=== PATIENT | female | born 1940 ===

== ENCOUNTER 2017-11-10 14:47 | Inpatient (IN) | payer MEDICARE ==
[2017-11-10] MEDS ORDERED: Ondansetron INJ* 2 MG/ML VIAL IV PRN (16:51)
[2017-11-10] MEDS ORDERED: Al Hydrox/Mg Hydrox/Simet LIQ* 30 ML UDC PO PRN (16:51)
[2017-11-10] MEDS ORDERED: NS 0.9% 1000 ML* 1,000 ML IV SCH (17:00)
[2017-11-10] MEDS ORDERED: Dextrose 50% Syringe 50 ML* 25 GM/50 ML SYRINGE IV PUSH PRN (17:05)
[2017-11-10] MEDS: Morphine VIAL* 4 MG/ML VIAL (1 ml vial) IV PRN ×3 (17:47→23:01)
[2017-11-10] MEDS: Ketorolac INJ* 15 MG/ML 1 ML VIAL IV PUSH PRN (17:49)
--- NOTE | 2017-11-10 18:01 | RAD ---
Indication: Shortness of breath. RIGHT femoral neck fracture Comparison: No relevant prior exams available on the [facility] PACS for comparison. Technique: Supine portable chest 1726 hours Report: Elevated lung volumes and both diffuse mild prominence of the interstitial markings and patchy rarefaction of the mid to upper lung zone interstitial markings. No pulmonary infiltrate. No pleural effusions or pneumothorax evident within limits of supine technique. The heart, pulmonary vasculature, and mediastinal contours are unremarkable. Hand superimposed at the epigastric region. Surgical clips at the level of the gallbladder fossa. IMPRESSION: Stigmata of obstructive lung disease. No acute pulmonary or cardiac process evident.
[2017-11-10 18:23] LABS: ABS Basophils 0.1 10^3/ul (0-0.2); ABS Eosinophils 0.1 10^3/ul (0-0.6); ABS Lymphocytes 0.5 10^3/ul (1.0-4.8); ABS Monocytes 0.8 10^3/ul (0-0.8); ABS Neutrophils 10.2 10^3/ul (1.5-7.7); ABS Nucleated RBC 0 10^3/ul; Eosinophil % 0.5 % (0-6); Hematocrit 38 % (35-47); Hemoglobin 12.4 g/dl (12.0-16.0); Lymphocyte % 4.4 % (25-47); Mean Corpuscular HGB Conc 33 g/dl (31-36); Mean Corpuscular Hemoglobin 28 pg (27-31); Mean Corpuscular Volume 84 fL (80-97); Mean Platelet Volume 7.7 um3 (7.4-10.4); Nucleated Red Blood Cells % 0; Platelet Count 316 10^3/ul (150-450); Red Blood Count 4.51 10^6/ul (4.00-5.40); Red Cell Distribution Width 16 % (10.5-15); White Blood Count 11.7 10^3/ul (3.5-10.8)
[2017-11-10 18:30] LABS: INR 0.94 (0.77-1.02)
[2017-11-10 18:58] LABS: Urine Appearance Cloudy; Urine Blood Negative (Negative); Urine Color Amber; Urine Ketones Negative (Negative); Urine Protein Negative (Negative); Urine Specific Gravity 1.028 (1.010-1.030); Urine Urobilinogen Negative (Negative)
--- NOTE | 2017-11-10 19:37 | HP ---
CC: Dr. Lund * ADMISSION HISTORY AND PHYSICAL: DATE OF ADMISSION: 11/10/17 PATIENT OF: Aroldo Manning MD ATTENDING HOSPITALIST: Dr. Manning.* (DICTATED BY DENA GONZALEZ) CONSULTING ORTHOPEDIST: Gerard Lund MD CHIEF COMPLAINT: Right hip pain. HISTORY OF PRESENT ILLNESS: Mrs. Torres is a 77-year-old female who apparently has a past medical history significant for hypertension, diabetes mellitus, and COPD, who was transferred from [facility] to [facility] earlier today after she sustained a fall at her residence at the [place]. The patient apparently sustained multiple falls where she resides at [facility]. I have on record two different pelvis x-rays dated from late August and most recent one yesterday that revealed a displaced right femoral fracture. The patient unfortunately has been suffering from a longstanding history of dementia and she could not provide me with any significant history at this time. I have tried to contact her healthcare proxy carrier, her daughter, Tanisha. Unfortunately, I have not been able to get a hold of her over the phone. According to the record I have from [facility], the patient was evaluated due to significant complaints of right hip pain after she sustained a fall yesterday morning. She was evaluated and had hip x-ray that revealed displaced femoral neck fracture. The patient was evaluated at [facility] initially and then contact was made to [facility] provider, who accepted the transfer of the patient in anticipation for probable orthopedic intervention to fix her broken hip. She appears to be in pain upon presentation and unfortunately does not provide me with any other significant medical history. She denies any chest pain or shortness of breath. PAST MEDICAL HISTORY: Significant for hypertension, insulin-dependent diabetes mellitus, and remote history of COPD, which apparently she has not been using any nebulizer due to prior allergy of ALBUTEROL. She also has history of advanced dementia and TIA long time ago. PAST SURGICAL HISTORY: Significant for tubal ligation and cholecystectomy. CURRENT MEDICATIONS: According to [facility] records, her medication include: 1. Acetaminophen 650 mg p.o. q.6 hours as needed for fever or pain. 2. Norvasc 10 mg p.o. daily. 3. Dulcolax 10 mg suppository once per rectum daily as needed for constipation. 4. Insulin regular. 5. Humalog per sliding scale q.a.c. and q.h.s. 6. Toradol 15 mg injection IM q. day as needed for pain. 7. Melatonin 1 mg p.o. q.h.s. as needed for insomnia. 8. Metformin 750 mg p.o. daily. 9. Milk of magnesia 15 mL p.o. p.r.n. for constipation. 10. [place] 5/325 one tablet p.o. q.4 hours as needed for pain. ALLERGIES: According to record, she is allergic to ALBUTEROL. SOCIAL HISTORY: The patient was living independently at [facility] until her recent admission to [facility]. She is a former smoker who smoked for many decades and quit a long time. She drinks alcohol occasionally. Again, per [facility] record, her healthcare proxy is her daughter, Tanisha, and her home phone number is area code [phone], [phone]. REVIEW OF SYSTEMS: Unable to obtain due to advanced dementia and very minimal verbal contact. PHYSICAL EXAMINATION GENERAL: She is a frail, elderly female, appears uncomfortable with complaints of right hip pain, but in no acute distress at the time of admission. VITAL SIGNS: There is no set of vitals available at the time of admission, but we will follow her up closely once stable. HEENT: Head is normocephalic, atraumatic. Sclerae anicteric. PERRLA. EOMs intact. Oropharynx is pink and moist. NECK: Supple. Trachea midline. No cervical adenopathy, thyromegaly, or JVD. LUNGS: Clear to auscultation bilaterally. HEART: Regular rate and rhythm. Normal S1 and S2 without rubs, murmurs, or gallops. BACK: With normal curvature and no CVA tenderness. ABDOMEN: Soft, nontender, and nondistended. No hernias, masses, or hepatosplenomegaly. BREAST EXAM: Deferred at this time. EXTREMITIES: Without cyanosis, clubbing, or edema. Examination of the right lower extremity revealed a slightly shorter lower extremity on the right side that appears to be internally rotated as well. There is a significant tenderness on minimal palpation to the greater trochanteric area. There is no visible ecchymosis or swelling noted. Right shoulder with an area of ecchymosis on top of humeral head and AC joint. There is minimal tenderness on palpation and no sensation of bony injuries. RECTAL: Exam deferred at this time. NEUROLOGIC: She is awake and alert at times, also appears drowsy at other times. She is not oriented to place, time, but occasionally oriented to self. LABORATORY WORKUP: CBC, CMP, PT, INR, and UA is pending at the time of admission. ACCESSORY DIAGNOSTIC DATA: Pelvic x-rays, right hip x-rays, portable chest as well as EKG are all pending at the time of admission. IMPRESSION: A 77-year-old female with past medical history of hypertension, COPD, and insulin-dependent diabetes mellitus, who sustained multiple falls at her residence at [facility] most recently yesterday, who was found to have a displaced right femoral neck fracture. ASSESSMENT AND PLAN: 1. Right femoral neck fracture. The patient will be admitted under hospitalist services to surgical stay unit for pain control. She will be seen by Dr. Lund for Orthopedic consultation. We will do her workup regarding labs and accessory diagnostic data as well as probable echocardiogram in the morning for further assessment in anticipation to surgical intervention in the near future. I will attempt again to call her daughter regarding plans of care since the patient has not given me any clear answer whether she wants to proceed with any intervention at this time or not. 2. Hypertension. We will continue her amlodipine. 3. Chronic obstructive pulmonary disease. Appears stable and good oxygen saturation. We will continue to monitor. 4. Insulin-dependent diabetes mellitus. We will continue to cover her with sliding scale with fingersticks q.a.c. and q.h.s. 5. DVT prophylaxis. She is at highest risk given her age and immobility. We will cover with subcu heparin as well as SCDs. 6. Code status: For the time being and according to record, she is a full code and we will visit this issue again once I get in touch with her daughter. DENA GONZALEZ [id number]/CPS #: [id number] MTDShakira
--- NOTE | 2017-11-10 20:16 | RAD ---
Indication: RIGHT hip pain. Question hip fracture. Comparison: No relevant prior exams available on the [facility] PACS for comparison. Technique: AP frog-leg pelvis. AP and crosstable lateral views RIGHT femur. Report: The RIGHT hip is normally located. No cortical disruption or gross trabecular irregularity evident to identify fracture. Assessment is limited as there is no AP view of the femoral head and neck. The remainder of the RIGHT femur is negative for fracture. Bone density appears decreased throughout. Moderate axial joint space narrowing and medial subchondral sclerosis and cystic change at the RIGHT hip. IMPRESSION: #. Limiting assessment for fracture given absence of an AP view of the RIGHT femoral head and neck. Consider repeat radiographic exam or CT for further assessment if deemed appropriate.
--- NOTE | 2017-11-10 20:16 | RAD ---
Indication: RIGHT hip pain. Question hip fracture. Comparison: No relevant prior exams available on the [facility] [place] for [place]. Technique: AP frog-leg pelvis. AP and crosstable lateral views RIGHT femur. Report: The RIGHT hip is normally located. No cortical disruption or gross trabecular irregularity evident to identify fracture. Assessment is limited as there is no AP view of the femoral head and neck. The remainder of the RIGHT femur is negative for fracture. Bone density appears decreased throughout. Moderate axial joint space narrowing and medial subchondral sclerosis and cystic change at the RIGHT hip. IMPRESSION: #. Limiting assessment for fracture given absence of an AP view of the RIGHT femoral head and neck. Consider repeat radiographic exam or CT for further assessment if deemed appropriate.
[2017-11-10] MEDS: Insulin LISPRO* 1 UNITS UNIT SUBCUT SCH (21:27)
[2017-11-10] MEDS: Heparin VIAL(*) 5000 UNITS/ML VIAL (FIVE THOUSAND) SUBCUT SCH (21:28)
[2017-11-10] MEDS: Docusate CAP* 100 MG PO SCH (21:30)
[2017-11-10 21:37] LABS: EGFR Non-African American 154.4 (>60)
--- NOTE | 2017-11-10 22:03 | PN ---
Progress Note - Progress Note Date of Service: 11/10/17 Note: Full note dictated in system prior to obtaining CT scan. The CT demonstrates a displaced femoral neck fracture. This would most appropriately be treated by a italia arthroplasty. Will discuss with my colleagues to help facilitate surgery when she is medically optimized. NPO after midnight.
[2017-11-10] MEDS ORDERED: HYDROmorphone INJ* 0.5 MG/0.5 ML SYRINGE ONE (23:22)
[2017-11-10] MEDS: HYDROmorphone INJ* 0.5 MG/0.5 ML SYRINGE IV PRN (23:24)
--- NOTE | 2017-11-11 01:03 | CONS ---
CC: PCP, Marty Silva MD * CONSULTATION REPORT: DATE OF CONSULT: 11/10/17 CHIEF COMPLAINT: Right hip pain. HISTORY OF PRESENT ILLNESS: Briefly, this H and P is obtained from [facility] admission history and physical from 09/23/17. Briefly , Merna Torres is a [facility] resident with advanced dementia, who presents with concerns for right hip fracture. She was transferred here. We have no imaging, no history other than this document. She is nonverbal and noncompliant. She is having difficulty with ambulation and altered mental status. I do not have any documents to tell me if she ambulates with an assistive device. She has family, apparently is not able to be reached today. She has right hip pain and has pain with moving the hip. She keeps it flexed and does not move it. She is very demented and confused. PAST MEDICAL HISTORY: Significant for diabetes, hypertension, COPD, history of TIA, history of smoking. Per this note, she has refused any efforts for smoking cessation, refused medical screening, preventative screenings, any lab testing. She obtains her medications from her physician, that is the only reason why she returns to the doctor. She has recent admission for altered mental status on 09/23/17. At that time, she was living independently, then they placed her in [facility]. PAST SURGICAL HISTORY: Significant for tubal ligation, history of cholecystectomy. MEDICATIONS: According to this note, her medications are: 1. Insulin. 2. Humalog. 3. Toradol. 4. Melatonin. 5. Metformin. 6. Milk of magnesia. 7. [place]. 8. Norvasc. 9. Dulcolax. 10. Acetaminophen. ALLERGIES: To ALBUTEROL. FAMILY HISTORY: Noncontributory and unobtainable. SOCIAL HISTORY: She is now a resident of [facility]. She was a smoker for many decades and drinks alcohol on occasion. I do not have any information as to whether she ambulates with assistive devices. She is currently lying in the bed. REVIEW OF SYSTEMS: Unable to be obtained. She does not document. She does not correspond with me. She does not acknowledge my exam. She does endorse pain and shouts with motion of the leg. She is not talking to us and she has advanced dementia. PHYSICAL EXAM: The patient was examined at approximately 5:20 p.m. She is not speaking to me. She is frail, appears uncomfortable with the right hip, does not move it. She spontaneously moves both her upper extremities and her left leg. Vitals were not available at the time of my seeing her, but my most recent set of vitals are temperature 98.5, pulse 79, respiratory rate 20, O2 saturation 97%, blood pressure 133/60. EOMI. Chest is clear to auscultation. Heart is regular rate and rhythm. Abdomen is soft and nontender. Examination of her right leg demonstrates she is sitting in the frog-legged position and will not move her right hip. She is flexed and externally rotated. Examination of the left leg demonstrates she is able to flex and extend her hip with spontaneous difficulty. She does not endorse sensation to light touch grossly distally on the right side and she will spontaneously flex and extend her digits. Her digits, she has brisk cap refill, she had 2+ PT pulse. Her calf is soft and compressible. DIAGNOSTIC STUDIES/LAB DATA: White blood cell count 11.7, hematocrit of 38, platelet count of 316, INR of 0.94. Chemistry: 134, potassium 4.5, chloride 96 , carbon dioxide 29, BUN 16, creatinine 0.4. Urine is negative for infection, but positive for glucose. X-rays were obtained that are very difficult to assess due to the patient not moving her hip. The right hip femoral neck is not easy to be evaluated. There appears to be no injury to the left femoral neck. Imaging are limited due to patient's inability to comply with x-rays. Images are of very poor quality and these are of the AP pelvis, likely it sounds impacted femoral neck. ASSESSMENT AND PLAN: This is a tricky situation. I saw the patient at 5:30 and x- rays were not done until approximately 7:30. We do not see obvious fracture, but she has some injury to her hip, likely she has a displaced femoral neck fracture. The family was unable to be reached at the time of presentation to [facility]. At this point, they do not have enough history and she needs to get medical optimization. I have asked for a CT scan of the pelvis to better delineate the fracture and I have ordered that stat. I will discuss the case with one of my partners to treat her surgically once we determine exactly what surgery is appropriate for her. She needs to be optimized medically prior to this happening and we need more information. [id number]/CPS #: [id number] GRISEL
[2017-11-11] MEDS ORDERED: NS 0.9% 1000 ML* 1,000 ML IV SCH (06:15)
[2017-11-11] MEDS: Heparin VIAL(*) 5000 UNITS/ML VIAL (FIVE THOUSAND) SUBCUT SCH (06:18)
[2017-11-11] MEDS: Docusate CAP* 100 MG PO SCH ×2 (07:12→21:16)
--- NOTE | 2017-11-11 07:18 | RAD ---
INDICATION: Traumatic fracture right hip. COMPARISON: Comparison is made with a prior x-ray study of the right femur and pelvis from November 10, 2017. TECHNIQUE: Contiguous axial sections were obtained through the pelvis without intravenous or oral contrast. Images were reconstructed in the coronal and sagittal planes. FINDINGS: The bones appear osteoporotic. There is a subcapital right femoral neck fracture. The fracture fragments are overriding. There is anterior displacement of the distal fragment relative the proximal fragment and rotation of the femur. There is varus angulation. There is nonspecific sclerotic change in the ischial tuberosity. 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 There is marked enlargement of the left psoas and iliacus muscles consistent with a mass, bulky adenopathy or hematoma. The visualized portion of the small bowel and colon appear nondistended. There is a catheter within the urinary bladder. No free intraperitoneal air or fluid is seen. IMPRESSION: 1. DISPLACED ANGULATED RIGHT SUBCAPITAL FEMORAL NECK FRACTURE. 2. SCLEROTIC LESION WITHIN THE RIGHT ISCHIAL TUBEROSITY. 3. ENLARGEMENT OF THE LEFT PSOAS AND ILIACUS MUSCLES MOST CONSISTENT WITH A MASS, BULKY ADENOPATHY OR HEMATOMA. RECOMMEND A CT OF THE CHEST, ABDOMEN AND PELVIS WITH CONTRAST FOR FURTHER EVALUATION.
[2017-11-11] MEDS: Insulin LISPRO* 1 UNITS UNIT SUBCUT SCH ×5 (07:27→23:58)
[2017-11-11] MEDS: amLODIPine TAB* 5 MG PO SCH (08:26)
[2017-11-11] MEDS: NS 0.9% 1000 ML* 1,000 ML IV SCH (10:12)
[2017-11-11 10:55] LABS: ABS Basophils 0 10^3/ul (0-0.2); ABS Eosinophils 0 10^3/ul (0-0.6); ABS Lymphocytes 0.5 10^3/ul (1.0-4.8); ABS Monocytes 0.7 10^3/ul (0-0.8); ABS Neutrophils 8.6 10^3/ul (1.5-7.7); ABS Nucleated RBC 0 10^3/ul; Eosinophil % 0.4 % (0-6); Hematocrit 36 % (35-47); Hemoglobin 11.8 g/dl (12.0-16.0); Lymphocyte % 5.4 % (25-47); Mean Corpuscular HGB Conc 33 g/dl (31-36); Mean Corpuscular Hemoglobin 28 pg (27-31); Mean Corpuscular Volume 84 fL (80-97); Mean Platelet Volume 7.4 um3 (7.4-10.4); Nucleated Red Blood Cells % 0.1; Platelet Count 319 10^3/ul (150-450); Red Blood Count 4.28 10^6/ul (4.00-5.40); Red Cell Distribution Width 16 % (10.5-15); White Blood Count 9.9 10^3/ul (3.5-10.8)
[2017-11-11] MEDS: HYDROmorphone INJ* 0.5 MG/0.5 ML SYRINGE IV PRN ×3 (10:59→21:20)
[2017-11-11 11:02] LABS: INR 0.94 (0.77-1.02)
[2017-11-11 11:14] LABS: EGFR Non-African American 180.1 (>60)
[2017-11-11] MEDS ORDERED: Iodixanol* (CONTRAST) 320 MG/ML 100 ML SDV IV ONE ×2 (11:39→19:20)
--- NOTE | 2017-11-11 11:42 | ECHO ---
Patient: DAVE THOMPSON [facility] Rec#: [id number] : 1940 Date: 11/11/2017 Age: 77y Height: 160 cm / 63.0 in Weight: 51.3 kg / 113.1 lbs Sex: F BSA: 1.5 Room#: 336 Admit Date#: 11/10/2017 Type: Inpatient Referring: Nany Byers Reading: Jono Hernández MD Carpet Inspector Finished: Marie Fairbanks RN RDCS CC: Marty Silva MD Transthoracic Echocardiogram Indication: Hypertension BP: 131/48 HR: 73 Rhythm: NSR with PACs Findings History: HTN, DM, COPD, former smoker, TIA, dementia Technical Comments: The study quality is fair. The study is technically limited due to the patient's history of COPD. The study was technically limited due to the patient's inability to lay in the left lateral decubitus position. Completed at 1115. Left Ventricle: The left ventricular chamber size is normal. Mild concentric left ventricular hypertrophy is observed. There is increased basal septal hypertrophy noted without evidence of an increased gradient across the left ventricular outflow tract. Global left ventricular wall motion and contractility are within normal limits. There is normal left ventricular systolic function. The estimated ejection fraction is 50-55%. There is an E to A reversal in the mitral valve flow pattern suggestive of diastolic dysfunction. Left Atrium: The left atrial chamber size is normal. Right Ventricle: The right ventricle wall thickness is mildly increased. The right ventricular cavity size is normal. The right ventricular global systolic function is normal. Right Atrium: The right atrial cavity size is normal. Aortic Valve: The aortic valve is trileaflet. The aortic valve leaflets are mildly thickened. There is mild to moderate aortic regurgitation. There is no evidence of aortic stenosis. Mitral Valve: The mitral valve leaflets are mildly thickened. There is mild to moderate mitral regurgitation. Tricuspid Valve: The tricuspid valve leaflets are normal. There is mild to moderate tricuspid regurgitation. There is evidence of mild to moderate pulmonary hypertension. Pulmonic Valve: The pulmonic valve structure is not well visualized. There is no evidence of pulmonic regurgitation. There is no pulmonic stenosis. Pericardium: There is no significant pericardial effusion. Aorta: The ascending aorta is not well visualized. There is no dilatation of the aortic arch. The aortic root is normal in size. Pulmonary Artery: The main pulmonary artery is not well visualized. Venous: The inferior vena cava appears normal in size. There is an approximate 50% respiratory change in the inferior vena cava dimension. Conclusions There is normal left ventricular systolic function. The estimated ejection fraction is 50-55%. Global left ventricular wall motion and contractility are within normal limits. Mild concentric left ventricular hypertrophy is observed. There is an E to A reversal in the mitral valve flow pattern suggestive of diastolic dysfunction. There is mild to moderate aortic regurgitation. There is mild to moderate mitral regurgitation. There is mild to moderate tricuspid regurgitation. There is evidence of mild to moderate pulmonary hypertension. There is no prior echocardiogram available to compare with at this time. Measurements Name Value Normal Range RVIDd (AP) 2D 2.2 cm (0.9 - 2.6) RVDdMajor (2D) 3 cm (2.2 - 4.4) RVAW (2D) 0.8 cm (0.2 - 0.5) RAd ISD 4CH 4.7 cm (3.4 - 4.9) RA (A4C)W 3.4 cm (2.9 - 4.6) IVSd (2D) 1.3 cm (0.6 - 1) LVPWd (2D) 1.2 cm (0.6 - 1) LVIDd (2D) 3.9 cm (3.6 - 5.4) LVIDs (2D) 2.8 cm - LV FS (2D) 28 % (25 - 45) Aortic Annulus 2.1 cm (1.4 - 2.6) Ao root diameter (2D) 3 cm (2.1 - 3.5) Aortic arch 2.4 cm (1.8 - 3.4) LA dimension (AP) 2D 3.2 cm (2.3 - 3.8) LAd ISD 4CH 4.7 cm (2.9 - 5.3) LA ISD 4CH W 4.3 cm (2.5 - 4.5) Name Value Normal Range LA ESV SP 4CH (A/L) 55 ml - LA ESV SP 2CH (A/L) 29 ml - LA ESV BP (A/L) 41 ml - LA ESV BP (A/L) index 27 ml/m2 - LA ESV SP 4CH (MOD) 48 ml - LA ESV SP 2CH (MOD) 28 ml - Name Value Normal Range MV E-wave Vmax 0.79 m/sec - MV deceleration time 234 msec - MV A-wave Vmax 1 m/sec - MV E:A ratio 0.79 ratio - LV septal e' Vmax 0.08 m/sec - LV lateral e' Vmax 0.1 m/sec - LV E:e' septal ratio 9.9 ratio - LV E:e' lateral ratio 7.9 ratio - Name Value Normal Range AV Vmax 1.4 m/sec - AV VTI 33.9 cm - AV peak gradient 8.3 mmHg - AV mean gradient 4.3 mmHg - LVOT Vmax 1.1 m/sec - LVOT VTI 22.7 cm - LVOT peak gradient 4.8 mmHg - LVOT mean gradient 2.4 mmHg - AR PHT 432 msec - AMINATA Vmax 0.59 m/sec - Name Value Normal Range TR Vmax 3.1 m/sec - TR peak gradient 38 mmHg - RAP 8 mmHg - RVSP 46 mmHg - IVC diameter 1.6 cm - Name Value Normal Range PV Vmax 1.2 m/sec -
--- NOTE | 2017-11-11 11:49 | PN ---
Progress Note - Progress Note Date of Service: 11/11/17 SOAP: Subjective: [] Patient seen at bedside. She is nonverbal. Her daughter Sara was present and able to provide greater detail of medical history. Per Sara patient's current mental status is much worse than usual. She does typically carry on conversation , appropriately, with confusion as to location. She has "slowed down "significantly since August when she began experiencing weakness and frequent falls. At this time she transitioned from independent living at home, walking with a walker and no home health support to living at [facility]. 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 Patient did tolerate surgery well in the remote past with no family history of adverse effects of anesthesia. Objective: [] Vital Signs Temp 99.9 F 11/11/17 11:42 Pulse 81 11/11/17 11:16 Resp 14 11/11/17 11:16 BP 152/54 11/11/17 11:16 Pulse Ox 98 11/11/17 11:16 Intake & Output 11/10/17 11/11/17 11/11/17 18:59 06:59 18:59 Intake Total 0 1786 Output Total 350 Balance -350 1786 Weight 113 lb 9.6 oz Intake: IV Fluids 1786 NS (0.9%) 1786 Oral 0 0 Output: [place] 350 Other: Estimated Void Medium Laboratory Last Values WBC 9.9 10^3/ul (3.5-10.8) 11/11/17 10:50 RBC 4.28 10^6/ul (4.00-5.40) 11/11/17 10:50 Hgb 11.8 g/dl (12.0-16.0) L 11/11/17 10:50 Hct 36 % (35-47) 11/11/17 10:50 MCV 84 fL (80-97) 11/11/17 10:50 MCH 28 pg (27-31) 11/11/17 10:50 MCHC 33 g/dl (31-36) 11/11/17 10:50 RDW 16 % (10.5-15) H 11/11/17 10:50 Plt Count 319 10^3/ul (150-450) 11/11/17 10:50 MPV 7.4 um3 (7.4-10.4) 11/11/17 10:50 Neut % (Auto) 86.9 % (38-83) H 11/11/17 10:50 Lymph % (Auto) 5.4 % (25-47) L 11/11/17 10:50 [place] % (Auto) 6.8 % (0-7) 11/11/17 10:50 Eos % (Auto) 0.4 % (0-6) 11/11/17 10:50 Baso % (Auto) 0.5 % (0-2) 11/11/17 10:50 Absolute Neuts (auto) 8.6 10^3/ul (1.5-7.7) H 11/11/17 10:50 Absolute Lymphs (auto) 0.5 10^3/ul (1.0-4.8) L 11/11/17 10:50 Absolute Monos (auto) 0.7 10^3/ul (0-0.8) 11/11/17 10:50 Absolute Eos (auto) 0 10^3/ul (0-0.6) 11/11/17 10:50 Absolute Basos (auto) 0 10^3/ul (0-0.2) 11/11/17 10:50 Absolute Nucleated RBC 0 10^3/ul 11/11/17 10:50 Nucleated RBC % 0.1 11/11/17 10:50 INR (Anticoag Therapy) 0.94 (0.77-1.02) 11/11/17 10:50 Sodium 136 mmol/L (135-145) 11/11/17 10:50 Potassium 4.1 mmol/L (3.5-5.0) 11/11/17 10:50 Chloride 99 mmol/L (101-111) L 11/11/17 10:50 Carbon Dioxide 30 mmol/L (22-32) 11/11/17 10:50 Anion Gap 7 mmol/L (2-11) 11/11/17 10:50 BUN 11 mg/dL (6-24) 11/11/17 10:50 Creatinine 0.35 mg/dL (0.51-0.95) L 11/11/17 10:50 Est GFR ( Amer) 217.9 (>60) 11/11/17 10:50 Est GFR (Non-Af Amer) 180.1 (>60) 11/11/17 10:50 BUN/Creatinine Ratio 31.4 (8-20) H 11/11/17 10:50 Glucose 101 mg/dL (70-100) H 11/11/17 10:50 POC Glucose (mg/dL) 89 mg/dL (70-100) 11/11/17 07:26 Calcium 8.5 mg/dL (8.6-10.3) L 11/11/17 10:50 Total Bilirubin 0.50 mg/dL (0.2-1.0) 11/10/17 18:17 AST 44 U/L (13-39) H 11/10/17 18:17 ALT 28 U/L (7-52) 11/10/17 18:17 Alkaline Phosphatase 229 U/L (34-104) H 11/10/17 18:17 Total Protein 5.4 g/dL (6.4-8.9) L 11/10/17 18:17 Albumin 2.8 g/dL (3.2-5.2) L 11/10/17 18:17 Globulin 2.6 g/dL (2-4) 11/10/17 18:17 Albumin/Globulin Ratio 1.1 (1-3) 11/10/17 18:17 Urine Color Megha 11/10/17 18:45 Urine Appearance Cloudy 11/10/17 18:45 Urine pH 5.0 (5-9) 11/10/17 18:45 Ur Specific Doss 1.028 (1.010-1.030) 11/10/17 18:45 Urine Protein Negative (Negative) 11/10/17 18:45 Urine Ketones Negative (Negative) 11/10/17 18:45 Urine Blood Negative (Negative) 11/10/17 18:45 Urine Nitrate Negative (Negative) 11/10/17 18:45 Urine Bilirubin Negative (Negative) 11/10/17 18:45 Urine Urobilinogen Negative (Negative) 11/10/17 18:45 Ur Leukocyte Esterase Negative (Negative) 11/10/17 18:45 Urine Glucose 2+(150 mg/dl) (Negative) A 11/10/17 18:45 Urine Ascorbic Acid * (Negative) A 11/10/17 18:45 General: Laying in bed, ill appearing, Nonverbal RLE: Patient laying frog legged. DP 2+, capillary refill less than two seconds distally. BL calves supple and nontender without erythema, edema or palpable cords. Assessment: []Right femoral neck fracture Plan: []NWB RLE Patient requires hemiarthroplasty. Daughter Sara ) is agreeable to surgical intervention and understands the need for medical optimization before considering surgery. At this time it is known that prior to determining optimization patient will have a CT and CTA head, blood cultures and review of echo findings. Orthopedics will continue to follow, and when medically optimized plan for right hemiarthroplasty.
--- NOTE | 2017-11-11 11:50 | PN ---
Subjective Date of Service: 11/11/17 Interval History: Patient seen and examined. Daughter at bedside. Ekta Simmons ortho PA also present. Per patient's daughter, her mentation is not this poor. She describes her as forgetful but appropriate and usually conversant. States she's had progressive weakness over the past few months, history of smoking and last CVA in 2000 with some mild right sided residual deficit. Unable to obtain ROS 2/2 confused state. But does yell and grimace with pain and repositioning. Objective Active Medications: Acetaminophen (Tylenol Tab*) 650 mg PO Q4H PRN PRN Reason: FEVER/PAIN Al Hydrox/Mg Hydrox/Simethicone (Maalox Plus*) 30 ml PO Q6H PRN PRN Reason: INDIGESTION Amlodipine Besylate (Norvasc Tab*) 10 mg PO DAILY [facility] Last Admin: 11/11/17 08:26 Dose: Not Given Dextrose (D50w Syringe 50 Ml*) 12.5 gm IV PUSH .FOR FS < 60 - SS PRN PRN Reason: FS < 60 Docusate Sodium (Colace Cap*) 100 mg PO BID [facility] Last Admin: 11/11/17 07:12 Dose: Not Given Hydromorphone HCl (Dilaudid Inj*) 1 mg IV Q3H PRN PRN Reason: PAIN Last Admin: 11/11/17 10:59 Dose: 1 mg Sodium Chloride (Ns 0.9% 1000 Ml*) 1,000 mls @ 75 mls/hr IV PER RATE [facility] Last Admin: 11/11/17 10:12 Dose: 75 mls/hr Insulin Human Lispro (Humalog*) 0 units SUBCUT ACHS [facility]; Protocol Last Admin: 11/11/17 07:27 Dose: Not Given Iodixanol (Visipaque* 320 (Contrast)) 80 ml IV ONCE ONE Stop: 11/11/17 11:40 Ketorolac Tromethamine (Toradol Inj*) 15 mg IV PUSH Q6H PRN PRN Reason: PAIN Last Admin: 11/10/17 17:49 Dose: 15 mg Magnesium Hydroxide (Milk Of Magnesia Liq*) 30 ml PO Q4H PRN PRN Reason: CONSTIPATION Ondansetron HCl (Zofran Inj*) 4 mg IV Q4H PRN PRN Reason: NAUSEA/VOMITING Oxycodone/Acetaminophen (Percocet 5/325 Tab*) 1 tab PO Q4H PRN PRN Reason: Pain Vital Signs - 8 hr 11/11/17 11/11/17 11/11/17 03:47 07:10 07:18 Temperature 98.4 F 98.5 F Pulse Rate 72 68 Respiratory 16 16 16 Rate Blood Pressure 133/53 131/48 (mmHg) O2 Sat by Pulse 98 99 Oximetry 11/11/17 11/11/17 11/11/17 10:59 11:16 11:42 Temperature 100.5 F 99.9 F Pulse Rate 81 Respiratory 18 14 Rate Blood Pressure 152/54 (mmHg) O2 Sat by Pulse 98 Oximetry Oxygen Devices in Use Now: Nasal Cannula Appearance: Alert, confused Eyes: No Scleral Icterus, PERRLA Ears/Nose/Mouth/Throat: - - dry oral mucosa Neck: Trachea Midline Respiratory: Symmetrical Chest Expansion and Respiratory Effort, - - diminished bases Cardiovascular: NL Sounds; No Murmurs; No JVD, RRR, No Edema Abdominal: NL Sounds; No Tenderness; No Distention Extremities: No Edema Skin: - - red, vascular mass on right shoulder with area of brown scabbing at center Neurological: - - confused, sometimes non-verbal Nutrition: Taking PO's Result Diagrams: 11/11/17 10:50 11/11/17 10:50 Microbiology and Other Data: Microbiology 11/10/17 15:40 Nasal Screen MRSA (PCR) - Final Nasal Mrsa Not Detected Diagnostic Imaging: Patient Name: DAVE THOMPSON Medical Record#: [id number] Ordering Physician: Gerard Lund MD Acct.#: [id number] : 1940 Age: 77 Sex: F Location: SURGICAL STAY UNIT Exam Date: 11/10/172106 ADM Status: ADM IN Order Information: CT PELVIS W/O Accession Number: [id number] CPT: 13052 INDICATION: Traumatic fracture right hip. COMPARISON: Comparison is made with a prior x-ray study of the right femur and pelvis from November 10, 2017. TECHNIQUE: Contiguous axial sections were obtained through the pelvis without intravenous or oral contrast. Images were reconstructed in the coronal and sagittal planes. FINDINGS: The bones appear osteoporotic. There is a subcapital right femoral neck fracture. The fracture fragments are overriding. There is anterior displacement of the distal fragment relative the proximal fragment and rotation of the femur. There is varus angulation. There is nonspecific sclerotic change in the ischial tuberosity. 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 There is marked enlargement of the left psoas and iliacus muscles consistent with a mass, bulky adenopathy or hematoma. The visualized portion of the small bowel and colon appear nondistended. There is a catheter within the urinary bladder. No free intraperitoneal air or fluid is seen. IMPRESSION: 1. DISPLACED ANGULATED RIGHT SUBCAPITAL FEMORAL NECK FRACTURE. 2. SCLEROTIC LESION WITHIN THE RIGHT ISCHIAL TUBEROSITY. 3. ENLARGEMENT OF THE LEFT PSOAS AND ILIACUS MUSCLES MOST CONSISTENT WITH A MASS , BULKY ADENOPATHY OR HEMATOMA. RECOMMEND A CT OF THE CHEST, ABDOMEN AND PELVIS WITH CONTRAST FOR FURTHER EVALUATION. <Electronically signed by Juan Manuel Linda MD in [place]> 11/11/17714 Dictated By: Juan Manuel Linda MD Dictated Date/Time: 11/11/17714 Transcribed Date/Time: 11/11/17705 Copy to: CTA HEAD and NECK Conclusion: [facility] Patient Name:DAVE THOMPSON MR: [id number] : 1940 LYMPH NODES: There is biapical emphysematous change. BONES AND SOFT TISSUES: No bone or soft tissue abnormalities are noted. CTA HEAD: INTRACRANIAL CIRCULATION: There is no aneurysm, vascular malformation, occlusion , or stenosis of the visualized intracranial circulation. The anterior communicating artery complex is clear. Bilateral posterior communicating arteries are identified. VENOUS CIRCULATION: The venous system is unremarkable. PERFUSION: There is no obvious parenchymal perfusion deficit. HEMORRHAGE/INFARCT: There is no hemorrhage or acute infarct. MASSES/SHIFT: There is no mass or shift. EXTRA-AXIAL SPACES: There are no extra-axial fluid collections. SULCI AND VENTRICLES: The sulci and ventricles are normal in size and position for the patient's stated age. CEREBRUM: There is hypoattenuation of the periventricular and subcortical white matter. BRAINSTEM: There are no focal parenchymal abnormalities. CEREBELLUM: There are no focal parenchymal abnormalities. PARANASAL SINUSES: The paranasal sinuses are clear. ORBITS: The orbits are unremarkable. BONES AND SOFT TISSUE: Degenerative changes are noted of the spine. There are multiple lobulated masses of the right shoulder musculature, and evaluated on the current examination. OTHER: There is no abnormal enhancement. IMPRESSION: 1. NO INTERNAL CAROTID ARTERY STENOSIS BY NASCET CRITERIA. 2. NO ANEURYSM, VASCULAR MALFORMATION, OCCLUSION, OR STENOSIS OF THE VISUALIZED INTRACRANIAL CIRCULATION.. 3. ATHEROSCLEROSIS. 4. PROXIMAL VESSEL ISCHEMIC CHANGE. 5. NO ACUTE INTRACRANIAL PATHOLOGY. 6. MULTIPLE LOBULATED MASSES OF THE MUSCULATURE OF THE RIGHT SHOULDER GIRDLE, EVALUATED ON THE CURRENT EXAMINATION SUSPICIOUS FOR SARCOMA VERSUS METASTATIC DISEASE. MRI BRAIN Patient Name: DAVE THOMPSON Medical Record#: [id number] Ordering Physician: Nany Short NP Acct.#: [id number] : 1940 Age: 77 Sex: F Location: SURGICAL STAY UNIT Exam Date: 11/11/17 1507 ADM Status: ADM IN Order Information: MRI BRAIN W/O Accession Number: [id number] CPT: 59290 Indication: Worsening confusion and weakness. Previous CVAs with residual RIGHT- sided weakness. Comparison: CT and CTA head neck exams of the same date. Technique: Nexamp Ferney 1.5 Tatiana [id number] with GEM suite. MRI brain without contrast. Report: Diffusion series is negative for acute or subacute ischemia. Susceptibility series is negative for stigmata of hemosiderin deposition to indicate previous hemorrhage. Mild prominence of the cerebral sulci and cerebellar fissures collecting atrophy. Proportional ventricular enlargement. Patent basal cisterns. Disproportionate mild volume loss and T2 hyperintense ischemic gliosis at the LEFT middle cerebral artery distribution of the frontal and parietal lobes consistent with sequela of previous infarct. Additional few nonspecific T2 hyperintense foci within the cerebral white matter without mass effect. No extra-axial fluid collection evident. Preserved major intracranial flow- voids. Unremarkable orbital contents. No suspicious calvarial or skull base lesions evident. Mucous retention cyst or polyp at the inferior LEFT maxillary sinus. Unremarkable scalp. IMPRESSION: #. Negative for stigmata of acute or subacute ischemia. #. Relative mild encephalomalacia related to old LEFT MCA distribution infarct involving the posterior LEFT frontal lobe and parietal lobe. #. Mild diffuse atrophy and stigmata of chronic small vessel ischemic disease. <Electronically signed by Surinder Sung MD in [place]> 11/11/17 1632 Dictated By: Surinder Sung MD Dictated Date/Time: 11/11/17 1632 Transcribed Date/Time: 11/11/17 1623 Copy to: CARDIAC ECHO Conclusions There is normal left ventricular systolic function. The estimated ejection fraction is 50-55%. Global left ventricular wall motion and contractility are within normal limits. Mild concentric left ventricular hypertrophy is observed. There is an E to A reversal in the mitral valve flow pattern suggestive of diastolic dysfunction. There is mild to moderate aortic regurgitation. There is mild to moderate mitral regurgitation. There is mild to moderate tricuspid regurgitation. There is evidence of mild to moderate pulmonary hypertension. There is no prior echocardiogram available to compare with at this time. Assess/Plan/Problems-Billing Assessment: This is a 77 year old female patient transferred from a [facility] for femur fracture 2/2 unwitnessed fall. PMHx sig for COPD, previous CVAs, DM and HTN that presents with right a displaced subcapital femoral neck fracture and psoas hematoma. - Patient Problems (1) Femoral neck fracture Code(s): S72.009A - FRACTURE OF UNSP PART OF NECK OF UNSP FEMUR, INIT SNOMED Code(s): 2466562 Comment: - Unwitnessed fall, right side fracture - CT pelvis is showing psoas mass on the left/contralateral side to the fracture and a sclerotic lesion of the ischial tuberosity - Concern for pathologic fracture - Patient is NOT medically optimized for surgery. If these lesions are metastatic disease, conversation must be had with the daughter about options (2) History of CVA (cerebrovascular accident) Code(s): Z86.73 - PRSNL HX OF TIA (TIA), AND CEREB INFRC W/O RESID DEFICITS SNOMED Code(s): 841417800 Comment: - Per patient's daughter she is sometimes forgetful, however, she can usually converse and is appropriate - Current presentation highly concerning for neuro deficit, she is very confused - Scans as above, no CVA or masses noted - May be TME, however etiology is unclear at this time - Continue supportive care (3) Hypertension Code(s): I10 - ESSENTIAL (PRIMARY) HYPERTENSION SNOMED Code(s): 32867209 Comment: - BP stable (4) COPD (chronic obstructive pulmonary disease) Code(s): J44.9 - CHRONIC OBSTRUCTIVE PULMONARY DISEASE, UNSPECIFIED SNOMED Code(s): 66898844 Comment: - CXR with COPD changes - allergy to albuterol per record - Continue supportive O2 (5) Neoplasm Code(s): D49.9 - NEOPLASM OF UNSPECIFIED BEHAVIOR OF UNSPECIFIED SITE SNOMED Code(s): 47087247 Comment: - CTA of the neck visualized local mass in the muscularture of the right shouder - Given the mass in the psoas, this is highly suspicious for metastatic disease /sarcoma? - Will send for CT chest, abdomen and pelvis with contrast, with hx of smoking may have primary site in the chest - Reommend oncology evaluate in the morning when scans complete (6) Full code status Code(s): Z78.9 - OTHER SPECIFIED HEALTH STATUS SNOMED Code(s): 281319129 Status and Disposition: Remain inpatient. Patient will likely not be able to have surgery here for repair if she has a pathologic fracture 2/2 metastatic disease which is a new diagnosis. Will call daughter to discuss.
--- NOTE | 2017-11-11 12:45 | RAD ---
HISTORY: CVA COMPARISONS: None TECHNIQUE: Multiple contiguous axial CT scans were obtained of the head, before and after, and of the neck after the administration of nonionic intravenous contrast timed to the systemic arterial phase of contrast enhancement. Coronal and sagittal multiplanar reformations are submitted for review. Multiple 3-D maximum intensity projection reconstructions are also submitted for review. FINDINGS: The study CTA NECK: AORTIC ARCH: There is calcific atherosclerotic disease of the aortic arch, without ostial or proximal stenosis of the cephalic great vessels. There is a normal three-vessel branching pattern. RIGHT VERTEBRAL ARTERY: The right vertebral artery is patent along its course, without stenosis. LEFT VERTEBRAL ARTERY: The left vertebral artery is patent along its course, without stenosis. DOMINANCE: The vertebral arteries are codominant. RIGHT COMMON CAROTID ARTERY: The right common carotid artery is patent. The right carotid bifurcation occurs at C4-C5 RIGHT INTERNAL CAROTID ARTERY: There is atheromatous disease of the right carotid bifurcation, without right internal carotid artery stenosis by NASCET criteria. RIGHT EXTERNAL CAROTID ARTERY: The right external carotid artery is unremarkable. LEFT COMMON CAROTID ARTERY: The left common carotid artery is patent. The left carotid bifurcation occurs at C3-C4 LEFT INTERNAL CAROTID ARTERY: There is atheromatous disease of the left carotid bifurcation, without left internal carotid artery stenosis by NASCET criteria. LEFT EXTERNAL CAROTID ARTERY: The left external carotid artery is unremarkable. VENOUS CIRCULATION: The venous system is unremarkable. SALIVARY GLANDS: The parotid glands, submandibular glands, sublingual glands are normal. NASAL CAVITY/NASOPHARYNX: The nasal cavity and nasopharynx are normal. ORAL CAVITY/OROPHARYNX: The oral cavity and oropharynx are unremarkable. LARYNGEAL APPARATUS/HYPOPHARYNX: The laryngeal apparatus and hypopharynx are normal. UPPER AIRWAY/UPPER ESOPHAGUS: The visualized upper airway and esophagus are normal. LUNG APICES: The lung apices are clear. THYROID GLAND: The thyroid gland is heterogeneous. LYMPH NODES: There is biapical emphysematous change. BONES AND SOFT TISSUES: No bone or soft tissue abnormalities are noted. CTA HEAD: INTRACRANIAL CIRCULATION: There is no aneurysm, vascular malformation, occlusion, or stenosis of the visualized intracranial circulation. The anterior communicating artery complex is clear. Bilateral posterior communicating arteries are identified. VENOUS CIRCULATION: The venous system is unremarkable. PERFUSION: There is no obvious parenchymal perfusion deficit. HEMORRHAGE/INFARCT: There is no hemorrhage or acute infarct. MASSES/SHIFT: There is no mass or shift. EXTRA-AXIAL SPACES: There are no extra-axial fluid collections. SULCI AND VENTRICLES: The sulci and ventricles are normal in size and position for the patient's stated age. CEREBRUM: There is hypoattenuation of the periventricular and subcortical white matter. BRAINSTEM: There are no focal parenchymal abnormalities. CEREBELLUM: There are no focal parenchymal abnormalities. PARANASAL SINUSES: The paranasal sinuses are clear. ORBITS: The orbits are unremarkable. BONES AND SOFT TISSUE: Degenerative changes are noted of the spine. There are multiple lobulated masses of the right shoulder musculature, and evaluated on the current examination. OTHER: There is no abnormal enhancement. IMPRESSION: 1. NO INTERNAL CAROTID ARTERY STENOSIS BY NASCET CRITERIA. 2. NO ANEURYSM, VASCULAR MALFORMATION, OCCLUSION, OR STENOSIS OF THE VISUALIZED INTRACRANIAL CIRCULATION.. 3. ATHEROSCLEROSIS. 4. PROXIMAL VESSEL ISCHEMIC CHANGE. 5. NO ACUTE INTRACRANIAL PATHOLOGY. 6. MULTIPLE LOBULATED MASSES OF THE MUSCULATURE OF THE RIGHT SHOULDER GIRDLE, EVALUATED ON THE CURRENT EXAMINATION SUSPICIOUS FOR SARCOMA VERSUS METASTATIC DISEASE. CPT II Codes: 3100F
--- NOTE | 2017-11-11 16:35 | RAD ---
Indication: Worsening confusion and weakness. Previous CVAs with residual RIGHT-sided weakness. Comparison: CT and CTA head neck exams of the same date. Technique: Seeqa 1.5 Tatiana [id number] with GEM suite. MRI brain without contrast. Report: Diffusion series is negative for acute or subacute ischemia. Susceptibility series is negative for stigmata of hemosiderin deposition to indicate previous hemorrhage. Mild prominence of the cerebral sulci and cerebellar fissures collecting atrophy. Proportional ventricular enlargement. Patent basal cisterns. Disproportionate mild volume loss and T2 hyperintense ischemic gliosis at the LEFT middle cerebral artery distribution of the frontal and parietal lobes consistent with sequela of previous infarct. Additional few nonspecific T2 hyperintense foci within the cerebral white matter without mass effect. No extra-axial fluid collection evident. Preserved major intracranial flow-voids. Unremarkable orbital contents. No suspicious calvarial or skull base lesions evident. Mucous retention cyst or polyp at the inferior LEFT maxillary sinus. Unremarkable scalp. IMPRESSION: #. Negative for stigmata of acute or subacute ischemia. #. Relative mild encephalomalacia related to old LEFT MCA distribution infarct involving the posterior LEFT frontal lobe and parietal lobe. #. Mild diffuse atrophy and stigmata of chronic small vessel ischemic disease.
[2017-11-11] MEDS ORDERED: Insulin LISPRO* 1 UNITS UNIT SUBCUT SCH (17:00)
--- NOTE | 2017-11-11 17:43 | PN ---
PROGRESS NOTE: DATE OF VISIT: 11/11/17 HISTORY OF PRESENT ILLNESS: Merna is here on the orthopedic service, but is having an aggressive workup by Medicine and possibly Oncology. Her unwitnessed fall resulted in a right subcapital femur fracture. The CT scan of the pelvis is questionable for a mass in the area of the iliopsoas or at least the obturator canal and some patchy lucencies through the ileum bilaterally. She has recently had a brain MRI to investigate this rapid deterioration in mental status, which may be related to aggressive metastatic disease, although we do not know a primary source. Workup is underway for x-ray imaging of the chest and abdomen. PHYSICAL EXAMINATION: Lady is lying in bed with her hip abducted flexed and there is significant pain verbalized when I moved her lower extremity even an inch or so. She does appear to be able to move her toes up and down and the skin appears to be intact per nursing notes. IMPRESSION AND PLAN: She certainly could have a hemiarthroplasty at this hospital. We would send her femoral head for pathology and some scrapings of the canal, but I think Anesthesia would have to be consulted to see if they would be amenable to intervention. She will have to prevent significant nursing issues if some kind of hip stabilization is not performed as she does not tolerate really any log rolling or motion. We will await the further evaluation by the medical team as far as underlying medical diagnoses. [id number]/[facility] #: [id number] GRISEL
--- NOTE | 2017-11-11 21:21 | RAD ---
INDICATION: RIGHT femoral neck fracture. Assess for tumor. COMPARISON: November 10, [address] pelvis. TECHNIQUE: Multidetector CT images were obtained from the lung apices to the ischial tuberosities with 64 mL Visipaque 320 IV contrast. No oral contrast administered. CHEST REPORT: Advanced emphysema. Small dependent RIGHT and trace dependent LEFT pleural effusions with proportional atelectasis. Negative for pneumothorax. LEFT axillary lymphadenopathy with coalescent verenice mass measuring up to 3.2 x 5.2 cm. Negative for mediastinal or hilar lymphadenopathy. Negative for cardiomegaly or pericardial effusion. Atherosclerotic plaque of the normal diameter thoracic aorta. Negative for arterial dissection. Ill-defined lobular soft tissue hematoma involving the RIGHT trapezius muscle at the superior posterior margin of the shoulder and probable additional tumor involving the RIGHT infraspinatus and teres minor muscles. Ill-defined sclerotic lesion at the T5 vertebral body. Similar ill-defined sclerotic lesion at the T10 vertebral body at the RIGHT margin. Osteoblastic lesion at the LEFT third rib laterally. CHEST IMPRESSION: #. Small RIGHT and trace LEFT pleural effusions with proportional atelectasis. #. LEFT axillary lymphadenopathy. #. Ill-defined lobular soft tissue hematoma involving the RIGHT trapezius muscle at the superior posterior margin of the shoulder and probable additional tumor involving the RIGHT infraspinatus and teres minor muscles. #. T5, T10, and LEFT third rib osteoblastic lesions. ABDOMEN PELVIS REPORT: Post cholecystectomy. Mild intrahepatic biliary dilatation. Negative for dilatation of the common bile duct. Negative for focal hepatic lesions. Atrophic pancreas. Negative for pancreatic duct dilatation. Unremarkable spleen. No CT abnormality of the upper GI or small bowel. The appendix is not visualized. Unremarkable colon. Gas distention of the rectum. Small volume of free fluid in the cul-de-sac. Negative for free air or hernias. 3.1 x 2.1 cm soft tissue density RIGHT adrenal mass. Negative for focal LEFT adrenal lesions. Negative for suspicious focal renal lesions or hydronephrosis. Small cortical cyst at the inferior pole of the LEFT kidney. The ureters are obscured due to retroperitoneal lymphadenopathy. No ureteral dilatation evident. Catheterized largely decompressed urinary bladder without suspicious finding. Anteverted uterus. 3 cm mildly hyperdense lesion at the fundus of the uterus most suspicious for a fibroid. No ovarian lesions evident. Extensive retroperitoneal lymphadenopathy primarily LEFT para-aortic and external iliac with coalescent adenopathy inseparable from an enlarged LEFT iliopsoas muscle. Coalescent verenice mass and LEFT psoas muscle measures up to 6.4 cm AP by 5.6 cm transverse at the pelvic inlet compared with 2.9 x 2.5 cm for the normal-appearing RIGHT psoas muscle. Dominant RIGHT common femoral lymph node measures 2 cm short axis. Extensive atherosclerotic plaque at the abdominal aorta and iliac arteries. Borderline mild fusiform aneurysm of the infrarenal abdominal aorta measuring up to 2.3 cm diameter compared with the more proximal segment of the abdominal aorta which measures only 1.3 cm diameter. Subcapital RIGHT femoral neck fracture with apex anterior and varus angulation. Osteoblastic lesion at the RIGHT ischial tuberosity with flanking soft tissue density mass extending both medially and laterally from the ischium. ABDOMEN PELVIS IMPRESSION: #. Nonspecific 3.1 cm RIGHT adrenal mass suspicious for metastasis. #. Negative for obstructive uropathy. #. Extensive retroperitoneal lymphadenopathy as described. #. 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 #. Subcapital RIGHT femoral neck fracture with apex anterior and varus angulation. Osteoblastic lesion at the RIGHT ischial tuberosity with flanking soft tissue density mass extending both medially and laterally from the ischium. #. Consider fine-needle aspiration of the dominant RIGHT common femoral level lymph node for histopathologic assessment.
[2017-11-12] MEDS: HYDROmorphone INJ* 0.5 MG/0.5 ML SYRINGE IV PRN ×5 (00:29→20:47)
[2017-11-12] MEDS: NS 0.9% 1000 ML* 1,000 ML IV SCH ×2 (02:50→15:35)
[2017-11-12] MEDS: Insulin LISPRO* 1 UNITS UNIT SUBCUT SCH ×3 (05:36→18:04)
[2017-11-12] MEDS: amLODIPine TAB* 5 MG PO SCH (08:54)
[2017-11-12] MEDS: Docusate CAP* 100 MG PO SCH ×2 (08:54→20:40)
--- NOTE | 2017-11-12 09:48 | PN ---
Progress Note - Progress Note Date of Service: 11/12/17 SOAP: Subjective: Pt is lying comfortably in bed. Nonverbal to questions asked Objective: PE- 77 y/o WDWN F lying comfortably in bed RLE- skin intact, no warmth or erythema, frog leg position, calf soft NT, brisk cap refill, + 2 PT pulse, SILT distally Vital Signs Temp Pulse Resp BP Pulse Ox 97.4 F 75 20 151/41 95 11/12/17 07:17 11/12/17 07:17 11/12/17 09:40 11/12/17 07:17 11/12/17 07:17 Laboratory Results - last 24 hr 11/11/17 11/11/17 11/11/17 10:50 10:50 10:50 WBC 9.9 RBC 4.28 Hgb 11.8 L Hct 36 MCV 84 MCH 28 MCHC 33 RDW 16 H Plt Count 319 MPV 7.4 Neut % (Auto) 86.9 H Lymph % (Auto) 5.4 L Spink % (Auto) 6.8 Eos % (Auto) 0.4 Baso % (Auto) 0.5 Absolute Neuts (auto) 8.6 H Absolute Lymphs (auto) 0.5 L Absolute Monos (auto) 0.7 Absolute Eos (auto) 0 Absolute Basos (auto) 0 Absolute Nucleated RBC 0 Nucleated RBC % 0.1 INR (Anticoag Therapy) 0.94 Sodium 136 Potassium 4.1 Chloride 99 L Carbon Dioxide 30 Anion Gap 7 BUN 11 Creatinine 0.35 L Est GFR ( Amer) 217.9 Est GFR (Non-Af Amer) 180.1 BUN/Creatinine Ratio 31.4 H Glucose 101 H POC Glucose (mg/dL) Calcium 8.5 L 11/11/17 11/11/17 11/11/17 12:35 17:47 23:57 WBC RBC Hgb Hct MCV MCH MCHC RDW Plt Count MPV Neut % (Auto) Lymph % (Auto) Spink % (Auto) Eos % (Auto) Baso % (Auto) Absolute Neuts (auto) Absolute Lymphs (auto) Absolute Monos (auto) Absolute Eos (auto) Absolute Basos (auto) Absolute Nucleated RBC Nucleated RBC % INR (Anticoag Therapy) Sodium Potassium Chloride Carbon Dioxide Anion Gap BUN Creatinine Est GFR ( Amer) Est GFR (Non-Af Amer) BUN/Creatinine Ratio Glucose POC Glucose (mg/dL) 97 107 H 98 Calcium 11/12/17 05:35 WBC RBC Hgb Hct MCV MCH MCHC RDW Plt Count MPV Neut % (Auto) Lymph % (Auto) Spink % (Auto) Eos % (Auto) Baso % (Auto) Absolute Neuts (auto) Absolute Lymphs (auto) Absolute Monos (auto) Absolute Eos (auto) Absolute Basos (auto) Absolute Nucleated RBC Nucleated RBC % INR (Anticoag Therapy) Sodium Potassium Chloride Carbon Dioxide Anion Gap BUN Creatinine Est GFR ( Amer) Est GFR (Non-Af Amer) BUN/Creatinine Ratio Glucose POC Glucose (mg/dL) 93 Calcium Assessment: Right femoral neck fx Plan: NWB RLE Discussed with hospitalist and Dr. Thorne, high suspicion for cancer with metastasis and a pathological fx, Per Dr. Thorne will likely get fine needle aspiration of axillary mass to further investigate. Pt will likely need palliative care/hospice. If the family would like surgery the patient would likely have to be transferred for a hemiarthroplasty in the presence of a pathological fracture Cont pain control Orthopedics will cont to follow
[2017-11-12] MEDS ORDERED: Diazepam INJ (NF) 5 MG/ML 10 ML VIAL (50 MG TOTAL) IV PRN ×2 (11:15→14:03)
[2017-11-12] MEDS: Ketorolac INJ* 15 MG/ML 1 ML VIAL IV PUSH PRN (11:40)
--- NOTE | 2017-11-12 12:07 | PN ---
Subjective Date of Service: 11/12/17 Interval History: Patient continues to be drowsy and moan in apparent pain intermittently. Per Nursing staff was able to respond to a couple questions intermittently. Unable to engage in ROS. Discussed with daughter, she is not insistent on surgery for her mother's hip if she ends up having widespread cancer. Family History: Unchanged from Admission Social History: Unchanged from Admission Past Medical History: Unchanged from Admission Objective Active Medications: Acetaminophen (Tylenol Tab*) 650 mg PO Q4H PRN PRN Reason: FEVER/PAIN Al Hydrox/Mg Hydrox/Simethicone (Maalox Plus*) 30 ml PO Q6H PRN PRN Reason: INDIGESTION Amlodipine Besylate (Norvasc Tab*) 10 mg PO DAILY [facility] Last Admin: 11/12/17 08:54 Dose: Not Given Cyclobenzaprine HCl (Flexeril Tab*) 5 mg PO TID PRN PRN Reason: SPASMS Dextrose (D50w Syringe 50 Ml*) 12.5 gm IV PUSH .FOR FS < 60 - SS PRN PRN Reason: FS < 60 Diazepam (Valium Inj (Nf)) 2 mg IV Q8H PRN PRN Reason: ANXIETY Docusate Sodium (Colace Cap*) 100 mg PO BID [facility] Last Admin: 11/12/17 08:54 Dose: Not Given Hydromorphone HCl (Dilaudid Inj*) 1 mg IV Q3H PRN PRN Reason: PAIN Last Admin: 11/12/17 09:40 Dose: 1 mg Sodium Chloride (Ns 0.9% 1000 Ml*) 1,000 mls @ 75 mls/hr IV PER RATE [facility] Last Admin: 11/12/17 02:50 Dose: 75 mls/hr Insulin Human Lispro (Humalog*) 0 units SUBCUT 0000,0600,1200,1800 [facility]; Protocol Last Admin: 11/12/17 11:43 Dose: Not Given Ketorolac Tromethamine (Toradol Inj*) 15 mg IV PUSH Q6H PRN PRN Reason: PAIN Last Admin: 11/12/17 11:40 Dose: 15 mg Magnesium Hydroxide (Milk Of Magnesia Liq*) 30 ml PO Q4H PRN PRN Reason: CONSTIPATION Ondansetron HCl (Zofran Inj*) 4 mg IV Q4H PRN PRN Reason: NAUSEA/VOMITING Oxycodone/Acetaminophen (Percocet 5/325 Tab*) 1 tab PO Q4H PRN PRN Reason: Pain Vital Signs - 8 hr 11/12/17 11/12/17 11/12/17 05:02 06:29 07:17 Temperature 97.4 F Pulse Rate 75 Respiratory 16 16 16 Rate Blood Pressure 151/41 (mmHg) O2 Sat by Pulse 95 Oximetry 11/12/17 11/12/17 11/12/17 07:40 09:40 11:27 Temperature 98.9 F Pulse Rate 81 Respiratory 18 20 16 Rate Blood Pressure 146/51 (mmHg) O2 Sat by Pulse 92 Oximetry 11/12/17 11:34 Temperature Pulse Rate Respiratory 16 Rate Blood Pressure (mmHg) O2 Sat by Pulse Oximetry Oxygen Devices in Use Now: Nasal Cannula Appearance: Patient is a 77yo female who appears stated age and is sitting in the bed moaning occasionally in apparent pain. Eyes: No Scleral Icterus, PERRLA Ears/Nose/Mouth/Throat: NL Teeth, Lips, Gums, Clear Oropharnyx, Mucous Membranes Moist Neck: NL Appearance and Movements; NL JVP, Trachea Midline Respiratory: Symmetrical Chest Expansion and Respiratory Effort, Clear to Auscultation Cardiovascular: NL Sounds; No Murmurs; No JVD, RRR, No Edema Abdominal: NL Sounds; No Tenderness; No Distention, No Hepatosplenomegaly Lymphatic: No Cervical Adenopathy, - - Left axillary mass. Right shoulder mass. Extremities: No Edema, No Clubbing, Cyanosis Skin: No Rash or Ulcers, No Nodules or Sclerosis Result Diagrams: 11/11/17 10:50 11/11/17 10:50 Microbiology and Other Data: Microbiology 11/10/17 15:40 Nasal Screen MRSA (PCR) - Final Nasal Mrsa Not Detected Assess/Plan/Problems-Billing Assessment: This is a 77 year old female patient transferred from a halfway for femur fracture 2/2 unwitnessed fall. PMHx sig for COPD, previous CVAs, DM and HTN that presents with a right sided displaced subcapital femoral neck fracture and multiple masses concerning for malignancy. - Patient Problems (1) Neoplasm Current Visit: Yes Status: Acute Code(s): D49.9 - NEOPLASM OF UNSPECIFIED BEHAVIOR OF UNSPECIFIED SITE SNOMED Code(s): 50235027 Comment: CTA of the neck visualized local mass in the muscularture of the right shouder Given the mass in the psoas, this is highly suspicious for metastatic disease/ sarcoma? CT chest, abdomen and pelvis with contrast shows numeroud masses. Appreciate oncology input. FNA of left axillary mass pending. (2) COPD (chronic obstructive pulmonary disease) Current Visit: Yes Status: Acute Code(s): J44.9 - CHRONIC OBSTRUCTIVE PULMONARY DISEASE, UNSPECIFIED SNOMED Code(s): 15603274 Comment: CXR with COPD changes Allergy to albuterol per record Continue supportive O2 No signs of exacerbation. (3) Femoral neck fracture Current Visit: Yes Status: Acute Code(s): S72.009A - FRACTURE OF UNSP PART OF NECK OF UNSP FEMUR, INIT SNOMED Code(s): 9489341 Comment: Unwitnessed fall, right side fracture CT pelvis is showing psoas mass on the left/contralateral side to the fracture and a sclerotic lesion of the ischial tuberosity Concern for pathologic fracture Patient is NOT medically optimized for surgery. Discussed with daughter and she is not insistant on going forward with surgery Will need to be transferred if surgery indicated. Does not appear to be main source of patient discomfort. (4) History of CVA (cerebrovascular accident) Current Visit: Yes Status: Acute Code(s): Z86.73 - PRSNL HX OF TIA (TIA), AND CEREB INFRC W/O RESID DEFICITS SNOMED Code(s): 925113671 Comment: Per patient's daughter she is sometimes forgetful, however, she can usually converse and is appropriate Unclear cause of current AMS. No Mass or CVA on MRI. (5) Hypertension Current Visit: Yes Status: Acute Code(s): I10 - ESSENTIAL (PRIMARY) HYPERTENSION SNOMED Code(s): 35513842 Comment: BP stable (6) Full code status Current Visit: Yes Status: Acute Code(s): Z78.9 - OTHER SPECIFIED HEALTH STATUS SNOMED Code(s): 916991845 Status and Disposition: Remain inpatient.
[2017-11-12] MEDS: Cyclobenzaprine TAB* 10 MG PO PRN ×2 (14:27→20:39)
[2017-11-12] MEDS ORDERED: NS 0.9% 1000 ML* 1,000 ML IV SCH (18:54)
[2017-11-12] MEDS: Acetaminophen TAB* 325 MG PO PRN (20:46)
[2017-11-13] MEDS: Insulin LISPRO* 1 UNITS UNIT SUBCUT SCH ×5 (00:32→23:56)
--- NOTE | 2017-11-13 01:00 | CONS ---
C: Dr. Deric Tate; Dr. Thorne * CONSULTATION REPORT: DATE OF CONSULT: 11/12/17 HISTORY OF PRESENT ILLNESS: The patient is a 77-year-old female who was admitted from the detention with possible fractured hip. On this admission, she was identified to have some lymphadenopathy and Dr. Thorne was consulted. He would like to have a fine-needle aspiration biopsy to assess the nature of her underlying tumor, then has contacted me regarding possible fine-needle aspiration biopsy. I have examined the patient and reviewed her CT scan and she has about a 2 cm right groin node, which is readily palpable and about a 4 cm left axillary node , which is readily palpable. I discussed it with the patient and discussed it with her daughter, Sara Quiroz, and the patient is not really able to comprehend the procedure, but after discussion with her daughter, it was decided that fine-needle aspiration biopsy would be carried out to diagnose her lymphadenopathy. PROCEDURE: Therefore, the left axilla was prepped with alcohol and a 25-gauge needle was used to aspirate the mass with multiple passes. It is bloody tap. The needle was passed off to the pathologist for examination. They would like a little bit more tissue, so the right groin is addressed and again a 25-gauge needle used to aspirate the mass. Again, it is little bit of a bloody aspirate and again the syringe was passed off to the pathologist. The pathologist has determined that there is adequate material. A bandage was placed in each case. The patient tolerated this well. There was minimal bleeding involved. Specimens are from the left axillary lymph node and the right groin lymph node and will be processed directly by Pathology. [id number]/[facility] #: [id number] [facility] HOSPITALShakira
[2017-11-13] MEDS: HYDROmorphone INJ* 0.5 MG/0.5 ML SYRINGE IV PRN (03:22)
[2017-11-13] MEDS: oxyCODONE/Acetamin 5/325 MG* TAB PO PRN ×3 (04:22→20:14)
--- NOTE | 2017-11-13 05:42 | CONS ---
CC: Marty Silva MD at [facility]; Dr. Lund of Orthopedics * MEDICAL ONCOLOGY CONSULTATION NOTE: DATE OF CONSULT: 11/12/17 REASON FOR CONSULTATION: Imaging with evidence for widespread metastatic malignancy. HISTORY OF PRESENT ILLNESS: Merna Torres is a 77-year-old female whose history is obtained via review of the records at [facility] admission H and P from [place] dated 09/23/17, and review of the chart. She is a 77-year-old female who per Dr. Silva's note of 09/23/17 has been very noncompliant with suggestions for improving her medical care. She had a longstanding history of hypertension, diabetes, COPD, and TIA in the past. Per conversation with her daughter, she had been living independently until August 2017. At that point, she had difficulty with mobility when being helped to restore through the office for the aging. She also had become much more confused. At that time, per her daughter she still was verbal, but was much more confused. There was a question by Dr. Silva whether she might have suffered a TIA or RIND and following a brief hospitalization at [facility] was admitted to the [facility]. CT scan of the brain had been unremarkable at that time. [facility] until 11/10/17. Unfortunately, she fell on a couple of occasions while at [facility]. Films from 11/09/17 revealed a displaced right femoral fracture and the patient was clearly in severe pain subsequent to this. She was transferred to [facility] for anticipation of orthopedic intervention for a fractured hip. Since admission to the hospital, imaging has been obtained, which has revealed on CT scan of the chest, abdomen, and pelvis, large left axillary adenopathy measuring 3.2 x 5.2 cm. No other adenopathy of the chest. No significant abnormalities are noted in the lungs. There is a large mass in the right trapezius muscle at least partially tumor, although some of this may be hematoma with additional tumor involved in the right infraspinatus and teres minor muscles. There are sclerotic lesions in the T5 and T10 vertebral bodies as well as the left 3rd rib laterally. The abdomen revealed significant retroperitoneal adenopathy measuring up to 6.4 cm along with a mass in the right psoas muscle, right inguinal adenopathy and a right adrenal mass measuring 3.1 x 2.1 cm. In addition, there is a right femoral neck fracture with an osteoblastic lesion in the right ischial tuberosity. PAST MEDICAL HISTORY: 1. Hypertension. 2. Diabetes mellitus. 3. COPD. 4. Dementia status post distant TIA and question of more recent TIA. 5. Status post tubal ligation. 6. Status post cholecystectomy. MEDICATIONS: At the time of admission include: 1. Norvasc 10 mg daily. 2. Insulin including both regular and Humulin. 3. Toradol 15 mg p.r.n. 4. Melatonin 1 mg at h.s. 5. Metformin 750 mg daily. 6. [place] 5/325 q.4 hours p.r.n. pain as well as other p.r.n. medications and bowel meds. SOCIAL HISTORY: The patient has 2 daughters who live in [place] who have been in followup with her care. Sara, [phone] and Tanisha, [phone]. The patient is a smoker for many decades and per Dr. Silva's note was still smoking up until the time of admission. Alcohol, occasional. REVIEW OF SYSTEMS: Unobtainable due to severe dementia and minimal interaction at the time of my consultation. PHYSICAL EXAMINATION: A 77-year-old female, lying in bed with right arm bent 90 degrees at the elbow and complaining of severe pain on any movement of the right arm or shoulder. Right leg is rotated. The patient answered several questions, yes or no, seemingly appropriately, but will not give me her name or in any other ways interact or speak other than to wave when I entered the room. Vital Signs: Blood pressure 151/41, pulse 75. Afebrile. HEENT: PERRL, EOMI. No erythema or exudates. No palpable cervical, supraclavicular adenopathy. Lungs: Clear. Heart: Regular rate and rhythm without murmurs, rubs, or gallops. Breasts: No masses or discharge bilaterally. Abdomen: Soft , nontender without masses or organomegaly. Lymph node exam: Large left axillary adenopathy. Small right inguinal adenopathy. No other adenopathy is palpable. Extremities: No clubbing, cyanosis, or edema. Right shoulder and right leg as discussed above. Neurologic Exam: The patient is unable to give me information as to orientation and is quite lethargic. LABORATORY DATA: Laboratory studies have shown essentially normal CBC with only mild anemia with H and H of 36/11.8. Chemistry studies with normal renal function, elevated alk phos at 229. Other LFTs are essentially normal. DIAGNOSTIC STUDIES: Imaging of the brain includes both the CTA and an MRI. MRI of the brain with no evidence for ischemia or mass. There is relative encephalomalacia related to a left MCA distribution infarct. In addition, mild atrophy is noted. The CTA shows no significant carotid artery stenosis and no other major vascular abnormalities. Since admission to the hospital, she has been seen by her daughter who I spoke to at the time of this consultation. She reports that she is much more confused , much less verbal, and has clearly changed even over the past 1 to 2 months. 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 She clearly has declined dramatically over the past 2 months per notes from Dr. Silva and from information obtained from her daughter. It is likely that given her current situation that she will be unable to have any therapy, and it is likely widespread malignancy. In that situation, pain control will be paramount. In fact at the time of our exam, she is complaining of more pain in the right shoulder region than she is at the right hip where the fracture has been sustained. I discussed the situation with the daughter who is in agreement with a fine-needle aspiration of left axillary adenopathy. If this shows malignancy, it is likely that we will not proceed to repair of the right hip fracture. This has been discussed with Orthopedics and also with the primary care team. Dr. Tam is unavailable today, so Dr. Tate has been asked to do a fine-needle aspiration in conjunction with pathology. Once pathology is available, further recommendations will be made to her daughter, Sara, who understands how serious her mother's situation is. [id number]/[facility] #: [id number] [facility]
[2017-11-13 05:49] LABS: ABS Basophils 0 10^3/ul (0-0.2); ABS Eosinophils 0 10^3/ul (0-0.6); ABS Lymphocytes 0.3 10^3/ul (1.0-4.8); ABS Monocytes 0.5 10^3/ul (0-0.8); ABS Neutrophils 10.2 10^3/ul (1.5-7.7); ABS Nucleated RBC 0 10^3/ul; Eosinophil % 0.4 % (0-6); Hematocrit 35 % (35-47); Hemoglobin 11.2 g/dl (12.0-16.0); Mean Corpuscular HGB Conc 33 g/dl (31-36); Mean Corpuscular Hemoglobin 28 pg (27-31); Mean Corpuscular Volume 85 fL (80-97); Mean Platelet Volume 7.9 um3 (7.4-10.4); Nucleated Red Blood Cells % 0; Platelet Count 288 10^3/ul (150-450); Red Blood Count 4.07 10^6/ul (4.00-5.40); Red Cell Distribution Width 16 % (10.5-15); White Blood Count 11.2 10^3/ul (3.5-10.8)
[2017-11-13 06:08] LABS: EGFR Non-African American 192.7 (>60)
[2017-11-13] MEDS: Cyclobenzaprine TAB* 10 MG PO PRN (09:35)
[2017-11-13] MEDS: amLODIPine TAB* 5 MG PO SCH (09:46)
[2017-11-13] MEDS: Docusate CAP* 100 MG PO SCH ×2 (09:46→20:29)
--- NOTE | 2017-11-13 10:04 | PN ---
Progress Note - Progress Note Date of Service: 11/13/17 SOAP: Subjective: Pt is lying comfortably in bed. Nonverbal to questions asked Objective: PE- 77 y/o WDWN F lying comfortably in bed RLE- skin intact, no warmth or erythema, frog leg position, calf is soft, + 2 PT pulse. She cries out whenever she is touched regardless of where on the lower extremity this is, it is not believed a result of pain. Vital Signs Temp 97.7 F 11/13/17 07:31 Pulse 60 11/13/17 07:31 Resp 14 11/13/17 09:35 BP 123/38 11/13/17 07:31 Pulse Ox 97 11/13/17 07:31 Intake & Output 11/12/17 11/13/17 11/13/17 18:59 06:59 18:59 Intake Total 1049 1190 Output Total 235 500 Balance 814 690 Intake: IV Fluids 989 980 NS (0.9%) 989 980 Oral 60 210 Output: Urine 35 [place] 200 500 Assessment: Right femoral neck fx Plan: NWB RLE Yesterday it was discussed with hospitalist and Dr. Thorne, high suspicion for cancer with metastasis and a pathological fx, Per Dr. Thorne will likely get fine needle aspiration of axillary mass to further investigate. Pt will likely need palliative care/hospice. If the family would like surgery the patient would likely have to be transferred for a hemiarthroplasty in the presence of a pathological fracture Cont pain control Orthopedics will cont to follow
--- NOTE | 2017-11-13 10:19 | PN ---
Subjective Date of Service: 11/13/17 Interval History: Patient is able to state only that she has no pain. A/Ox1 but does not answer questions, only stares when asked a question. Follows basic commands. Follows people around the room with her eyes. Screams out occasionally in apparent pain with no obvious provocation. Family History: Unchanged from Admission Social History: Unchanged from Admission Past Medical History: Unchanged from Admission Objective Active Medications: Acetaminophen (Tylenol Tab*) 650 mg PO Q4H PRN PRN Reason: FEVER/PAIN Last Admin: 11/12/17 20:46 Dose: 650 mg Al Hydrox/Mg Hydrox/Simethicone (Maalox Plus*) 30 ml PO Q6H PRN PRN Reason: INDIGESTION Amlodipine Besylate (Norvasc Tab*) 10 mg PO DAILY [facility] Last Admin: 11/13/17 09:46 Dose: 10 mg Cyclobenzaprine HCl (Flexeril Tab*) 5 mg PO TID PRN PRN Reason: SPASMS Last Admin: 11/13/17 09:35 Dose: 5 mg Dextrose (D50w Syringe 50 Ml*) 12.5 gm IV PUSH .FOR FS < 60 - SS PRN PRN Reason: FS < 60 Diazepam (Valium Inj (Nf)) 2 mg IV Q8H PRN PRN Reason: Spasm Docusate Sodium (Colace Cap*) 100 mg PO BID [facility] Last Admin: 11/13/17 09:46 Dose: Not Given Hydromorphone HCl (Dilaudid Inj*) 1 mg IV Q3H PRN PRN Reason: PAIN Last Admin: 11/13/17 03:22 Dose: 1 mg Sodium Chloride (Ns 0.9% 1000 Ml*) 1,000 mls @ 125 mls/hr IV PER RATE [facility] Last Admin: 11/13/17 04:22 Dose: 125 mls/hr Insulin Human Lispro (Humalog*) 0 units SUBCUT 0000,0600,1200,1800 [facility]; Protocol Last Admin: 11/13/17 05:55 Dose: Not Given Ketorolac Tromethamine (Toradol Inj*) 15 mg IV PUSH Q6H PRN PRN Reason: PAIN Last Admin: 11/12/17 11:40 Dose: 15 mg Magnesium Hydroxide (Milk Of Magnesia Liq*) 30 ml PO Q4H PRN PRN Reason: CONSTIPATION Ondansetron HCl (Zofran Inj*) 4 mg IV Q4H PRN PRN Reason: NAUSEA/VOMITING Oxycodone/Acetaminophen (Percocet 5/325 Tab*) 1 tab PO Q4H PRN PRN Reason: Pain Last Admin: 11/13/17 04:22 Dose: 1 tab Vital Signs - 8 hr 11/13/17 11/13/17 11/13/17 03:22 03:46 04:22 Temperature 98.8 F Pulse Rate 78 Respiratory 18 20 20 Rate Blood Pressure 143/41 (mmHg) O2 Sat by Pulse 98 Oximetry 11/13/17 11/13/17 11/13/17 05:18 06:37 07:31 Temperature 97.7 F Pulse Rate 60 Respiratory 18 18 16 Rate Blood Pressure 123/38 (mmHg) O2 Sat by Pulse 97 Oximetry 11/13/17 09:35 Temperature Pulse Rate Respiratory 14 Rate Blood Pressure (mmHg) O2 Sat by Pulse Oximetry Oxygen Devices in Use Now: Nasal Cannula Appearance: Patient is a 77yo female who appears stated age and is sitting in the bed in mild distress from apparent pain. Eyes: No Scleral Icterus, PERRLA Ears/Nose/Mouth/Throat: NL Teeth, Lips, Gums, Clear Oropharnyx, Mucous Membranes Moist Neck: NL Appearance and Movements; NL JVP, Trachea Midline Respiratory: Symmetrical Chest Expansion and Respiratory Effort, Clear to Auscultation Cardiovascular: NL Sounds; No Murmurs; No JVD, RRR, No Edema Abdominal: NL Sounds; No Tenderness; No Distention, No Hepatosplenomegaly Lymphatic: No Cervical Adenopathy, - - Stable large, diffuse adenopathy. Extremities: No Edema, No Clubbing, Cyanosis, - - Right leg flexed at the knee and abducted. No bovious deformity or hematoma. Skin: No Rash or Ulcers, No Nodules or Sclerosis Neurological: - - CN II-XII intact. Result Diagrams: 11/13/17 05:28 11/13/17 05:28 Microbiology and Other Data: Microbiology 11/10/17 15:40 Nasal Screen MRSA (PCR) - Final Nasal Mrsa Not Detected Diagnostic Imaging: Patient Name: DAVE THOMPSON Medical Record#: [id number] Ordering Physician: Gerard Lund MD Acct.#: [id number] : 1940 Age: 77 Sex: F Location: SURGICAL STAY UNIT Exam Date: 11/10/172106 ADM Status: ADM IN Order Information: CT PELVIS W/O Accession Number: [id number] CPT: 33120 INDICATION: Traumatic fracture right hip. COMPARISON: Comparison is made with a prior x-ray study of the right femur and pelvis from November 10, 2017. TECHNIQUE: Contiguous axial sections were obtained through the pelvis without intravenous or oral contrast. Images were reconstructed in the coronal and sagittal planes. FINDINGS: The bones appear osteoporotic. There is a subcapital right femoral neck fracture. The fracture fragments are overriding. There is anterior displacement of the distal fragment relative the proximal fragment and rotation of the femur. There is varus angulation. There is nonspecific sclerotic change in the ischial tuberosity. 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 There is marked enlargement of the left psoas and iliacus muscles consistent with a mass, bulky adenopathy or hematoma. The visualized portion of the small bowel and colon appear nondistended. There is a catheter within the urinary bladder. No free intraperitoneal air or fluid is seen. IMPRESSION: 1. DISPLACED ANGULATED RIGHT SUBCAPITAL FEMORAL NECK FRACTURE. 2. SCLEROTIC LESION WITHIN THE RIGHT ISCHIAL TUBEROSITY. 3. ENLARGEMENT OF THE LEFT PSOAS AND ILIACUS MUSCLES MOST CONSISTENT WITH A MASS , BULKY ADENOPATHY OR HEMATOMA. RECOMMEND A CT OF THE CHEST, ABDOMEN AND PELVIS WITH CONTRAST FOR FURTHER EVALUATION. <Electronically signed by Juan Manuel Linda MD in [place]> 11/11/17714 Dictated By: Juan Manuel Linda MD Dictated Date/Time: 11/11/17714 Transcribed Date/Time: 11/11/17705 Copy to: CTA HEAD and NECK Conclusion: [facility] Patient Name:DAVE THOMPSON MR: [id number] : 1940 LYMPH NODES: There is biapical emphysematous change. BONES AND SOFT TISSUES: No bone or soft tissue abnormalities are noted. CTA HEAD: INTRACRANIAL CIRCULATION: There is no aneurysm, vascular malformation, occlusion , or stenosis of the visualized intracranial circulation. The anterior communicating artery complex is clear. Bilateral posterior communicating arteries are identified. VENOUS CIRCULATION: The venous system is unremarkable. PERFUSION: There is no obvious parenchymal perfusion deficit. HEMORRHAGE/INFARCT: There is no hemorrhage or acute infarct. MASSES/SHIFT: There is no mass or shift. EXTRA-AXIAL SPACES: There are no extra-axial fluid collections. SULCI AND VENTRICLES: The sulci and ventricles are normal in size and position for the patient's stated age. CEREBRUM: There is hypoattenuation of the periventricular and subcortical white matter. BRAINSTEM: There are no focal parenchymal abnormalities. CEREBELLUM: There are no focal parenchymal abnormalities. PARANASAL SINUSES: The paranasal sinuses are clear. ORBITS: The orbits are unremarkable. BONES AND SOFT TISSUE: Degenerative changes are noted of the spine. There are multiple lobulated masses of the right shoulder musculature, and evaluated on the current examination. OTHER: There is no abnormal enhancement. IMPRESSION: 1. NO INTERNAL CAROTID ARTERY STENOSIS BY NASCET CRITERIA. 2. NO ANEURYSM, VASCULAR MALFORMATION, OCCLUSION, OR STENOSIS OF THE VISUALIZED INTRACRANIAL CIRCULATION.. 3. ATHEROSCLEROSIS. 4. PROXIMAL VESSEL ISCHEMIC CHANGE. 5. NO ACUTE INTRACRANIAL PATHOLOGY. 6. MULTIPLE LOBULATED MASSES OF THE MUSCULATURE OF THE RIGHT SHOULDER GIRDLE, EVALUATED ON THE CURRENT EXAMINATION SUSPICIOUS FOR SARCOMA VERSUS METASTATIC DISEASE. MRI BRAIN Patient Name: DAVE THOMPSON Medical Record#: [id number] Ordering Physician: Nany Short NP Acct.#: [id number] : 1940 Age: 77 Sex: F Location: SURGICAL STAY UNIT Exam Date: 11/11/17 1507 ADM Status: ADM IN Order Information: MRI BRAIN W/O Accession Number: [id number] CPT: 93304 Indication: Worsening confusion and weakness. Previous CVAs with residual RIGHT- sided weakness. Comparison: CT and CTA head neck exams of the same date. Technique: Qwikia 1.5 Tatiana SE617A with GEM suite. MRI brain without contrast. Report: Diffusion series is negative for acute or subacute ischemia. Susceptibility series is negative for stigmata of hemosiderin deposition to indicate previous hemorrhage. Mild prominence of the cerebral sulci and cerebellar fissures collecting atrophy. Proportional ventricular enlargement. Patent basal cisterns. Disproportionate mild volume loss and T2 hyperintense ischemic gliosis at the LEFT middle cerebral artery distribution of the frontal and parietal lobes consistent with sequela of previous infarct. Additional few nonspecific T2 hyperintense foci within the cerebral white matter without mass effect. No extra-axial fluid collection evident. Preserved major intracranial flow- voids. Unremarkable orbital contents. No suspicious calvarial or skull base lesions evident. Mucous retention cyst or polyp at the inferior LEFT maxillary sinus. Unremarkable scalp. IMPRESSION: #. Negative for stigmata of acute or subacute ischemia. #. Relative mild encephalomalacia related to old LEFT MCA distribution infarct involving the posterior LEFT frontal lobe and parietal lobe. #. Mild diffuse atrophy and stigmata of chronic small vessel ischemic disease. <Electronically signed by Surinder Sung MD in [place]> 11/11/17 1632 Dictated By: Surinder Sung MD Dictated Date/Time: 11/11/17 1632 Transcribed Date/Time: 11/11/17 1623 Copy to: CARDIAC ECHO Conclusions There is normal left ventricular systolic function. The estimated ejection fraction is 50-55%. Global left ventricular wall motion and contractility are within normal limits. Mild concentric left ventricular hypertrophy is observed. There is an E to A reversal in the mitral valve flow pattern suggestive of diastolic dysfunction. There is mild to moderate aortic regurgitation. There is mild to moderate mitral regurgitation. There is mild to moderate tricuspid regurgitation. There is evidence of mild to moderate pulmonary hypertension. There is no prior echocardiogram available to compare with at this time. Assess/Plan/Problems-Billing Assessment: This is a 77 year old female patient transferred from a [facility] for femur fracture 2/2 unwitnessed fall. PMHx sig for COPD, previous CVAs, DM and HTN that presents with a right sided displaced subcapital femoral neck fracture and multiple masses concerning for malignancy. - Patient Problems (1) Neoplasm Current Visit: Yes Status: Acute Code(s): D49.9 - NEOPLASM OF UNSPECIFIED BEHAVIOR OF UNSPECIFIED SITE SNOMED Code(s): 38639462 Comment: CTA of the neck visualized local mass in the muscularture of the right shouder Given the mass in the psoas, this is highly suspicious for metastatic disease/ sarcoma? CT chest, abdomen and pelvis with contrast shows numerous masses. Appreciate oncology input. FNA of left axillary mass pending. Will likely have no curative treatment options if metastatic cancer confirmed. (2) COPD (chronic obstructive pulmonary disease) Current Visit: Yes Status: Acute Code(s): J44.9 - CHRONIC OBSTRUCTIVE PULMONARY DISEASE, UNSPECIFIED SNOMED Code(s): 82459615 Comment: CXR with COPD changes Allergy to albuterol per record Continue supportive O2 No signs of exacerbation. (3) Femoral neck fracture Current Visit: Yes Status: Acute Code(s): S72.009A - FRACTURE OF UNSP PART OF NECK OF UNSP FEMUR, INIT SNOMED Code(s): 8969844 Comment: Unwitnessed fall, right side fracture CT pelvis is showing psoas mass on the left/contralateral side to the fracture and a sclerotic lesion of the ischial tuberosity Concern for pathologic fracture Patient is NOT medically optimized for surgery. Discussed with daughter and she is not insistant on going forward with surgery Will need to be transferred if surgery indicated. Does not appear to be main source of patient discomfort. (4) History of CVA (cerebrovascular accident) Current Visit: Yes Status: Acute Code(s): Z86.73 - PRSNL HX OF TIA (TIA), AND CEREB INFRC W/O RESID DEFICITS SNOMED Code(s): 402029922 Comment: Per patient's daughter she is sometimes forgetful, however, she can usually converse and is appropriate Unclear cause of current AMS. No Mass or CVA on MRI. (5) Hypertension Current Visit: Yes Status: Acute Code(s): I10 - ESSENTIAL (PRIMARY) HYPERTENSION SNOMED Code(s): 61196158 Comment: BP stable (6) Full code status Current Visit: Yes Status: Acute Code(s): Z78.9 - OTHER SPECIFIED HEALTH STATUS SNOMED Code(s): 253585483 Status and Disposition: Remain inpatient.
[2017-11-13] MEDS ORDERED: NS 0.9% 1000 ML* 1,000 ML IV ONE (15:10)
[2017-11-13] MEDS: NS 0.9% 1000 ML* 1,000 ML IV SCH (20:13)
[2017-11-14] MEDS: oxyCODONE/Acetamin 5/325 MG* TAB PO PRN ×4 (02:30→20:46)
[2017-11-14] MEDS: Insulin LISPRO* 1 UNITS UNIT SUBCUT SCH ×4 (05:24→20:55)
[2017-11-14] MEDS: NS 0.9% 1000 ML* 1,000 ML IV SCH ×3 (06:01→22:41)
[2017-11-14] MEDS: Cyclobenzaprine TAB* 10 MG PO PRN ×3 (06:04→20:45)
[2017-11-14] MEDS: HYDROmorphone INJ* 0.5 MG/0.5 ML SYRINGE IV PRN (06:29)
[2017-11-14] MEDS: Docusate CAP* 100 MG PO SCH ×2 (08:58→20:45)
[2017-11-14] MEDS: Magnesium Hydroxide LIQ* 30 ML UDC PO PRN ×2 (08:58→20:45)
[2017-11-14] MEDS: amLODIPine TAB* 5 MG PO SCH (08:58)
--- NOTE | 2017-11-14 09:34 | PN ---
Progress Note - Progress Note Date of Service: 11/14/17 SOAP: Subjective: Pt is lying comfortably in bed. Nonverbal to questions asked Objective: PE- 77 y/o WDWN F lying comfortably in bed RLE- skin intact, no warmth or erythema, frog leg position, calf is soft, + 2 PT pulse. She cries out whenever she is touched regardless of where on the lower extremity this is, it is not believed a result of pain. The pt does have a small area of redness over the lateral malleolus. Vital Signs Temp 98.5 F 11/14/17 03:14 Pulse 72 11/14/17 03:14 Resp 14 11/14/17 08:14 BP 130/51 11/14/17 03:14 Pulse Ox 97 11/14/17 03:14 Intake & Output 11/13/17 11/14/17 11/14/17 18:59 06:59 18:59 Intake Total 1053 980 Output Total 175 400 Balance 878 580 Intake: IV Fluids 978 980 NS (0.9%) 978 980 Oral 75 Output: [place] 175 400 Assessment: Right femoral neck fx Plan: NWB RLE There is a high suspicion for cancer with metastasis and a pathological fx, Per Dr. Thorne pending resuts of fine needle aspiration of axillary mass to further investigate. Pt will likely need palliative care/hospice. If the family would like surgery the patient would likely have to be transferred for a hemiarthroplasty in the presence of a pathological fracture Cont pain control Orthopedics will cont to follow Soft boot to help with redness over the lateral malleolus on the right ankle
[2017-11-14] MEDS: Ketorolac INJ* 15 MG/ML 1 ML VIAL IV PUSH PRN (12:19)
--- NOTE | 2017-11-14 12:43 | PN ---
Subjective Date of Service: 11/14/17 Interval History: Patient minimally responsive to questioning. Will follow around room with eyes, and denies pain when asked, but will not respond to other questioning. Unable to Complete ROS. Able to eat small amount of jello with lunch. Family History: Unchanged from Admission Social History: Unchanged from Admission Past Medical History: Unchanged from Admission Objective Active Medications: Acetaminophen (Tylenol Tab*) 650 mg PO Q4H PRN PRN Reason: FEVER/PAIN Last Admin: 11/12/17 20:46 Dose: 650 mg Al Hydrox/Mg Hydrox/Simethicone (Maalox Plus*) 30 ml PO Q6H PRN PRN Reason: INDIGESTION Amlodipine Besylate (Norvasc Tab*) 10 mg PO DAILY [facility] Last Admin: 11/14/17 08:58 Dose: 10 mg Cyclobenzaprine HCl (Flexeril Tab*) 5 mg PO TID PRN PRN Reason: SPASMS Last Admin: 11/14/17 06:04 Dose: 5 mg Dextrose (D50w Syringe 50 Ml*) 12.5 gm IV PUSH .FOR FS < 60 - SS PRN PRN Reason: FS < 60 Diazepam (Valium Inj (Nf)) 2 mg IV Q8H PRN PRN Reason: Spasm Docusate Sodium (Colace Cap*) 100 mg PO BID [facility] Last Admin: 11/14/17 08:58 Dose: 100 mg Hydromorphone HCl (Dilaudid Inj*) 1 mg IV Q3H PRN PRN Reason: PAIN Last Admin: 11/14/17 06:29 Dose: 1 mg Sodium Chloride (Ns 0.9% 1000 Ml*) 1,000 mls @ 125 mls/hr IV PER RATE [facility] Insulin Human Lispro (Humalog*) 0 units SUBCUT 0000,0600,1200,1800 [facility]; Protocol Last Admin: 11/14/17 12:17 Dose: 1 unit Magnesium Hydroxide (Milk Of Magnesia Liq*) 30 ml PO Q4H PRN PRN Reason: CONSTIPATION Last Admin: 11/14/17 08:58 Dose: 30 ml Ondansetron HCl (Zofran Inj*) 4 mg IV Q4H PRN PRN Reason: NAUSEA/VOMITING Oxycodone/Acetaminophen (Percocet 5/325 Tab*) 1 tab PO Q4H PRN PRN Reason: Pain Last Admin: 11/14/17 12:18 Dose: 1 tab Vital Signs - 8 hr 11/14/17 11/14/17 11/14/17 06:04 06:29 07:30 Temperature Pulse Rate Respiratory 18 18 15 Rate Blood Pressure (mmHg) O2 Sat by Pulse Oximetry 11/14/17 11/14/17 11/14/17 07:34 08:13 08:14 Temperature 96.9 F Pulse Rate 70 Respiratory 15 14 14 Rate Blood Pressure 128/45 (mmHg) O2 Sat by Pulse 99 Oximetry 11/14/17 11/14/17 11:48 12:18 Temperature 98.4 F Pulse Rate 73 Respiratory 18 15 Rate Blood Pressure 136/51 (mmHg) O2 Sat by Pulse 98 Oximetry Oxygen Devices in Use Now: Nasal Cannula Appearance: Patient is a 77yo female who appears stated age and is sitting in the bed in NAD. Eyes: No Scleral Icterus, PERRLA Ears/Nose/Mouth/Throat: NL Teeth, Lips, Gums, Clear Oropharnyx, Mucous Membranes Moist Neck: NL Appearance and Movements; NL JVP, Trachea Midline Respiratory: Symmetrical Chest Expansion and Respiratory Effort, Clear to Auscultation Cardiovascular: NL Sounds; No Murmurs; No JVD, RRR, No Edema Abdominal: NL Sounds; No Tenderness; No Distention, No Hepatosplenomegaly Lymphatic: No Cervical Adenopathy, - - Stable masses. Extremities: No Edema, No Clubbing, Cyanosis, - - Bent and Abducted leg on right side. Skin: No Rash or Ulcers, No Nodules or Sclerosis Neurological: - - CN II-XII intact. Result Diagrams: 11/13/17 05:28 11/13/17 05:28 Microbiology and Other Data: Microbiology 11/10/17 15:40 Nasal Screen MRSA (PCR) - Final Nasal Mrsa Not Detected Diagnostic Imaging: Patient Name: DAVE THOMPSON Medical Record#: [id number] Ordering Physician: Gerard Lund MD Acct.#: [id number] : 1940 Age: 77 Sex: F Location: SURGICAL STAY UNIT Exam Date: 11/10/172106 ADM Status: ADM IN Order Information: CT PELVIS W/O Accession Number: [id number] CPT: 83910 INDICATION: Traumatic fracture right hip. COMPARISON: Comparison is made with a prior x-ray study of the right femur and pelvis from November 10, 2017. TECHNIQUE: Contiguous axial sections were obtained through the pelvis without intravenous or oral contrast. Images were reconstructed in the coronal and sagittal planes. FINDINGS: The bones appear osteoporotic. There is a subcapital right femoral neck fracture. The fracture fragments are overriding. There is anterior displacement of the distal fragment relative the proximal fragment and rotation of the femur. There is varus angulation. There is nonspecific sclerotic change in the ischial tuberosity. 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 There is marked enlargement of the left psoas and iliacus muscles consistent with a mass, bulky adenopathy or hematoma. The visualized portion of the small bowel and colon appear nondistended. There is a catheter within the urinary bladder. No free intraperitoneal air or fluid is seen. IMPRESSION: 1. DISPLACED ANGULATED RIGHT SUBCAPITAL FEMORAL NECK FRACTURE. 2. SCLEROTIC LESION WITHIN THE RIGHT ISCHIAL TUBEROSITY. 3. ENLARGEMENT OF THE LEFT PSOAS AND ILIACUS MUSCLES MOST CONSISTENT WITH A MASS , BULKY ADENOPATHY OR HEMATOMA. RECOMMEND A CT OF THE CHEST, ABDOMEN AND PELVIS WITH CONTRAST FOR FURTHER EVALUATION. <Electronically signed by Juan Manuel Linda MD in [place]> 11/11/17714 Dictated By: Juan Manuel Linda MD Dictated Date/Time: 11/11/17714 Transcribed Date/Time: 11/11/17705 Copy to: CTA HEAD and NECK Conclusion: [facility] Patient Name:DAVE THOMPSON MR: [id number] : 1940 LYMPH NODES: There is biapical emphysematous change. BONES AND SOFT TISSUES: No bone or soft tissue abnormalities are noted. CTA HEAD: INTRACRANIAL CIRCULATION: There is no aneurysm, vascular malformation, occlusion , or stenosis of the visualized intracranial circulation. The anterior communicating artery complex is clear. Bilateral posterior communicating arteries are identified. VENOUS CIRCULATION: The venous system is unremarkable. PERFUSION: There is no obvious parenchymal perfusion deficit. HEMORRHAGE/INFARCT: There is no hemorrhage or acute infarct. MASSES/SHIFT: There is no mass or shift. EXTRA-AXIAL SPACES: There are no extra-axial fluid collections. SULCI AND VENTRICLES: The sulci and ventricles are normal in size and position for the patient's stated age. CEREBRUM: There is hypoattenuation of the periventricular and subcortical white matter. BRAINSTEM: There are no focal parenchymal abnormalities. CEREBELLUM: There are no focal parenchymal abnormalities. PARANASAL SINUSES: The paranasal sinuses are clear. ORBITS: The orbits are unremarkable. BONES AND SOFT TISSUE: Degenerative changes are noted of the spine. There are multiple lobulated masses of the right shoulder musculature, and evaluated on the current examination. OTHER: There is no abnormal enhancement. IMPRESSION: 1. NO INTERNAL CAROTID ARTERY STENOSIS BY NASCET CRITERIA. 2. NO ANEURYSM, VASCULAR MALFORMATION, OCCLUSION, OR STENOSIS OF THE VISUALIZED INTRACRANIAL CIRCULATION.. 3. ATHEROSCLEROSIS. 4. PROXIMAL VESSEL ISCHEMIC CHANGE. 5. NO ACUTE INTRACRANIAL PATHOLOGY. 6. MULTIPLE LOBULATED MASSES OF THE MUSCULATURE OF THE RIGHT SHOULDER GIRDLE, EVALUATED ON THE CURRENT EXAMINATION SUSPICIOUS FOR SARCOMA VERSUS METASTATIC DISEASE. MRI BRAIN Patient Name: DAVE THOMPSON Medical Record#: [id number] Ordering Physician: Nany Short NP Acct.#: [id number] : 1940 Age: 77 Sex: F Location: SURGICAL STAY UNIT Exam Date: 11/11/17 1507 ADM Status: ADM IN Order Information: MRI BRAIN W/O Accession Number: [id number] CPT: 83022 Indication: Worsening confusion and weakness. Previous CVAs with residual RIGHT- sided weakness. Comparison: CT and CTA head neck exams of the same date. Technique: [place] 1.5 [place] IC896O with BINFORD suite. MRI brain without contrast. Report: Diffusion series is negative for acute or subacute ischemia. Susceptibility series is negative for stigmata of hemosiderin deposition to indicate previous hemorrhage. Mild prominence of the cerebral sulci and cerebellar fissures collecting atrophy. Proportional ventricular enlargement. Patent basal cisterns. Disproportionate mild volume loss and T2 hyperintense ischemic gliosis at the LEFT middle cerebral artery distribution of the frontal and parietal lobes consistent with sequela of previous infarct. Additional few nonspecific T2 hyperintense foci within the cerebral white matter without mass effect. No extra-axial fluid collection evident. Preserved major intracranial flow- voids. Unremarkable orbital contents. No suspicious calvarial or skull base lesions evident. Mucous retention cyst or polyp at the inferior LEFT maxillary sinus. Unremarkable scalp. IMPRESSION: #. Negative for stigmata of acute or subacute ischemia. #. Relative mild encephalomalacia related to old LEFT MCA distribution infarct involving the posterior LEFT frontal lobe and parietal lobe. #. Mild diffuse atrophy and stigmata of chronic small vessel ischemic disease. <Electronically signed by Surinder Sung MD in [place]> 11/11/17 1632 Dictated By: Surinder Sung MD Dictated Date/Time: 11/11/17 1632 Transcribed Date/Time: 11/11/17 1623 Copy to: CARDIAC ECHO Conclusions There is normal left ventricular systolic function. The estimated ejection fraction is 50-55%. Global left ventricular wall motion and contractility are within normal limits. Mild concentric left ventricular hypertrophy is observed. There is an E to A reversal in the mitral valve flow pattern suggestive of diastolic dysfunction. There is mild to moderate aortic regurgitation. There is mild to moderate mitral regurgitation. There is mild to moderate tricuspid regurgitation. There is evidence of mild to moderate pulmonary hypertension. There is no prior echocardiogram available to compare with at this time. Assess/Plan/Problems-Billing Assessment: This is a 77 year old female patient [facility] for femur fracture 2/2 unwitnessed fall. PMHx sig for COPD, previous CVAs, DM and HTN that presents with a right sided displaced subcapital femoral neck fracture and multiple masses concerning for malignancy. - Patient Problems (1) Neoplasm Current Visit: Yes Status: Acute Code(s): D49.9 - NEOPLASM OF UNSPECIFIED BEHAVIOR OF UNSPECIFIED SITE SNOMED Code(s): 53835601 Comment: CTA of the neck visualized local mass in the muscularture of the right shouder Given the mass in the psoas, this is highly suspicious for metastatic disease/ sarcoma? CT chest, abdomen and pelvis with contrast shows numerous masses. Appreciate oncology input. FNA of left axillary mass pending. Will likely have no curative treatment options if metastatic cancer confirmed. (2) COPD (chronic obstructive pulmonary disease) Current Visit: Yes Status: Acute Code(s): J44.9 - CHRONIC OBSTRUCTIVE PULMONARY DISEASE, UNSPECIFIED SNOMED Code(s): 29752195 Comment: CXR with COPD changes Allergy to albuterol per record Continue supportive O2 No signs of exacerbation. (3) Femoral neck fracture Current Visit: Yes Status: Acute Code(s): S72.009A - FRACTURE OF UNSP PART OF NECK OF UNSP FEMUR, INIT SNOMED Code(s): 4995265 Comment: Unwitnessed fall, right side fracture CT pelvis is showing psoas mass on the left/contralateral side to the fracture and a sclerotic lesion of the ischial tuberosity Concern for pathologic fracture Patient is NOT medically optimized for surgery. Discussed with daughter and she is not insistant on going forward with surgery Will need to be transferred if surgery indicated. Does not appear to be main source of patient discomfort. (4) History of CVA (cerebrovascular accident) Current Visit: Yes Status: Acute Code(s): Z86.73 - PRSNL HX OF TIA (TIA), AND CEREB INFRC W/O RESID DEFICITS SNOMED Code(s): 855897643 Comment: Per patient's daughter she is sometimes forgetful, however, she can usually converse and is appropriate Unclear cause of current AMS. No Mass or CVA on MRI. AMS improving to a certain degree, able to tolerate oral intake. (5) Hypertension Current Visit: Yes Status: Acute Code(s): I10 - ESSENTIAL (PRIMARY) HYPERTENSION SNOMED Code(s): 37685622 Comment: BP stable (6) Full code status Current Visit: Yes Status: Acute Code(s): Z78.9 - OTHER SPECIFIED HEALTH STATUS SNOMED Code(s): 703928732 Status and Disposition: Remain inpatient.
[2017-11-15 04:51] LABS: ABS Basophils 0.1 10^3/ul (0-0.2); ABS Eosinophils 0.1 10^3/ul (0-0.6); ABS Lymphocytes 0.6 10^3/ul (1.0-4.8); ABS Monocytes 0.6 10^3/ul (0-0.8); ABS Neutrophils 7.9 10^3/ul (1.5-7.7); ABS Nucleated RBC 0 10^3/ul; Eosinophil % 1.5 % (0-6); Hematocrit 36 % (35-47); Hemoglobin 11.7 g/dl (12.0-16.0); Lymphocyte % 6.4 % (25-47); Mean Corpuscular HGB Conc 32 g/dl (31-36); Mean Corpuscular Hemoglobin 28 pg (27-31); Mean Corpuscular Volume 86 fL (80-97); Mean Platelet Volume 7.5 um3 (7.4-10.4); Nucleated Red Blood Cells % 0; Platelet Count 339 10^3/ul (150-450); Red Blood Count 4.21 10^6/ul (4.00-5.40); Red Cell Distribution Width 16 % (10.5-15); White Blood Count 9.3 10^3/ul (3.5-10.8)
[2017-11-15 05:07] LABS: EGFR Non-African American 215.2 (>60)
[2017-11-15] MEDS: oxyCODONE/Acetamin 5/325 MG* TAB PO PRN ×2 (06:17→11:51)
[2017-11-15] MEDS: Cyclobenzaprine TAB* 10 MG PO PRN ×3 (06:18→22:14)
[2017-11-15] MEDS: NS 0.9% 1000 ML* 1,000 ML IV SCH (06:31)
[2017-11-15] MEDS ORDERED: Potassium Chloride LIQUID* 20 MEQ PACKET PO ONE (06:57)
[2017-11-15] MEDS ORDERED: Ipratropium 0.5MG/2.5ML NEB* 0.5 MG/2.5 ML NEB.SOLN INH PRN (08:22)
[2017-11-15] MEDS ORDERED: NS 0.9% 1000 ML* 1,000 ML IV SCH ×2 (08:24→09:37)
[2017-11-15] MEDS ORDERED: Ipratropium 0.5MG/2.5ML NEB* 0.5 MG/2.5 ML NEB.SOLN ONE (08:38)
[2017-11-15] MEDS: Insulin LISPRO* 1 UNITS UNIT SUBCUT SCH ×4 (09:08→21:33)
--- NOTE | 2017-11-15 09:23 | PN ---
Progress Note - Progress Note Date of Service: 11/15/17 SOAP: Subjective: [] Patient seen at bedside. She is more talkative today. This afternoon she states her right hip is non-painful at this time, but does at other times have severe pain. Earlier this morning, she did not recall that she had broken her hip. Objective: [] Vital Signs Temp 98.4 F 11/15/17 07:44 Pulse 79 11/15/17 07:44 Resp 16 11/15/17 08:56 BP 122/46 11/15/17 07:44 Pulse Ox 94 11/15/17 07:44 Intake & Output 11/14/17 11/15/17 11/15/17 18:59 06:59 18:59 Intake Total 1550 1994 Output Total 225 350 Balance 1325 1645 Intake: IV Fluids 980 1695 NS (0.9%) 980 1695 Oral 570 300 Output: [place] 225 350 Laboratory Last Values WBC 9.3 10^3/ul (3.5-10.8) 11/15/17 04:45 RBC 4.21 10^6/ul (4.00-5.40) 11/15/17 04:45 Hgb 11.7 g/dl (12.0-16.0) L 11/15/17 04:45 Hct 36 % (35-47) 11/15/17 04:45 MCV 86 fL (80-97) 11/15/17 04:45 MCH 28 pg (27-31) 11/15/17 04:45 MCHC 32 g/dl (31-36) 11/15/17 04:45 RDW 16 % (10.5-15) H 11/15/17 04:45 Plt Count 339 10^3/ul (150-450) 11/15/17 04:45 MPV 7.5 um3 (7.4-10.4) 11/15/17 04:45 Neut % (Auto) 85.2 % (38-83) H 11/15/17 04:45 Lymph % (Auto) 6.4 % (25-47) L 11/15/17 04:45 [place] % (Auto) 6.3 % (0-7) 11/15/17 04:45 Eos % (Auto) 1.5 % (0-6) 11/15/17 04:45 Baso % (Auto) 0.6 % (0-2) 11/15/17 04:45 Absolute Neuts (auto) 7.9 10^3/ul (1.5-7.7) H 11/15/17 04:45 Absolute Lymphs (auto) 0.6 10^3/ul (1.0-4.8) L 11/15/17 04:45 Absolute Monos (auto) 0.6 10^3/ul (0-0.8) 11/15/17 04:45 Absolute Eos (auto) 0.1 10^3/ul (0-0.6) 11/15/17 04:45 Absolute Basos (auto) 0.1 10^3/ul (0-0.2) 11/15/17 04:45 Absolute Nucleated RBC 0 10^3/ul 11/15/17 04:45 Nucleated RBC % 0 11/15/17 04:45 INR (Anticoag Therapy) 0.94 (0.77-1.02) 11/11/17 10:50 Sodium 145 mmol/L (135-145) 11/15/17 04:45 Potassium 3.2 mmol/L (3.5-5.0) L 11/15/17 04:45 Chloride 109 mmol/L (101-111) 11/15/17 04:45 Carbon Dioxide 29 mmol/L (22-32) 11/15/17 04:45 Anion Gap 7 mmol/L (2-11) 11/15/17 04:45 BUN 8 mg/dL (6-24) 11/15/17 04:45 Creatinine 0.30 mg/dL (0.51-0.95) L 11/15/17 04:45 Est GFR ( Amer) 260.3 (>60) 11/15/17 04:45 Est GFR (Non-Af Amer) 215.2 (>60) 11/15/17 04:45 BUN/Creatinine Ratio 26.7 (8-20) H 11/15/17 04:45 Glucose 118 mg/dL (70-100) H 11/15/17 04:45 POC Glucose (mg/dL) 151 mg/dL (70-100) H 11/15/17 07:41 Calcium 8.2 mg/dL (8.6-10.3) L 11/15/17 04:45 Total Bilirubin 0.50 mg/dL (0.2-1.0) 11/10/17 18:17 AST 44 U/L (13-39) H 11/10/17 18:17 ALT 28 U/L (7-52) 11/10/17 18:17 Alkaline Phosphatase 229 U/L (34-104) H 11/10/17 18:17 Total Protein 5.4 g/dL (6.4-8.9) L 11/10/17 18:17 Albumin 2.8 g/dL (3.2-5.2) L 11/10/17 18:17 Globulin 2.6 g/dL (2-4) 11/10/17 18:17 Albumin/Globulin Ratio 1.1 (1-3) 11/10/17 18:17 Urine Color Megha 11/10/17 18:45 Urine Appearance Cloudy 11/10/17 18:45 Urine pH 5.0 (5-9) 11/10/17 18:45 Ur Specific [place] 1.028 (1.010-1.030) 11/10/17 18:45 Urine Protein Negative (Negative) 11/10/17 18:45 Urine Ketones Negative (Negative) 11/10/17 18:45 Urine Blood Negative (Negative) 11/10/17 18:45 Urine Nitrate Negative (Negative) 11/10/17 18:45 Urine Bilirubin Negative (Negative) 11/10/17 18:45 Urine Urobilinogen Negative (Negative) 11/10/17 18:45 Ur Leukocyte Esterase Negative (Negative) 11/10/17 18:45 Urine Glucose 2+(150 mg/dl) (Negative) A 11/10/17 18:45 Urine Ascorbic Acid * (Negative) A 11/10/17 18:45 General: patient seen at bedside. She is awake and answers questions regarding pain appropriately. RLE: Sitting frog legged. SCD's in use. Sensation intact to light touch distally. Cap refill less than two seconds distally. BL calves supple and nontender without erythema, edema or palpable cords. Assessment: []Right femoral neck fx, likely pathologic due to presence of mets Plan: NWB RLE Awaiting pathology results Patient will likely require palliative care/hospice. If surgery is deemed an option for this patient she will need to transfer to a more appropriate facility to manage pathologic fracture
[2017-11-15] MEDS ORDERED: Furosemide IV* 10 MG/ML 2 ML VIAL (20 MG) IV SLOW PU ONE (09:37)
[2017-11-15] MEDS: amLODIPine TAB* 5 MG PO SCH (09:44)
--- NOTE | 2017-11-15 10:33 | PN ---
Subjective Date of Service: 11/15/17 Interval History: Patient much more alert today. Knows name, place, and year. Unable to name day of week, month or day of month. Patient stated she is hungry. Denies pain, F/C, N/V, abdominal pain, CP, SOB. Unclear how much of questioning patient understands. Often rambles nonsensically, often about food. Family History: Unchanged from Admission Social History: Unchanged from Admission Past Medical History: Unchanged from Admission Objective Active Medications: Acetaminophen (Tylenol Tab*) 650 mg PO Q4H PRN PRN Reason: FEVER/PAIN Last Admin: 11/12/17 20:46 Dose: 650 mg Al Hydrox/Mg Hydrox/Simethicone (Maalox Plus*) 30 ml PO Q6H PRN PRN Reason: INDIGESTION Amlodipine Besylate (Norvasc Tab*) 10 mg PO DAILY [facility] Last Admin: 11/15/17 09:44 Dose: 10 mg Cyclobenzaprine HCl (Flexeril Tab*) 5 mg PO TID PRN PRN Reason: SPASMS Last Admin: 11/15/17 06:18 Dose: 5 mg Dextrose (D50w Syringe 50 Ml*) 12.5 gm IV PUSH .FOR FS < 60 - SS PRN PRN Reason: FS < 60 Diazepam (Valium Inj (Nf)) 2 mg IV Q8H PRN PRN Reason: Spasm Docusate Sodium (Colace Cap*) 100 mg PO BID [facility] Last Admin: 11/14/17 20:45 Dose: 100 mg Hydromorphone HCl (Dilaudid Inj*) 1 mg IV Q3H PRN PRN Reason: PAIN Last Admin: 11/14/17 06:29 Dose: 1 mg Insulin Human Lispro (Humalog*) 0 units SUBCUT ACHS [facility]; Protocol Last Admin: 11/15/17 09:08 Dose: 1 unit Ipratropium [place] (Atrovent 0.5 Mg Neb.Samara*) 0.5 mg INH Q4H PRN PRN Reason: SOB/WHEEZING Magnesium Hydroxide (Milk Of Magnesia Liq*) 30 ml PO Q4H PRN PRN Reason: CONSTIPATION Last Admin: 11/14/17 20:45 Dose: 30 ml Ondansetron HCl (Zofran Inj*) 4 mg IV Q4H PRN PRN Reason: NAUSEA/VOMITING Oxycodone/Acetaminophen (Percocet 5/325 Tab*) 1 tab PO Q4H PRN PRN Reason: Pain Last Admin: 11/15/17 06:17 Dose: 1 tab Vital Signs - 8 hr 11/15/17 11/15/17 11/15/17 04:05 06:17 06:18 Temperature 97.3 F Pulse Rate 72 Respiratory 16 16 16 Rate Blood Pressure 120/43 (mmHg) O2 Sat by Pulse 99 Oximetry 11/15/17 11/15/17 11/15/17 07:44 07:51 08:02 Temperature 98.4 F Pulse Rate 79 Respiratory 16 16 16 Rate Blood Pressure 122/46 (mmHg) O2 Sat by Pulse 94 Oximetry 11/15/17 08:56 Temperature Pulse Rate Respiratory 16 Rate Blood Pressure (mmHg) O2 Sat by Pulse Oximetry Oxygen Devices in Use Now: Nasal Cannula Appearance: Patient is a 77yo female who appears stated age and is sitting in the bed in [facility]. Eyes: No Scleral Icterus, PERRLA Ears/Nose/Mouth/Throat: NL Teeth, Lips, Gums, Clear Oropharnyx, Mucous Membranes Moist Neck: NL Appearance and Movements; NL JVP, Trachea Midline Respiratory: Symmetrical Chest Expansion and Respiratory Effort, - - Diminished. Cardiovascular: RRR, No Edema, - - JVD, Mildly tachycardic. Abdominal: NL Sounds; No Tenderness; No Distention, No Hepatosplenomegaly Lymphatic: No Cervical Adenopathy, - - Stable large lymphadenopathy. Extremities: No Clubbing, Cyanosis, - - Trace Edema. Pulses 2+. Right leg flexed. Patient yells out with minor manipulation. Skin: No Rash or Ulcers, No Nodules or Sclerosis Neurological: NL Sensation, NL Muscle Strength and Tone, - - CN II-XII intact. Result Diagrams: 11/15/17 04:45 11/15/17 04:45 Microbiology and Other Data: Microbiology 11/10/17 15:40 Nasal Screen MRSA (PCR) - Final Nasal Mrsa Not Detected Diagnostic Imaging: Patient Name: DAVE THOMPSON Medical Record#: [id number] Ordering Physician: Gerard Lund MD Acct.#: [id number] : 1940 Age: 77 Sex: F Location: SURGICAL STAY UNIT Exam Date: 11/10/172106 ADM Status: ADM IN Order Information: CT PELVIS W/O Accession Number: [id number] CPT: 75682 INDICATION: Traumatic fracture right hip. COMPARISON: Comparison is made with a prior x-ray study of the right femur and pelvis from November 10, 2017. TECHNIQUE: Contiguous axial sections were obtained through the pelvis without intravenous or oral contrast. Images were reconstructed in the coronal and sagittal planes. FINDINGS: The bones appear osteoporotic. There is a subcapital right femoral neck fracture. The fracture fragments are overriding. There is anterior displacement of the distal fragment relative the proximal fragment and rotation of the femur. There is varus angulation. There is nonspecific sclerotic change in the ischial tuberosity. 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 There is marked enlargement of the left psoas and iliacus muscles consistent with a mass, bulky adenopathy or hematoma. The visualized portion of the small bowel and colon appear nondistended. There is a catheter within the urinary bladder. No free intraperitoneal air or fluid is seen. IMPRESSION: 1. DISPLACED ANGULATED RIGHT SUBCAPITAL FEMORAL NECK FRACTURE. 2. SCLEROTIC LESION WITHIN THE RIGHT ISCHIAL TUBEROSITY. 3. ENLARGEMENT OF THE LEFT PSOAS AND ILIACUS MUSCLES MOST CONSISTENT WITH A MASS , BULKY ADENOPATHY OR HEMATOMA. RECOMMEND A CT OF THE CHEST, ABDOMEN AND PELVIS WITH CONTRAST FOR FURTHER EVALUATION. <Electronically signed by Juan Manuel Linda MD in [place]> 11/11/17714 Dictated By: Juan Manuel Linda MD Dictated Date/Time: 11/11/17714 Transcribed Date/Time: 11/11/17705 Copy to: CTA HEAD and NECK Conclusion: [facility] Patient Name:DAVE THOMPSON MR: [id number] : 1940 LYMPH NODES: There is biapical emphysematous change. BONES AND SOFT TISSUES: No bone or soft tissue abnormalities are noted. CTA HEAD: INTRACRANIAL CIRCULATION: There is no aneurysm, vascular malformation, occlusion , or stenosis of the visualized intracranial circulation. The anterior communicating artery complex is clear. Bilateral posterior communicating arteries are identified. VENOUS CIRCULATION: The venous system is unremarkable. PERFUSION: There is no obvious parenchymal perfusion deficit. HEMORRHAGE/INFARCT: There is no hemorrhage or acute infarct. MASSES/SHIFT: There is no mass or shift. EXTRA-AXIAL SPACES: There are no extra-axial fluid collections. SULCI AND VENTRICLES: The sulci and ventricles are normal in size and position for the patient's stated age. CEREBRUM: There is hypoattenuation of the periventricular and subcortical white matter. BRAINSTEM: There are no focal parenchymal abnormalities. CEREBELLUM: There are no focal parenchymal abnormalities. PARANASAL SINUSES: The paranasal sinuses are clear. ORBITS: The orbits are unremarkable. BONES AND SOFT TISSUE: Degenerative changes are noted of the spine. There are multiple lobulated masses of the right shoulder musculature, and evaluated on the current examination. OTHER: There is no abnormal enhancement. IMPRESSION: 1. NO INTERNAL CAROTID ARTERY STENOSIS BY NASCET CRITERIA. 2. NO ANEURYSM, VASCULAR MALFORMATION, OCCLUSION, OR STENOSIS OF THE VISUALIZED INTRACRANIAL CIRCULATION.. 3. ATHEROSCLEROSIS. 4. PROXIMAL VESSEL ISCHEMIC CHANGE. 5. NO ACUTE INTRACRANIAL PATHOLOGY. 6. MULTIPLE LOBULATED MASSES OF THE MUSCULATURE OF THE RIGHT SHOULDER GIRDLE, EVALUATED ON THE CURRENT EXAMINATION SUSPICIOUS FOR SARCOMA VERSUS METASTATIC DISEASE. MRI BRAIN Patient Name: DAVE THOMPSON Medical Record#: [id number] Ordering Physician: Nany Short NP Acct.#: [id number] : 1940 Age: 77 Sex: F Location: SURGICAL STAY UNIT Exam Date: 11/11/17 1507 ADM Status: ADM IN Order Information: MRI BRAIN W/O Accession Number: [id number] CPT: 54603 Indication: Worsening confusion and weakness. Previous CVAs with residual RIGHT- sided weakness. Comparison: CT and CTA head neck exams of the same date. Technique: Apliiqa 1.5 Tatiana GH461Q with GEM suite. MRI brain without contrast. Report: Diffusion series is negative for acute or subacute ischemia. Susceptibility series is negative for stigmata of hemosiderin deposition to indicate previous hemorrhage. Mild prominence of the cerebral sulci and cerebellar fissures collecting atrophy. Proportional ventricular enlargement. Patent basal cisterns. Disproportionate mild volume loss and T2 hyperintense ischemic gliosis at the LEFT middle cerebral artery distribution of the frontal and parietal lobes consistent with sequela of previous infarct. Additional few nonspecific T2 hyperintense foci within the cerebral white matter without mass effect. No extra-axial fluid collection evident. Preserved major intracranial flow- voids. Unremarkable orbital contents. No suspicious calvarial or skull base lesions evident. Mucous retention cyst or polyp at the inferior LEFT maxillary sinus. Unremarkable scalp. IMPRESSION: #. Negative for stigmata of acute or subacute ischemia. #. Relative mild encephalomalacia related to old LEFT MCA distribution infarct involving the posterior LEFT frontal lobe and parietal lobe. #. Mild diffuse atrophy and stigmata of chronic small vessel ischemic disease. <Electronically signed by Surinder Sung MD in [place]> 11/11/17 1632 Dictated By: Surinder Sung MD Dictated Date/Time: 11/11/17 1632 Transcribed Date/Time: 11/11/17 1623 Copy to: CARDIAC ECHO Conclusions There is normal left ventricular systolic function. The estimated ejection fraction is 50-55%. Global left ventricular wall motion and contractility are within normal limits. Mild concentric left ventricular hypertrophy is observed. There is an E to A reversal in the mitral valve flow pattern suggestive of diastolic dysfunction. There is mild to moderate aortic regurgitation. There is mild to moderate mitral regurgitation. There is mild to moderate tricuspid regurgitation. There is evidence of mild to moderate pulmonary hypertension. There is no prior echocardiogram available to compare with at this time. Assess/Plan/Problems-Billing Assessment: This is a 77 year old female patient [facility] 2/2 unwitnessed fall. PMHx sig for COPD, previous CVAs, DM and HTN that presents with a right sided displaced subcapital femoral neck fracture and multiple masses concerning for malignancy. - Patient Problems (1) Neoplasm Current Visit: Yes Status: Acute Code(s): D49.9 - NEOPLASM OF UNSPECIFIED BEHAVIOR OF UNSPECIFIED SITE SNOMED Code(s): 83025851 Comment: CTA of the neck visualized local mass in the muscularture of the right shouder Given the mass in the psoas, this is highly suspicious for metastatic disease/ sarcoma? CT chest, abdomen and pelvis with contrast shows numerous masses. Appreciate oncology input. FNA of left axillary mass pending. Will likely have no curative treatment options if metastatic cancer confirmed. (2) COPD (chronic obstructive pulmonary disease) Current Visit: Yes Status: Acute Code(s): J44.9 - CHRONIC OBSTRUCTIVE PULMONARY DISEASE, UNSPECIFIED SNOMED Code(s): 49022613 Comment: CXR with COPD changes Allergy to albuterol per record Continue supportive O2 Wheezing this AM. Ipratropium inhalers as tolerated. (3) Femoral neck fracture Current Visit: Yes Status: Acute Code(s): S72.009A - FRACTURE OF UNSP PART OF NECK OF UNSP FEMUR, INIT SNOMED Code(s): 2567035 Comment: Unwitnessed fall, right side fracture CT pelvis is showing psoas mass on the left/contralateral side to the fracture and a sclerotic lesion of the ischial tuberosity Concern for pathologic fracture Patient is NOT medically optimized for surgery. Discussed with daughter and she is not insistant on going forward with surgery Will need to be transferred if surgery indicated. Does not appear to be main source of patient discomfort. (4) History of CVA (cerebrovascular accident) Current Visit: Yes Status: Acute Code(s): Z86.73 - PRSNL HX OF TIA (TIA), AND CEREB INFRC W/O RESID DEFICITS SNOMED Code(s): 422420094 Comment: Per patient's daughter she is sometimes forgetful, however, she can usually converse and is appropriate. Unclear cause of current AMS. No Mass or CVA on MRI. AMS greatly improved from yesterday. Near baseline from reports. (5) Fluid overload Current Visit: Yes Status: Acute Code(s): E87.70 - FLUID OVERLOAD, UNSPECIFIED SNOMED Code(s): 36608111 Comment: Normal renal function with JVD and diastolic dysfunction on Echo. JVD and mild edema. Oliguria. Will trial lasix and monitor breathing. (6) Hypertension Current Visit: Yes Status: Acute Code(s): I10 - ESSENTIAL (PRIMARY) HYPERTENSION SNOMED Code(s): 45054359 Comment: BP stable (7) Full code status Current Visit: Yes Status: Acute Code(s): Z78.9 - OTHER SPECIFIED HEALTH STATUS SNOMED Code(s): 692661285 Status and Disposition: Remain inpatient.
[2017-11-15] MEDS: Docusate CAP* 100 MG PO SCH ×2 (12:05→22:14)
[2017-11-15] MEDS: HYDROmorphone INJ* 0.5 MG/0.5 ML SYRINGE IV PRN (19:55)
[2017-11-15] MEDS: Acetaminophen TAB* 325 MG PO PRN (22:15)
[2017-11-16] MEDS: HYDROmorphone INJ* 0.5 MG/0.5 ML SYRINGE IV PRN ×4 (03:03→18:46)
[2017-11-16 07:01] LABS: ABS Basophils 0 10^3/ul (0-0.2); ABS Eosinophils 0.2 10^3/ul (0-0.6); ABS Lymphocytes 0.5 10^3/ul (1.0-4.8); ABS Monocytes 0.4 10^3/ul (0-0.8); ABS Neutrophils 6.5 10^3/ul (1.5-7.7); ABS Nucleated RBC 0 10^3/ul; Eosinophil % 2.4 % (0-6); Hematocrit 37 % (35-47); Hemoglobin 12.2 g/dl (12.0-16.0); Lymphocyte % 6.4 % (25-47); Mean Corpuscular HGB Conc 33 g/dl (31-36); Mean Corpuscular Hemoglobin 28 pg (27-31); Mean Corpuscular Volume 85 fL (80-97); Mean Platelet Volume 7.5 um3 (7.4-10.4); Nucleated Red Blood Cells % 0.1; Platelet Count 335 10^3/ul (150-450); Red Blood Count 4.32 10^6/ul (4.00-5.40); Red Cell Distribution Width 16 % (10.5-15); White Blood Count 7.6 10^3/ul (3.5-10.8)
[2017-11-16 07:17] LABS: EGFR Non-African American 215.2 (>60)
[2017-11-16] MEDS: Insulin LISPRO* 1 UNITS UNIT SUBCUT SCH ×4 (07:28→21:47)
--- NOTE | 2017-11-16 08:52 | PN ---
Progress Note - Progress Note Date of Service: 11/16/17 SOAP: Subjective: []Patient seen at bedside, she is eating breakfast. She denies pain currently. Objective: General: patient seen at bedside. She is awake and answers questions regarding pain appropriately. RLE: Sitting frog legged. Thigh is soft. DP1+, Cap refill less than two seconds distally. BL calves supple and nontender without erythema, edema or palpable cords. 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 If surgery is deemed an option for this patient she will need to transfer to a more appropriate facility to manage pathologic fracture
[2017-11-16] MEDS: amLODIPine TAB* 5 MG PO SCH ×2 (09:59→10:55)
[2017-11-16] MEDS: Docusate CAP* 100 MG PO SCH ×3 (09:59→22:02)
--- NOTE | 2017-11-16 15:01 | PN ---
Subjective Date of Service: 11/16/17 Interval History: Patient more alert. Still does not respond to questioning. Mental status seems to fluctuate with pain medication dosing. Discussed with daughter and patient will be a DNR. Awaiting repeat FNA and histology. Family History: Unchanged from Admission Social History: Unchanged from Admission Past Medical History: Unchanged from Admission Objective Active Medications: Acetaminophen (Tylenol Tab*) 650 mg PO Q4H PRN PRN Reason: FEVER/PAIN Last Admin: 11/15/17 22:15 Dose: 650 mg Al Hydrox/Mg Hydrox/Simethicone (Maalox Plus*) 30 ml PO Q6H PRN PRN Reason: INDIGESTION Amlodipine Besylate (Norvasc Tab*) 10 mg PO DAILY [facility] Last Admin: 11/16/17 10:55 Dose: 10 mg Cyclobenzaprine HCl (Flexeril Tab*) 5 mg PO TID PRN PRN Reason: SPASMS Last Admin: 11/15/17 22:14 Dose: 5 mg Dextrose (D50w Syringe 50 Ml*) 12.5 gm IV PUSH .FOR FS < 60 - SS PRN PRN Reason: FS < 60 Diazepam (Valium Inj (Nf)) 2 mg IV Q8H PRN PRN Reason: Spasm Last Admin: 11/15/17 15:32 Dose: 2 mg Docusate Sodium (Colace Cap*) 100 mg PO BID [facility] Last Admin: 11/16/17 10:59 Dose: 100 mg Hydromorphone HCl (Dilaudid Inj*) 1 mg IV Q3H PRN PRN Reason: PAIN Last Admin: 11/16/17 11:13 Dose: 1 mg Insulin Human Lispro (Humalog*) 0 units SUBCUT ACHS [facility]; Protocol Last Admin: 11/16/17 11:49 Dose: 1 unit Ipratropium Arminto (Atrovent 0.5 Mg Neb.Samara*) 0.5 mg INH Q4H PRN PRN Reason: SOB/WHEEZING Magnesium Hydroxide (Milk Of Magnesia Liq*) 30 ml PO Q4H PRN PRN Reason: CONSTIPATION Last Admin: 11/14/17 20:45 Dose: 30 ml Ondansetron HCl (Zofran Inj*) 4 mg IV Q4H PRN PRN Reason: NAUSEA/VOMITING Oxycodone/Acetaminophen (Percocet 5/325 Tab*) 1 tab PO Q4H PRN PRN Reason: Pain Last Admin: 11/15/17 11:51 Dose: 1 tab Vital Signs - 8 hr 11/16/17 11/16/17 11/16/17 07:35 09:45 11:13 Temperature 97.4 F Pulse Rate 72 Respiratory 12 16 16 Rate Blood Pressure 132/45 (mmHg) O2 Sat by Pulse 99 Oximetry 11/16/17 11/16/17 11:37 13:02 Temperature 98.6 F Pulse Rate 94 Respiratory 21 16 Rate Blood Pressure 129/60 (mmHg) O2 Sat by Pulse 90 Oximetry Oxygen Devices in Use Now: Nasal Cannula Appearance: Patient is a 77yo female who appears stated age and is sitting in the bed in NAD. Eyes: No Scleral Icterus, PERRLA Ears/Nose/Mouth/Throat: NL Teeth, Lips, Gums, Clear Oropharnyx, Mucous Membranes Moist Neck: NL Appearance and Movements; NL JVP, Trachea Midline Respiratory: Symmetrical Chest Expansion and Respiratory Effort, - - Diminished throughout, Wheezing. Cardiovascular: NL Sounds; No Murmurs; No JVD, RRR, No Edema Abdominal: NL Sounds; No Tenderness; No Distention, No Hepatosplenomegaly Lymphatic: No Cervical Adenopathy, - - Large inginual and axillary lymphadenpathy. Extremities: No Edema, No Clubbing, Cyanosis Skin: No Rash or Ulcers, No Nodules or Sclerosis Neurological: - - Responds with eyes to voice. Unable to do any other neurological examination. Result Diagrams: 11/16/17 06:27 11/16/17 06:27 Microbiology and Other Data: Microbiology 11/10/17 15:40 Nasal Screen MRSA (PCR) - Final Nasal Mrsa Not Detected Diagnostic Imaging: Patient Name: DAVE THOMPSON Medical Record#: [id number] Ordering Physician: Gerard Lund MD Acct.#: [id number] : 1940 Age: 77 Sex: F Location: SURGICAL STAY UNIT Exam Date: 11/10/172106 ADM Status: ADM IN Order Information: CT PELVIS W/O Accession Number: [id number] CPT: 25552 INDICATION: Traumatic fracture right hip. COMPARISON: Comparison is made with a prior x-ray study of the right femur and pelvis from November 10, 2017. TECHNIQUE: Contiguous axial sections were obtained through the pelvis without intravenous or oral contrast. Images were reconstructed in the coronal and sagittal planes. FINDINGS: The bones appear osteoporotic. There is a subcapital right femoral neck fracture. The fracture fragments are overriding. There is anterior displacement of the distal fragment relative the proximal fragment and rotation of the femur. There is varus angulation. There is nonspecific sclerotic change in the ischial tuberosity. 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 There is marked enlargement of the left psoas and iliacus muscles consistent with a mass, bulky adenopathy or hematoma. The visualized portion of the small bowel and colon appear nondistended. There is a catheter within the urinary bladder. No free intraperitoneal air or fluid is seen. IMPRESSION: 1. DISPLACED ANGULATED RIGHT SUBCAPITAL FEMORAL NECK FRACTURE. 2. SCLEROTIC LESION WITHIN THE RIGHT ISCHIAL TUBEROSITY. 3. ENLARGEMENT OF THE LEFT PSOAS AND ILIACUS MUSCLES MOST CONSISTENT WITH A MASS , BULKY ADENOPATHY OR HEMATOMA. RECOMMEND A CT OF THE CHEST, ABDOMEN AND PELVIS WITH CONTRAST FOR FURTHER EVALUATION. <Electronically signed by Juan Manuel Linda MD in [place]> 11/11/17714 Dictated By: Juan Manuel Linda MD Dictated Date/Time: 11/11/17714 Transcribed Date/Time: 11/11/17705 Copy to: CTA HEAD and NECK Conclusion: [facility] Patient Name:DAVE THOMPSON MR: [id number] : 1940 LYMPH NODES: There is biapical emphysematous change. BONES AND SOFT TISSUES: No bone or soft tissue abnormalities are noted. CTA HEAD: INTRACRANIAL CIRCULATION: There is no aneurysm, vascular malformation, occlusion , or stenosis of the visualized intracranial circulation. The anterior communicating artery complex is clear. Bilateral posterior communicating arteries are identified. VENOUS CIRCULATION: The venous system is unremarkable. PERFUSION: There is no obvious parenchymal perfusion deficit. HEMORRHAGE/INFARCT: There is no hemorrhage or acute infarct. MASSES/SHIFT: There is no mass or shift. EXTRA-AXIAL SPACES: There are no extra-axial fluid collections. SULCI AND VENTRICLES: The sulci and ventricles are normal in size and position for the patient's stated age. CEREBRUM: There is hypoattenuation of the periventricular and subcortical white matter. BRAINSTEM: There are no focal parenchymal abnormalities. CEREBELLUM: There are no focal parenchymal abnormalities. PARANASAL SINUSES: The paranasal sinuses are clear. ORBITS: The orbits are unremarkable. BONES AND SOFT TISSUE: Degenerative changes are noted of the spine. There are multiple lobulated masses of the right shoulder musculature, and evaluated on the current examination. OTHER: There is no abnormal enhancement. IMPRESSION: 1. NO INTERNAL CAROTID ARTERY STENOSIS BY NASCET CRITERIA. 2. NO ANEURYSM, VASCULAR MALFORMATION, OCCLUSION, OR STENOSIS OF THE VISUALIZED INTRACRANIAL CIRCULATION.. 3. ATHEROSCLEROSIS. 4. PROXIMAL VESSEL ISCHEMIC CHANGE. 5. NO ACUTE INTRACRANIAL PATHOLOGY. 6. MULTIPLE LOBULATED MASSES OF THE MUSCULATURE OF THE RIGHT SHOULDER GIRDLE, EVALUATED ON THE CURRENT EXAMINATION SUSPICIOUS FOR SARCOMA VERSUS METASTATIC DISEASE. MRI BRAIN Patient Name: DAVE THOMPSON Medical Record#: [id number] Ordering Physician: Nany Short NP Acct.#: [id number] : 1940 Age: 77 Sex: F Location: SURGICAL STAY UNIT Exam Date: 11/11/17 1507 ADM Status: ADM IN Order Information: MRI BRAIN W/O Accession Number: [id number] CPT: 04693 Indication: Worsening confusion and weakness. Previous CVAs with residual RIGHT- sided weakness. Comparison: CT and CTA head neck exams of the same date. Technique: [employer] [place] 1.5 Tatiana QE245O with GEM suite. MRI brain without contrast. Report: Diffusion series is negative for acute or subacute ischemia. Susceptibility series is negative for stigmata of hemosiderin deposition to indicate previous hemorrhage. Mild prominence of the cerebral sulci and cerebellar fissures collecting atrophy. Proportional ventricular enlargement. Patent basal cisterns. Disproportionate mild volume loss and T2 hyperintense ischemic gliosis at the LEFT middle cerebral artery distribution of the frontal and parietal lobes consistent with sequela of previous infarct. Additional few nonspecific T2 hyperintense foci within the cerebral white matter without mass effect. No extra-axial fluid collection evident. Preserved major intracranial flow- voids. Unremarkable orbital contents. No suspicious calvarial or skull base lesions evident. Mucous retention cyst or polyp at the inferior LEFT maxillary sinus. Unremarkable scalp. IMPRESSION: #. Negative for stigmata of acute or subacute ischemia. #. Relative mild encephalomalacia related to old LEFT MCA distribution infarct involving the posterior LEFT frontal lobe and parietal lobe. #. Mild diffuse atrophy and stigmata of chronic small vessel ischemic disease. <Electronically signed by Surinder Sung MD in [place]> 11/11/17 1632 Dictated By: Surinder Sung MD Dictated Date/Time: 11/11/17 1632 Transcribed Date/Time: 11/11/17 1623 Copy to: CARDIAC ECHO Conclusions There is normal left ventricular systolic function. The estimated ejection fraction is 50-55%. Global left ventricular wall motion and contractility are within normal limits. Mild concentric left ventricular hypertrophy is observed. There is an E to A reversal in the mitral valve flow pattern suggestive of diastolic dysfunction. There is mild to moderate aortic regurgitation. There is mild to moderate mitral regurgitation. There is mild to moderate tricuspid regurgitation. There is evidence of mild to moderate pulmonary hypertension. There is no prior echocardiogram available to compare with at this time. Assess/Plan/Problems-Billing Assessment: This is a 77 year old female patient transferred from a retirement for femur fracture 2/2 unwitnessed fall. PMHx sig for COPD, previous CVAs, DM and HTN that presents with a right sided displaced subcapital femoral neck fracture and multiple masses concerning for malignancy. - Patient Problems (1) Neoplasm Current Visit: Yes Status: Acute Code(s): D49.9 - NEOPLASM OF UNSPECIFIED BEHAVIOR OF UNSPECIFIED SITE SNOMED Code(s): 74047502 Comment: CTA of the neck visualized local mass in the muscularture of the right shouder Given the mass in the psoas, this is highly suspicious for metastatic disease/ sarcoma? CT chest, abdomen and pelvis with contrast shows numerous masses. Appreciate oncology input. 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 Does not explain other masses. FNA of shoulder pending. Will likely have no curative treatment options if metastatic cancer confirmed. (2) COPD (chronic obstructive pulmonary disease) Current Visit: Yes Status: Acute Code(s): J44.9 - CHRONIC OBSTRUCTIVE PULMONARY DISEASE, UNSPECIFIED SNOMED Code(s): 70623940 Comment: CXR with COPD changes Allergy to albuterol per record Continue supportive O2 No signs of exacerbation. (3) Femoral neck fracture Current Visit: Yes Status: Acute Code(s): S72.009A - FRACTURE OF UNSP PART OF NECK OF UNSP FEMUR, INIT SNOMED Code(s): 9768684 Comment: Unwitnessed fall, right side fracture CT pelvis is showing psoas mass on the left/contralateral side to the fracture and a sclerotic lesion of the ischial tuberosity Concern for pathologic fracture Patient is NOT medically optimized for surgery. Discussed with daughter and she is not insistant on going forward with surgery Will need to be transferred if surgery indicated. Does not appear to be main source of patient discomfort. (4) History of CVA (cerebrovascular accident) Current Visit: Yes Status: Acute Code(s): Z86.73 - PRSNL HX OF TIA (TIA), AND CEREB INFRC W/O RESID DEFICITS SNOMED Code(s): 301750450 Comment: Per patient's daughter she is sometimes forgetful, however, she can usually converse and is appropriate. Unclear cause of current AMS. No Mass or CVA on MRI. AMS stable from yesterday. Near baseline. (5) Fluid overload Current Visit: Yes Status: Acute Code(s): E87.70 - FLUID OVERLOAD, UNSPECIFIED SNOMED Code(s): 80945424 Comment: JVD resolved. Persistent hypoxia, normal lung exam with no edema. (6) Hypertension Current Visit: Yes Status: Acute Code(s): I10 - ESSENTIAL (PRIMARY) HYPERTENSION SNOMED Code(s): 04154191 Comment: BP stable (7) Full code status Current Visit: Yes Status: Acute Code(s): Z78.9 - OTHER SPECIFIED HEALTH STATUS SNOMED Code(s): 679086035 Status and Disposition: Remain inpatient.
[2017-11-16] MEDS ORDERED: NS 0.9% 1000 ML* 1,000 ML IV ONE (18:30)
[2017-11-16] MEDS ORDERED: Magnesium Sulfate 2 GM IV* 2 GM/50 ML BAG IVPB ONE (18:40)
[2017-11-16] MEDS ORDERED: Metoprolol Tartrate TAB* 25 MG PO SCH (18:45)
[2017-11-16] MEDS ORDERED: Metoprolol Tartrate IV* 1 MG/ML 5 ML VIAL IV ONE (18:50)
--- NOTE | 2017-11-16 18:53 | PN ---
Hospitalist Progress Note Date of Service: 11/16/17 Patient went into rapid Afib with rates in the 140s. Not in acute distress. No chest pain. Stable Vital signs. Treated with Metoprolol, fluids, and magnesium and transferred to telemetry unit. Unable to contact family to guide care.
[2017-11-16] MEDS ORDERED: Magnesium Sulfate IV* 2 GM in NS 0.9% 100 ML* 100 ML IVPB ONE (19:30)
[2017-11-16] MEDS: NS 0.9% 1000 ML* 1,000 ML IV SCH (19:55)
[2017-11-16] MEDS: Metoprolol Tartrate TAB* 25 MG PO SCH (21:57)
[2017-11-17] MEDS: Metoprolol Tartrate TAB* 25 MG PO SCH (04:02)
[2017-11-17] MEDS: HYDROmorphone INJ* 0.5 MG/0.5 ML SYRINGE IV PRN ×4 (04:05→23:26)
[2017-11-17 06:40] LABS: ABS Basophils 0 10^3/ul (0-0.2); ABS Eosinophils 0.1 10^3/ul (0-0.6); ABS Lymphocytes 0.6 10^3/ul (1.0-4.8); ABS Monocytes 0.6 10^3/ul (0-0.8); ABS Neutrophils 8.9 10^3/ul (1.5-7.7); ABS Nucleated RBC 0 10^3/ul; Eosinophil % 0.5 % (0-6); Hematocrit 36 % (35-47); Hemoglobin 11.8 g/dl (12.0-16.0); Lymphocyte % 5.9 % (25-47); Mean Corpuscular HGB Conc 33 g/dl (31-36); Mean Corpuscular Hemoglobin 28 pg (27-31); Mean Corpuscular Volume 85 fL (80-97); Mean Platelet Volume 7.4 um3 (7.4-10.4); Nucleated Red Blood Cells % 0.1; Platelet Count 349 10^3/ul (150-450); Red Cell Distribution Width 16 % (10.5-15); White Blood Count 10.2 10^3/ul (3.5-10.8)
[2017-11-17 06:53] LABS: EGFR Non-African American 215.2 (>60)
[2017-11-17] MEDS: Insulin LISPRO* 1 UNITS UNIT SUBCUT SCH ×4 (08:21→20:54)
[2017-11-17] MEDS: oxyCODONE/Acetamin 5/325 MG* TAB PO PRN ×2 (08:27→16:24)
[2017-11-17] MEDS: Docusate CAP* 100 MG PO SCH ×2 (08:28→20:49)
[2017-11-17] MEDS: Metoprolol Succinate XL TAB* 50 MG PO SCH (08:28)
[2017-11-17] MEDS: NS 0.9% 1000 ML* 1,000 ML IV SCH ×2 (08:46→20:51)
--- NOTE | 2017-11-17 09:08 | PN ---
Progress Note - Progress Note Date of Service: 11/17/17 SOAP: Subjective: []Patient seen at bedside. She is eating breakfast. Denies any current RLE pain. She was moved to the tele unit last night due to rapid a-fib. Objective: [] General: Lying in bed, more alert than previous. Answers questions appropriately RLE: hip abducted, externally rotated. Thigh is soft, no obvious skin breakdown or ecchymosis. Lateral malleolus erythematous, wearing booties. Sensation intact distally to light touch. Capillary refill less than two seconds distally. Assessment: []Right femoral neck fx, likely pathologic due to presence of mets Plan: NWB RLE If surgery is deemed an option for this patient she will likely need to transfer to a more appropriate facility to manage pathologic fracture Vital Signs Temp 99.2 F 11/17/17 03:53 Pulse 80 11/17/17 03:53 Resp 18 11/17/17 08:27 BP 155/68 11/17/17 03:53 Pulse Ox 93 11/17/17 03:53 Intake & Output 11/16/17 11/17/17 11/17/17 18:59 06:59 18:59 Intake Total 410 0 Output Total 250 400 Balance 160 -400 Intake: Oral 410 0 Output: Urine 175 [place] 250 225 Other: # Bowel Movements 0 Laboratory Last Values WBC 10.2 10^3/ul (3.5-10.8) 11/17/17 06:16 RBC 4.20 10^6/ul (4.00-5.40) 11/17/17 06:16 Hgb 11.8 g/dl (12.0-16.0) L 11/17/17 06:16 Hct 36 % (35-47) 11/17/17 06:16 MCV 85 fL (80-97) 11/17/17 06:16 MCH 28 pg (27-31) 11/17/17 06:16 MCHC 33 g/dl (31-36) 11/17/17 06:16 RDW 16 % (10.5-15) H 11/17/17 06:16 Plt Count 349 10^3/ul (150-450) 11/17/17 06:16 MPV 7.4 um3 (7.4-10.4) 11/17/17 06:16 Neut % (Auto) 87.4 % (38-83) H 11/17/17 06:16 Lymph % (Auto) 5.9 % (25-47) L 11/17/17 06:16 [place] % (Auto) 5.7 % (0-7) 11/17/17 06:16 Eos % (Auto) 0.5 % (0-6) 11/17/17 06:16 Baso % (Auto) 0.5 % (0-2) 11/17/17 06:16 Absolute Neuts (auto) 8.9 10^3/ul (1.5-7.7) H 11/17/17 06:16 Absolute Lymphs (auto) 0.6 10^3/ul (1.0-4.8) L 11/17/17 06:16 Absolute Monos (auto) 0.6 10^3/ul (0-0.8) 11/17/17 06:16 Absolute Eos (auto) 0.1 10^3/ul (0-0.6) 11/17/17 06:16 Absolute Basos (auto) 0 10^3/ul (0-0.2) 11/17/17 06:16 Absolute Nucleated RBC 0 10^3/ul 11/17/17 06:16 Nucleated RBC % 0.1 11/17/17 06:16 INR (Anticoag Therapy) 0.94 (0.77-1.02) 11/11/17 10:50 Sodium 143 mmol/L (135-145) 11/17/17 06:16 Potassium 3.4 mmol/L (3.5-5.0) L 11/17/17 06:16 Chloride 105 mmol/L (101-111) 11/17/17 06:16 Carbon Dioxide 32 mmol/L (22-32) 11/17/17 06:16 Anion Gap 6 mmol/L (2-11) 11/17/17 06:16 BUN 10 mg/dL (6-24) 11/17/17 06:16 Creatinine < 0.30 mg/dL (0.51-0.95) L 11/17/17 06:16 Est GFR ( Amer) 260.3 (>60) 11/17/17 06:16 Est GFR (Non-Af Amer) 215.2 (>60) 11/17/17 06:16 BUN/Creatinine Ratio 33.0 (8-20) H 11/17/17 06:16 Glucose 128 mg/dL (70-100) H 11/17/17 06:16 POC Glucose (mg/dL) 127 mg/dL (70-100) H 11/17/17 08:08 Calcium 7.9 mg/dL (8.6-10.3) L 11/17/17 06:16 Magnesium 2.0 mg/dL (1.9-2.7) 11/17/17 06:16 Total Bilirubin 0.30 mg/dL (0.2-1.0) 11/16/17 06:27 AST 22 U/L (13-39) 11/16/17 06:27 ALT 16 U/L (7-52) 11/16/17 06:27 Alkaline Phosphatase 343 U/L (34-104) H 11/16/17 06:27 Total Protein 4.7 g/dL (6.4-8.9) L 11/16/17 06:27 Albumin 2.0 g/dL (3.2-5.2) L 11/16/17 06:27 Globulin 2.7 g/dL (2-4) 11/16/17 06:27 Albumin/Globulin Ratio 0.7 (1-3) L 11/16/17 06:27 Urine Color Megha 11/10/17 18:45 Urine Appearance Cloudy 11/10/17 18:45 Urine pH 5.0 (5-9) 11/10/17 18:45 Ur Specific Rosine 1.028 (1.010-1.030) 11/10/17 18:45 Urine Protein Negative (Negative) 11/10/17 18:45 Urine Ketones Negative (Negative) 11/10/17 18:45 Urine Blood Negative (Negative) 11/10/17 18:45 Urine Nitrate Negative (Negative) 11/10/17 18:45 Urine Bilirubin Negative (Negative) 11/10/17 18:45 Urine Urobilinogen Negative (Negative) 11/10/17 18:45 Ur Leukocyte Esterase Negative (Negative) 11/10/17 18:45 Urine Glucose 2+(150 mg/dl) (Negative) A 11/10/17 18:45 Urine Ascorbic Acid * (Negative) A 11/10/17 18:45 Flow Intrp 2-8 Markers Not Reportable 11/12/17 13:40 Flow Intrp 9-15 Marker 11/12/17 13:40 Flow Intrp 16+ Markers Not Reportable 11/12/17 13:40
[2017-11-17] MEDS ORDERED: Potassium Chloride LIQUID* 20 MEQ PACKET PO ONE (10:26)
--- NOTE | 2017-11-17 17:09 | PN ---
Subjective Date of Service: 11/17/17 Interval History: Patient more alert and talking loudly in a pressured manner. Usually nonsensical but able to answer questions appropriately occasionally. Denies pain , palpitations, SOB. Converted to NSR yesterday evening after 1 dose metoprolol. Family History: Unchanged from Admission Social History: Unchanged from Admission Past Medical History: Unchanged from Admission Objective Active Medications: Acetaminophen (Tylenol Tab*) 650 mg PO Q4H PRN PRN Reason: FEVER/PAIN Last Admin: 11/15/17 22:15 Dose: 650 mg Al Hydrox/Mg Hydrox/Simethicone (Maalox Plus*) 30 ml PO Q6H PRN PRN Reason: INDIGESTION Cyclobenzaprine HCl (Flexeril Tab*) 5 mg PO TID PRN PRN Reason: SPASMS Last Admin: 11/15/17 22:14 Dose: 5 mg Dextrose (D50w Syringe 50 Ml*) 12.5 gm IV PUSH .FOR FS < 60 - SS PRN PRN Reason: FS < 60 Diazepam (Valium Inj (Nf)) 2 mg IV Q8H PRN PRN Reason: Spasm Last Admin: 11/15/17 15:32 Dose: 2 mg Docusate Sodium (Colace Cap*) 100 mg PO BID [facility] Last Admin: 11/17/17 08:28 Dose: 100 mg Hydromorphone HCl (Dilaudid Inj*) 1 mg IV Q3H PRN PRN Reason: PAIN Last Admin: 11/17/17 14:13 Dose: 1 mg Sodium Chloride (Ns 0.9% 1000 Ml*) 1,000 mls @ 75 mls/hr IV PER RATE [facility] Last Admin: 11/17/17 08:46 Dose: 75 mls/hr Insulin Human Lispro (Humalog*) 0 units SUBCUT ACHS [facility]; Protocol Last Admin: 11/17/17 16:35 Dose: Not Given Ipratropium Ripley (Atrovent 0.5 Mg Neb.Samara*) 0.5 mg INH Q4H PRN PRN Reason: SOB/WHEEZING Magnesium Hydroxide (Milk Of Magnesia Liq*) 30 ml PO Q4H PRN PRN Reason: CONSTIPATION Last Admin: 11/14/17 20:45 Dose: 30 ml Metoprolol Succinate (Toprol Xl Tab*) 50 mg PO DAILY MISSY Last Admin: 11/17/17 08:28 Dose: 50 mg Ondansetron HCl (Zofran Inj*) 4 mg IV Q4H PRN PRN Reason: NAUSEA/VOMITING Oxycodone/Acetaminophen (Percocet 5/325 Tab*) 1 tab PO Q4H PRN PRN Reason: Pain Last Admin: 11/17/17 16:24 Dose: 1 tab Vital Signs - 8 hr 11/17/17 11/17/17 11/17/17 10:00 11:13 14:13 Temperature 98.0 F Pulse Rate 64 Respiratory 16 16 18 Rate Blood Pressure 124/51 (mmHg) O2 Sat by Pulse 98 Oximetry 11/17/17 11/17/17 15:00 16:24 Temperature Pulse Rate Respiratory 16 8 Rate Blood Pressure (mmHg) O2 Sat by Pulse Oximetry Oxygen Devices in Use Now: Nasal Cannula Appearance: Patient is a 77yo female who appears stated age and is sitting in the bed in NAD. Eyes: No Scleral Icterus, PERRLA Ears/Nose/Mouth/Throat: NL Teeth, Lips, Gums, Clear Oropharnyx, Mucous Membranes Moist Neck: NL Appearance and Movements; NL JVP, Trachea Midline Respiratory: Symmetrical Chest Expansion and Respiratory Effort, Clear to Auscultation Cardiovascular: NL Sounds; No Murmurs; No JVD, RRR, No Edema Abdominal: NL Sounds; No Tenderness; No Distention, No Hepatosplenomegaly Lymphatic: No Cervical Adenopathy Extremities: No Edema, No Clubbing, Cyanosis, - - Left leg painful to any manipulation. Skin: No Rash or Ulcers, No Nodules or Sclerosis Neurological: - - CN II-XII intact. A/Ox1 Result Diagrams: 11/17/17 06:16 11/17/17 06:16 Microbiology and Other Data: Microbiology 11/10/17 15:40 Nasal Screen MRSA (PCR) - Final Nasal Mrsa Not Detected Diagnostic Imaging: Patient Name: DAVE THOMPSON Medical Record#: [id number] Ordering Physician: Gerard Lund MD Acct.#: [id number] : 1940 Age: 77 Sex: F Location: SURGICAL STAY UNIT Exam Date: 11/10/172106 ADM Status: ADM IN Order Information: CT PELVIS W/O Accession Number: [id number] CPT: 47060 INDICATION: Traumatic fracture right hip. COMPARISON: Comparison is made with a prior x-ray study of the right femur and pelvis from November 10, 2017. TECHNIQUE: Contiguous axial sections were obtained through the pelvis without intravenous or oral contrast. Images were reconstructed in the coronal and sagittal planes. FINDINGS: The bones appear osteoporotic. There is a subcapital right femoral neck fracture. The fracture fragments are overriding. There is anterior displacement of the distal fragment relative the proximal fragment and rotation of the femur. There is varus angulation. There is nonspecific sclerotic change in the ischial tuberosity. 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 There is marked enlargement of the left psoas and iliacus muscles consistent with a mass, bulky adenopathy or hematoma. The visualized portion of the small bowel and colon appear nondistended. There is a catheter within the urinary bladder. No free intraperitoneal air or fluid is seen. IMPRESSION: 1. DISPLACED ANGULATED RIGHT SUBCAPITAL FEMORAL NECK FRACTURE. 2. SCLEROTIC LESION WITHIN THE RIGHT ISCHIAL TUBEROSITY. 3. ENLARGEMENT OF THE LEFT PSOAS AND ILIACUS MUSCLES MOST CONSISTENT WITH A MASS , BULKY ADENOPATHY OR HEMATOMA. RECOMMEND A CT OF THE CHEST, ABDOMEN AND PELVIS WITH CONTRAST FOR FURTHER EVALUATION. <Electronically signed by Juan Manuel Linda MD in [place]> 11/11/17714 Dictated By: Juan Manuel Linda MD Dictated Date/Time: 11/11/17714 Transcribed Date/Time: 11/11/17705 Copy to: CTA HEAD and NECK Conclusion: [facility] Patient Name:DAVE THOMPSON MR: [id number] : 1940 LYMPH NODES: There is biapical emphysematous change. BONES AND SOFT TISSUES: No bone or soft tissue abnormalities are noted. CTA HEAD: INTRACRANIAL CIRCULATION: There is no aneurysm, vascular malformation, occlusion , or stenosis of the visualized intracranial circulation. The anterior communicating artery complex is clear. Bilateral posterior communicating arteries are identified. VENOUS CIRCULATION: The venous system is unremarkable. PERFUSION: There is no obvious parenchymal perfusion deficit. HEMORRHAGE/INFARCT: There is no hemorrhage or acute infarct. MASSES/SHIFT: There is no mass or shift. EXTRA-AXIAL SPACES: There are no extra-axial fluid collections. SULCI AND VENTRICLES: The sulci and ventricles are normal in size and position for the patient's stated age. CEREBRUM: There is hypoattenuation of the periventricular and subcortical white matter. BRAINSTEM: There are no focal parenchymal abnormalities. CEREBELLUM: There are no focal parenchymal abnormalities. PARANASAL SINUSES: The paranasal sinuses are clear. ORBITS: The orbits are unremarkable. BONES AND SOFT TISSUE: Degenerative changes are noted of the spine. There are multiple lobulated masses of the right shoulder musculature, and evaluated on the current examination. OTHER: There is no abnormal enhancement. IMPRESSION: 1. NO INTERNAL CAROTID ARTERY STENOSIS BY NASCET CRITERIA. 2. NO ANEURYSM, VASCULAR MALFORMATION, OCCLUSION, OR STENOSIS OF THE VISUALIZED INTRACRANIAL CIRCULATION.. 3. ATHEROSCLEROSIS. 4. PROXIMAL VESSEL ISCHEMIC CHANGE. 5. NO ACUTE INTRACRANIAL PATHOLOGY. 6. MULTIPLE LOBULATED MASSES OF THE MUSCULATURE OF THE RIGHT SHOULDER GIRDLE, EVALUATED ON THE CURRENT EXAMINATION SUSPICIOUS FOR SARCOMA VERSUS METASTATIC DISEASE. MRI BRAIN Patient Name: DAVE THOMPSON Medical Record#: [id number] Ordering Physician: Nany Short NP Acct.#: [id number] : 1940 Age: 77 Sex: F Location: SURGICAL STAY UNIT Exam Date: 11/11/17 1507 ADM Status: ADM IN Order Information: MRI BRAIN W/O Accession Number: [id number] CPT: 07337 Indication: Worsening confusion and weakness. Previous CVAs with residual RIGHT- sided weakness. Comparison: CT and CTA head neck exams of the same date. Technique: [employer] 1.5 Tatiana NT301O with GEM suite. MRI brain without contrast. Report: Diffusion series is negative for acute or subacute ischemia. Susceptibility series is negative for stigmata of hemosiderin deposition to indicate previous hemorrhage. Mild prominence of the cerebral sulci and cerebellar fissures collecting atrophy. Proportional ventricular enlargement. Patent basal cisterns. Disproportionate mild volume loss and T2 hyperintense ischemic gliosis at the LEFT middle cerebral artery distribution of the frontal and parietal lobes consistent with sequela of previous infarct. Additional few nonspecific T2 hyperintense foci within the cerebral white matter without mass effect. No extra-axial fluid collection evident. Preserved major intracranial flow- voids. Unremarkable orbital contents. No suspicious calvarial or skull base lesions evident. Mucous retention cyst or polyp at the inferior LEFT maxillary sinus. Unremarkable scalp. IMPRESSION: #. Negative for stigmata of acute or subacute ischemia. #. Relative mild encephalomalacia related to old LEFT MCA distribution infarct involving the posterior LEFT frontal lobe and parietal lobe. #. Mild diffuse atrophy and stigmata of chronic small vessel ischemic disease. <Electronically signed by Surinder Sung MD in [place]> 11/11/17 1632 Dictated By: Surinder Sung MD Dictated Date/Time: 11/11/17 1632 Transcribed Date/Time: 11/11/17 1623 Copy to: CARDIAC ECHO Conclusions There is normal left ventricular systolic function. The estimated ejection fraction is 50-55%. Global left ventricular wall motion and contractility are within normal limits. Mild concentric left ventricular hypertrophy is observed. There is an E to A reversal in the mitral valve flow pattern suggestive of diastolic dysfunction. There is mild to moderate aortic regurgitation. There is mild to moderate mitral regurgitation. There is mild to moderate tricuspid regurgitation. There is evidence of mild to moderate pulmonary hypertension. There is no prior echocardiogram available to compare with at this time. Assess/Plan/Problems-Billing Assessment: This is a 77 year old female patient transferred from a long-term for femur fracture 2/2 unwitnessed fall. PMHx sig for COPD, previous CVAs, DM and HTN that presents with a right sided displaced subcapital femoral neck fracture and multiple masses concerning for malignancy. - Patient Problems (1) Neoplasm Current Visit: Yes Status: Acute Code(s): D49.9 - NEOPLASM OF UNSPECIFIED BEHAVIOR OF UNSPECIFIED SITE SNOMED Code(s): 10675747 Comment: CTA of the neck visualized local mass in the muscularture of the right shouder Given the mass in the psoas, this is highly suspicious for metastatic disease/ sarcoma? CT chest, abdomen and pelvis with contrast shows numerous masses. Appreciate oncology input. 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 Does not explain other masses. FNA of shoulder pending tomorrow. Will likely have no curative treatment options if metastatic cancer confirmed. (2) COPD (chronic obstructive pulmonary disease) Current Visit: Yes Status: Acute Code(s): J44.9 - CHRONIC OBSTRUCTIVE PULMONARY DISEASE, UNSPECIFIED SNOMED Code(s): 79580633 Comment: CXR with COPD changes Allergy to albuterol per record Continue supportive O2 No signs of exacerbation. (3) Atrial fibrillation Current Visit: Yes Status: Acute Code(s): I48.91 - UNSPECIFIED ATRIAL FIBRILLATION SNOMED Code(s): 80891740 Comment: With RVR to the 140s. Converted to NSR this AM with metoprolol, Mag and fluids. Will not anticoagulate due to cancer and limited life expectancy. (4) Femoral neck fracture Current Visit: Yes Status: Acute Code(s): S72.009A - FRACTURE OF UNSP PART OF NECK OF UNSP FEMUR, INIT SNOMED Code(s): 8927819 Comment: Unwitnessed fall, right side fracture CT pelvis is showing psoas mass on the left/contralateral side to the fracture and a sclerotic lesion of the ischial tuberosity Concern for pathologic fracture Patient is NOT medically optimized for surgery. Discussed with daughter and she is not insistant on going forward with surgery Will need to be transferred if surgery indicated. Does not appear to be main source of patient discomfort. (5) History of CVA (cerebrovascular accident) Current Visit: Yes Status: Acute Code(s): Z86.73 - PRSNL HX OF TIA (TIA), AND CEREB INFRC W/O RESID DEFICITS SNOMED Code(s): 677938797 Comment: Per patient's daughter she is sometimes forgetful, however, she can usually converse and is appropriate. Unclear cause of current AMS. No Mass or CVA on MRI. AMS stable from yesterday. Near baseline. (6) Fluid overload Current Visit: Yes Status: Acute Code(s): E87.70 - FLUID OVERLOAD, UNSPECIFIED SNOMED Code(s): 18242329 Comment: JVD resolved. Persistent hypoxia, normal lung exam with no edema. Poor urine output. (7) Hypertension Current Visit: Yes Status: Acute Code(s): I10 - ESSENTIAL (PRIMARY) HYPERTENSION SNOMED Code(s): 42344965 Comment: BP stable (8) DNR (do not resuscitate) Current Visit: Yes Status: Acute Comment: MOLST filled out with daughter and she wants limited medical interventions. Status and Disposition: Remain inpatient.
[2017-11-18] MEDS: HYDROmorphone INJ* 0.5 MG/0.5 ML SYRINGE IV PRN ×2 (05:40→10:16)
[2017-11-18] MEDS: Insulin LISPRO* 1 UNITS UNIT SUBCUT SCH ×4 (08:35→20:47)
[2017-11-18] MEDS: Docusate CAP* 100 MG PO SCH ×2 (08:35→20:27)
[2017-11-18] MEDS: Metoprolol Succinate XL TAB* 50 MG PO SCH (08:35)
[2017-11-18] MEDS: NS 0.9% 1000 ML* 1,000 ML IV SCH ×2 (08:36→22:29)
--- NOTE | 2017-11-18 09:44 | PN ---
Subjective Date of Service: 11/18/17 Interval History: Patient seen and examined at bedside. Denies fever, chills, shortness of breath , chest discomfort, N/V/D. Pt has not had a BM since 11/09. Pt is complaining of left thigh pain. Pt with limited answers to questions, but able to converse with staff today. Pt's daughter would like to pursue the biopsy. Tele: Sinus rhythm to sinus arrhythmia, rate 70-80's Family History: Unchanged from Admission Social History: Unchanged from Admission Past Medical History: Unchanged from Admission Objective Active Medications: Acetaminophen (Tylenol Tab*) 650 mg PO Q4H PRN Reason: FEVER/PAIN Al Hydrox/Mg Hydrox/Simethicone (Maalox Plus*) 30 ml PO Q6H PRN Reason: INDIGESTION Cyclobenzaprine HCl (Flexeril Tab*) 5 mg PO TID PRN Reason: SPASMS Dextrose (D50w Syringe 50 Ml*) 12.5 gm IV PUSH .FOR FS < 60 - SS PRN Reason: FS < 60 Diazepam (Valium Inj (Nf)) 2 mg IV Q8H PRN Reason: Spasm Docusate Sodium (Colace Cap*) 100 mg PO BID MISSY Hydromorphone HCl (Dilaudid Inj*) 1 mg IV Q3H PRN Reason: PAIN Sodium Chloride (Ns 0.9% 1000 Ml*) 1,000 mls @ 75 mls/hr IV PER RATE [facility] Insulin Human Lispro (Humalog*) 0 units SUBCUT ACHS MISSY; Protocol Ipratropium [place] (Atrovent 0.5 Mg Neb.Samara*) 0.5 mg INH Q4H PRN Reason: SOB/ WHEEZING Magnesium Hydroxide (Milk Of Magnesia Liq*) 30 ml PO Q4H PRN Reason: CONSTIPATION Metoprolol Succinate (Toprol Xl Tab*) 50 mg PO DAILY MISSY Ondansetron HCl (Zofran Inj*) 4 mg IV Q4H PRN Reason: NAUSEA/VOMITING Oxycodone/Acetaminophen (Percocet 5/325 Tab*) 1 tab PO Q4H PRN Reason: Pain Vital Signs - 8 hr 11/18/17 11/18/17 11/18/17 01:48 03:15 05:40 Temperature 98.2 F Pulse Rate 70 Respiratory 16 16 24 Rate Blood Pressure 139/50 (mmHg) O2 Sat by Pulse 99 Oximetry 11/18/17 06:30 Temperature Pulse Rate Respiratory 16 Rate Blood Pressure (mmHg) O2 Sat by Pulse Oximetry Oxygen Devices in Use Now: None Appearance: NAD, sitting up in bed Ears/Nose/Mouth/Throat: Mucous Membranes Moist Respiratory: Symmetrical Chest Expansion and Respiratory Effort, Clear to Auscultation Cardiovascular: NL Sounds; No Murmurs; No JVD, - - Heart rate with an occational irregular beat Extremities: No Edema Skin: No Rash or Ulcers Neurological: - - Alert and Oriented to person, confused Lines/Tubes/Other Access: Clean, Dry and Intact [place] - patent, Clean, Dry and Intact Peripheral IV - site benign Nutrition: Taking PO's Result Diagrams: 11/17/17 06:16 11/17/17 06:16 Microbiology and Other Data: Microbiology 11/10/17 15:40 Nasal Screen MRSA (PCR) - Final Nasal Mrsa Not Detected Diagnostic Imaging: Patient Name: DAVE THOMPSON Medical Record#: [id number] Ordering Physician: Gerard Lund MD Acct.#: [id number] : 1940 Age: 77 Sex: F Location: SURGICAL STAY UNIT Exam Date: 11/10/172106 ADM Status: ADM IN Order Information: CT PELVIS W/O Accession Number: [id number] CPT: 27262 INDICATION: Traumatic fracture right hip. COMPARISON: Comparison is made with a prior x-ray study of the right femur and pelvis from November 10, 2017. TECHNIQUE: Contiguous axial sections were obtained through the pelvis without intravenous or oral contrast. Images were reconstructed in the coronal and sagittal planes. FINDINGS: The bones appear osteoporotic. There is a subcapital right femoral neck fracture. The fracture fragments are overriding. There is anterior displacement of the distal fragment relative the proximal fragment and rotation of the femur. There is varus angulation. There is nonspecific sclerotic change in the ischial tuberosity. 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 There is marked enlargement of the left psoas and iliacus muscles consistent with a mass, bulky adenopathy or hematoma. The visualized portion of the small bowel and colon appear nondistended. There is a catheter within the urinary bladder. No free intraperitoneal air or fluid is seen. IMPRESSION: 1. DISPLACED ANGULATED RIGHT SUBCAPITAL FEMORAL NECK FRACTURE. 2. SCLEROTIC LESION WITHIN THE RIGHT ISCHIAL TUBEROSITY. 3. ENLARGEMENT OF THE LEFT PSOAS AND ILIACUS MUSCLES MOST CONSISTENT WITH A MASS , BULKY ADENOPATHY OR HEMATOMA. RECOMMEND A CT OF THE CHEST, ABDOMEN AND PELVIS WITH CONTRAST FOR FURTHER EVALUATION. <Electronically signed by Juan Manuel Linda MD in [place]> 11/11/17714 Dictated By: Juan Manuel Linda MD Dictated Date/Time: 11/11/17714 Transcribed Date/Time: 11/11/17705 Copy to: CTA HEAD and NECK Conclusion: [facility] Patient Name:DAVE THOMPSON MR: [id number] : 1940 LYMPH NODES: There is biapical emphysematous change. BONES AND SOFT TISSUES: No bone or soft tissue abnormalities are noted. CTA HEAD: INTRACRANIAL CIRCULATION: There is no aneurysm, vascular malformation, occlusion , or stenosis of the visualized intracranial circulation. The anterior communicating artery complex is clear. Bilateral posterior communicating arteries are identified. VENOUS CIRCULATION: The venous system is unremarkable. PERFUSION: There is no obvious parenchymal perfusion deficit. HEMORRHAGE/INFARCT: There is no hemorrhage or acute infarct. MASSES/SHIFT: There is no mass or shift. EXTRA-AXIAL SPACES: There are no extra-axial fluid collections. SULCI AND VENTRICLES: The sulci and ventricles are normal in size and position for the patient's stated age. CEREBRUM: There is hypoattenuation of the periventricular and subcortical white matter. BRAINSTEM: There are no focal parenchymal abnormalities. CEREBELLUM: There are no focal parenchymal abnormalities. PARANASAL SINUSES: The paranasal sinuses are clear. ORBITS: The orbits are unremarkable. BONES AND SOFT TISSUE: Degenerative changes are noted of the spine. There are multiple lobulated masses of the right shoulder musculature, and evaluated on the current examination. OTHER: There is no abnormal enhancement. IMPRESSION: 1. NO INTERNAL CAROTID ARTERY STENOSIS BY NASCET CRITERIA. 2. NO ANEURYSM, VASCULAR MALFORMATION, OCCLUSION, OR STENOSIS OF THE VISUALIZED INTRACRANIAL CIRCULATION.. 3. ATHEROSCLEROSIS. 4. PROXIMAL VESSEL ISCHEMIC CHANGE. 5. NO ACUTE INTRACRANIAL PATHOLOGY. 6. MULTIPLE LOBULATED MASSES OF THE MUSCULATURE OF THE RIGHT SHOULDER GIRDLE, EVALUATED ON THE CURRENT EXAMINATION SUSPICIOUS FOR SARCOMA VERSUS METASTATIC DISEASE. MRI BRAIN Patient Name: DAVE THOMPSON Medical Record#: [id number] Ordering Physician: Nany Short NP Acct.#: [id number] : 1940 Age: 77 Sex: F Location: SURGICAL STAY UNIT Exam Date: 11/11/17 1507 ADM Status: ADM IN Order Information: MRI BRAIN W/O Accession Number: [id number] CPT: 10318 Indication: Worsening confusion and weakness. Previous CVAs with residual RIGHT- sided weakness. Comparison: CT and CTA head neck exams of the same date. Technique: [employer] [place] 1.5 Tatiana [id number] with GEM suite. MRI brain without contrast. Report: Diffusion series is negative for acute or subacute ischemia. Susceptibility series is negative for stigmata of hemosiderin deposition to indicate previous hemorrhage. Mild prominence of the cerebral sulci and cerebellar fissures collecting atrophy. Proportional ventricular enlargement. Patent basal cisterns. Disproportionate mild volume loss and T2 hyperintense ischemic gliosis at the LEFT middle cerebral artery distribution of the frontal and parietal lobes consistent with sequela of previous infarct. Additional few nonspecific T2 hyperintense foci within the cerebral white matter without mass effect. No extra-axial fluid collection evident. Preserved major intracranial flow- voids. Unremarkable orbital contents. No suspicious calvarial or skull base lesions evident. Mucous retention cyst or polyp at the inferior LEFT maxillary sinus. Unremarkable scalp. IMPRESSION: #. Negative for stigmata of acute or subacute ischemia. #. Relative mild encephalomalacia related to old LEFT MCA distribution infarct involving the posterior LEFT frontal lobe and parietal lobe. #. Mild diffuse atrophy and stigmata of chronic small vessel ischemic disease. <Electronically signed by Surinder Sung MD in [place]> 11/11/17 1632 Dictated By: Surinder Sung MD Dictated Date/Time: 11/11/17 1632 Transcribed Date/Time: 11/11/17 1623 Copy to: CARDIAC ECHO Conclusions There is normal left ventricular systolic function. The estimated ejection fraction is 50-55%. Global left ventricular wall motion and contractility are within normal limits. Mild concentric left ventricular hypertrophy is observed. There is an E to A reversal in the mitral valve flow pattern suggestive of diastolic dysfunction. There is mild to moderate aortic regurgitation. There is mild to moderate mitral regurgitation. There is mild to moderate tricuspid regurgitation. There is evidence of mild to moderate pulmonary hypertension. There is no prior echocardiogram available to compare with at this time. Assess/Plan/Problems-Billing Assessment: Ms. Thompson is a 77 year old female patient transferred from a custodial for femur fracture 2/2 unwitnessed fall. PMHx sig for COPD, previous CVAs, DM and HTN that presents with a right sided displaced subcapital femoral neck fracture and multiple masses concerning for malignancy. 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 Does not explain other masses - FNA of shoulder pending for today - Oncology consult, appreciate input - Will likely have no curative treatment options if metastatic cancer confirmed per Oncology (2) Femoral neck fracture Code(s): S72.009A - FRACTURE OF UNSP PART OF NECK OF UNSP FEMUR, INIT SNOMED Code(s): 5638846 Comment: - Unwitnessed fall resulting in a right side fracture - CT pelvis is showing psoas mass on the left/contralateral side to the fracture and a sclerotic lesion of the ischial tuberosity - Concern for pathologic fracture - Discussed with daughter and she would like to hold on surgery at this time, will need to be transferred if surgery indicated - Continue pain management (3) Atrial fibrillation Code(s): I48.91 - UNSPECIFIED ATRIAL FIBRILLATION SNOMED Code(s): 89081098 Comment: - With RVR to the 140s, now converted to NSR - Continue metoprolol - No anticoagulation due to cancer and limited life expectancy (4) Fluid overload Code(s): E87.70 - FLUID OVERLOAD, UNSPECIFIED SNOMED Code(s): 59368779 Comment: - JVD resolved, persistent hypoxia - Normal lung exam with no edema - Poor urine output (5) Electrolyte abnormality Code(s): E87.8 - OTH DISORDERS OF ELECTROLYTE AND FLUID BALANCE, NEC SNOMED Code(s): 916285189 Comment: - Hypokalemia. Received replacement, will recheck labs in the AM - Hypomagnesemia. Resolved after replacement (6) Constipation Code(s): K59.00 - CONSTIPATION, UNSPECIFIED SNOMED Code(s): 20055179 Comment: - No BM since 11/08 - Will start bowel regimen (7) COPD (chronic obstructive pulmonary disease) Code(s): J44.9 - CHRONIC OBSTRUCTIVE PULMONARY DISEASE, UNSPECIFIED SNOMED Code(s): 94840101 Comment: - No signs of acute exacerbation at this time - CXR with COPD changes - Allergy to albuterol per record, continue supportive O2 (8) Hypertension Code(s): I10 - ESSENTIAL (PRIMARY) HYPERTENSION SNOMED Code(s): 66039949 Comment: - Normotensive, SBP 120-150's - Continue metoprolol (9) Diabetes Code(s): E11.9 - TYPE 2 DIABETES MELLITUS WITHOUT COMPLICATIONS SNOMED Code(s) : 60980279 Comment: - Glucose 100-180's - Continue Lispro SS (10) History of CVA (cerebrovascular accident) Code(s): Z86.73 - PRSNL HX OF TIA (TIA), AND CEREB INFRC W/O RESID DEFICITS SNOMED Code(s): 495844347 Comment: - AMS stable, near baseline - Per patient's daughter she is sometimes forgetful, however, she can usually converse and is appropriate - Unclear cause of current AMS. No Mass or CVA on MRI (11) DVT prophylaxis Code(s): GIC6656 - SNOMED Code(s): 374254337 Comment: - SCDs (12) DNR (do not resuscitate) Comment: MOLST filled out with daughter and she wants limited medical interventions. Status and Disposition: Inpatient. Plan to discharge back to [facility] once medically stable.
[2017-11-18] MEDS ORDERED: Bisacodyl SUPP* 10 MG SUPP PR PRN (10:10)
[2017-11-18] MEDS: Acetaminophen TAB* 325 MG PO SCH ×2 (13:08→18:19)
[2017-11-18] MEDS: Polyethylene Glycol 3350* 17 GM PACKET PO PRN (13:08)
--- NOTE | 2017-11-18 14:23 | RAD ---
Indication: Soft tissue mass at the RIGHT shoulder. Ultrasound requested to assess for feasibility of ultrasound-guided biopsy. Comparison: November 11, 2017 CT.. Technique: Limited ultrasound of the superior posterior aspect RIGHT shoulder performed. Report: Positioning limited due to RIGHT femur fracture. Lobular margined 5.4 3.4 x 4.0 cm mass involving the posterior RIGHT deltoid musculature with adjacent satellite similar echogenicity nodules visualized corresponding with prior CT finding. IMPRESSION: #. While positioning is difficult due to the RIGHT femoral neck fracture of the mass lesion at the RIGHT shoulder is visible and amenable to ultrasound-guided fine-needle aspiration.
[2017-11-18] MEDS: Cyclobenzaprine TAB* 10 MG PO PRN (20:27)
[2017-11-18] MEDS: oxyCODONE TAB* 5 MG TAB PO PRN (20:28)
[2017-11-19] MEDS: Acetaminophen TAB* 325 MG PO SCH ×5 (00:22→23:43)
[2017-11-19] MEDS: HYDROmorphone INJ* 0.5 MG/0.5 ML SYRINGE IV PRN ×3 (01:36→18:27)
[2017-11-19 06:24] LABS: EGFR Non-African American 215.2 (>60)
[2017-11-19] MEDS: Insulin LISPRO* 1 UNITS UNIT SUBCUT SCH ×4 (08:17→22:15)
[2017-11-19] MEDS: Metoprolol Succinate XL TAB* 50 MG PO SCH ×2 (10:19→14:35)
[2017-11-19] MEDS: Docusate CAP* 100 MG PO SCH ×2 (10:20→23:43)
--- NOTE | 2017-11-19 11:32 | PN ---
Subjective Date of Service: 11/19/17 Interval History: Patient seen and examined at bedside. Denies fever, chills, shortness of breath , chest discomfort, N/V/D. Pt denies pain at this time. Pt is slightly lethargic but will open eyes and answer some questions. Per NSG staff Pt declined her metoprolol this AM. Tele: Sinus melvina to Afib with RVR, rate 50-140's. Pt noted to change into what appears to be afib ~ 1120 this AM. Family History: Unchanged from Admission Social History: Unchanged from Admission Past Medical History: Unchanged from Admission Objective Active Medications: Acetaminophen (Tylenol Tab*) 975 mg PO Q6H MISSY Al Hydrox/Mg Hydrox/Simethicone (Maalox Plus*) 30 ml PO Q6H PRN Reason: INDIGESTION Bisacodyl (Dulcolax Supp*) 10 mg CO DAILY PRN Reason: CONSTIPATION Cyclobenzaprine HCl (Flexeril Tab*) 5 mg PO TID PRN Reason: SPASMS Dextrose (D50w Syringe 50 Ml*) 12.5 gm IV PUSH .FOR FS < 60 - SS PRN Reason: FS < 60 Diazepam (Valium Inj (Nf)) 2 mg IV Q8H PRN Reason: Spasm Docusate Sodium (Colace Cap*) 100 mg PO BID MISSY Hydromorphone HCl (Dilaudid Inj*) 1 mg IV Q3H PRN Reason: PAIN - UNCONTROLLED Sodium Chloride (Ns 0.9% 1000 Ml*) 1,000 mls @ 75 mls/hr IV PER RATE [facility] Insulin Human Lispro (Humalog*) 0 units SUBCUT ACHS MISSY; Protocol Ipratropium [place] (Atrovent 0.5 Mg Neb.Samara*) 0.5 mg INH Q4H PRN Reason: SOB/ WHEEZING Magnesium Hydroxide (Milk Of Magnesia Liq*) 30 ml PO Q4H PRN Reason: CONSTIPATION Metoprolol Succinate (Toprol Xl Tab*) 50 mg PO DAILY MISSY Ondansetron HCl (Zofran Inj*) 4 mg IV Q4H PRN Reason: NAUSEA/VOMITING Oxycodone HCl (Roxycodone Tab*) 5 mg PO Q6H PRN Reason: PAIN - SEVERE Polyethylene Glycol/Electrolytes (Miralax*) 17 gm PO DAILY PRN Reason: CONSTIPATION Vital Signs - 8 hr 11/19/17 04:04 Temperature 98.1 F Pulse Rate 59 Respiratory 14 Rate Blood Pressure 127/48 (mmHg) O2 Sat by Pulse 93 Oximetry Oxygen Devices in Use Now: None Appearance: NAD, laying in bed with eyes closed Ears/Nose/Mouth/Throat: Mucous Membranes Moist Respiratory: Symmetrical Chest Expansion and Respiratory Effort, Clear to Auscultation Cardiovascular: NL Sounds; No Murmurs; No JVD, - - Heart rate irregular, tachy Abdominal: NL Sounds; No Tenderness; No Distention Extremities: No Edema Skin: No Rash or Ulcers Neurological: Alert and Oriented x 3, NL Muscle Strength and Tone Lines/Tubes/Other Access: Clean, Dry and Intact Peripheral IV - site benign Nutrition: Taking PO's Result Diagrams: 11/17/17 06:16 11/19/17 05:40 Microbiology and Other Data: Microbiology 11/10/17 15:40 Nasal Screen MRSA (PCR) - Final Nasal Mrsa Not Detected Diagnostic Imagin11/10/172106 - CT PELVIS W/O IMPRESSION: 1. DISPLACED ANGULATED RIGHT SUBCAPITAL FEMORAL NECK FRACTURE. 2. SCLEROTIC LESION WITHIN THE RIGHT ISCHIAL TUBEROSITY. 3. ENLARGEMENT OF THE LEFT PSOAS AND ILIACUS MUSCLES MOST CONSISTENT WITH A MASS , BULKY ADENOPATHY OR HEMATOMA. RECOMMEND A CT OF THE CHEST, ABDOMEN AND PELVIS WITH CONTRAST FOR FURTHER EVALUATION. 11/11/17 1130 - CTA HEAD IMPRESSION: 1. NO INTERNAL CAROTID ARTERY STENOSIS BY NASCET CRITERIA. 2. NO ANEURYSM, VASCULAR MALFORMATION, OCCLUSION, OR STENOSIS OF THE VISUALIZED INTRACRANIAL CIRCULATION.. 3. ATHEROSCLEROSIS. 4. PROXIMAL VESSEL ISCHEMIC CHANGE. 5. NO ACUTE INTRACRANIAL PATHOLOGY. 6. MULTIPLE LOBULATED MASSES OF THE MUSCULATURE OF THE RIGHT SHOULDER GIRDLE, EVALUATED ON THE CURRENT EXAMINATION SUSPICIOUS FOR SARCOMA VERSUS METASTATIC DISEASE. 11/11/17 7127 - MRI BRAIN W/O IMPRESSION: 1. Negative for stigmata of acute or subacute ischemia. 2. Relative mild encephalomalacia related to old LEFT MCA distribution infarct involving the posterior LEFT frontal lobe and parietal lobe. 3. Mild diffuse atrophy and stigmata of chronic small vessel ischemic disease. 11/11/17 - Transthoracic ECHO Conclusions There is normal left ventricular systolic function. The estimated ejection fraction is 50-55%. Global left ventricular wall motion and contractility are within normal limits. Mild concentric left ventricular hypertrophy is observed. There is an E to A reversal in the mitral valve flow pattern suggestive of diastolic dysfunction. There is mild to moderate aortic regurgitation. There is mild to moderate mitral regurgitation. There is mild to moderate tricuspid regurgitation. There is evidence of mild to moderate pulmonary hypertension. There is no prior echocardiogram available to compare with at this time. Assess/Plan/Problems-Billing Assessment: Ms. Torres is a 77 year old female patient transferred from a prison for femur fracture 2/2 unwitnessed fall. PMHx sig for COPD, previous CVAs, DM and HTN that presents with a right sided displaced subcapital femoral neck fracture and multiple masses concerning for malignancy. 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 Does not explain other masses - FNA of shoulder pending for today - Oncology consult, appreciate input - Will likely have no curative treatment options if metastatic cancer confirmed per Oncology (2) Femoral neck fracture Code(s): S72.009A - FRACTURE OF UNSP PART OF NECK OF UNSP FEMUR, INIT SNOMED Code(s): 9366996 Comment: - Unwitnessed fall resulting in a right side fracture - CT pelvis is showing psoas mass on the left/contralateral side to the fracture and a sclerotic lesion of the ischial tuberosity - Concern for pathologic fracture - Discussed with daughter and she would like to hold on surgery at this time, will need to be transferred if surgery indicated - Continue pain management (3) Atrial fibrillation Code(s): I48.91 - UNSPECIFIED ATRIAL FIBRILLATION SNOMED Code(s): 79074815 Comment: - RVR to the 140s, after Pt declined AM metoprolol - Will give a 1 time dose of IV metoprolol at this time - Continue metoprolol - No anticoagulation due to cancer and limited life expectancy (4) Fluid overload Code(s): E87.70 - FLUID OVERLOAD, UNSPECIFIED SNOMED Code(s): 90651249 Comment: - JVD resolved, persistent hypoxia - Normal lung exam with no edema - Urine output decreased, but improving (5) Electrolyte abnormality Code(s): E87.8 - OTH DISORDERS OF ELECTROLYTE AND FLUID BALANCE, NEC SNOMED Code(s): 389398498 Comment: - Hypokalemia. Resolved but 3.5 and with HX Afib will give additional replacement today - Hypomagnesemia. Resolved after replacement (6) Constipation Code(s): K59.00 - CONSTIPATION, UNSPECIFIED SNOMED Code(s): 59003022 Comment: - No BM since 11/08 - Continue bowel regimen (7) COPD (chronic obstructive pulmonary disease) Code(s): J44.9 - CHRONIC OBSTRUCTIVE PULMONARY DISEASE, UNSPECIFIED SNOMED Code(s): 78644593 Comment: - No signs of acute exacerbation at this time - CXR with COPD changes - Allergy to albuterol per record, continue supportive O2 (8) Hypertension Code(s): I10 - ESSENTIAL (PRIMARY) HYPERTENSION SNOMED Code(s): 04394370 Comment: - Normotensive, SBP 110-140's - Continue metoprolol (9) Diabetes Code(s): E11.9 - TYPE 2 DIABETES MELLITUS WITHOUT COMPLICATIONS SNOMED Code(s) : 93540069 Comment: - Glucose 100-180's - Continue Lispro SS (10) History of CVA (cerebrovascular accident) Code(s): Z86.73 - PRSNL HX OF TIA (TIA), AND CEREB INFRC W/O RESID DEFICITS SNOMED Code(s): 283233002 Comment: - AMS stable, near baseline - Per patient's daughter she is sometimes forgetful, however, she can usually converse and is appropriate - Unclear cause of current AMS. No Mass or CVA on MRI (11) DVT prophylaxis Code(s): LVM7478 - SNOMED Code(s): 719535108 Comment: - SCDs (12) DNR (do not resuscitate) Comment: MOLST filled out with daughter and she wants limited medical interventions. Status and Disposition: Inpatient. Plan to discharge back to [facility] once medically stable.
[2017-11-19] MEDS ORDERED: Metoprolol Tartrate IV* 1 MG/ML 5 ML VIAL IV ONE (11:45)
[2017-11-19] MEDS ORDERED: Metoprolol Tartrate IV* 1 MG/ML 5 ML VIAL ONE (11:48)
[2017-11-19] MEDS: KCL 20 MEQ/100 ML IVPREMIX* 20 MEQ/100 ML BAG IV SCH ×2 (13:29→18:51)
--- NOTE | 2017-11-19 14:29 | RAD ---
INDICATION: Large nodular morphology mass involving the deltoid musculature of the RIGHT shoulder. Recent biopsy of verenice mass at the LEFT axilla remarkable for low-grade lymphoma. COMPARISON: November 11, 2017 CT and November 18, 2017 ultrasound. Written informed consent obtained from the patient's daughter by Telephone. Timeout performed. PROCEDURE: Following routine aseptic preparation for the dorsal aspect of the shoulder the soft tissues superficial to the lobular margined heterogeneously hypoechoic mass involving the deltoid muscle were anesthetized with 5 mL 1% lidocaine. 3 fine-needle aspiration passes with 25-gauge 1.5 inch needles were obtained. Samples deemed sufficient by pathology. Post biopsy imaging is negative for appreciable hematoma or other complication. Procedure reasonably tolerated with pain/discomfort related to positioning with known RIGHT hip fracture. IMPRESSION: #. Successful ultrasound-guided fine-needle aspiration soft tissue mass at the RIGHT shoulder.
--- NOTE | 2017-11-19 17:19 | PN ---
Progress Note - Progress Note Date of Service: 11/19/17 SOAP: Subjective: [Attempted to see patient, she was down with IR for FNA. ] Assessment/Plan: [77 yo female with what appears to be metastatic disease. L axillary FNA demonstrated low grade lymphoma which is unlikely to have caused the erosive mass in the R shoulder or pathologic fracture of the hip. Unfortunately, FNA of R shoulder mass was delayed for unclear reasons earlier this week, but performed successfully today. Pathology is pending and will help to determine ultimate disposition.]
[2017-11-19] MEDS: oxyCODONE TAB* 5 MG TAB PO PRN (23:44)
[2017-11-20] MEDS: Acetaminophen TAB* 325 MG PO SCH ×4 (05:37→19:06)
[2017-11-20] MEDS: Cyclobenzaprine TAB* 10 MG PO PRN (05:38)
[2017-11-20] MEDS: Insulin LISPRO* 1 UNITS UNIT SUBCUT SCH ×4 (08:18→20:53)
[2017-11-20] MEDS: HYDROmorphone INJ* 0.5 MG/0.5 ML SYRINGE IV PRN ×3 (09:16→20:53)
--- NOTE | 2017-11-20 10:09 | PN ---
Subjective Date of Service: 11/20/17 Interval History: Patient seen and examined at bedside. Denies fever, chills, shortness of breath , chest discomfort, N/V/D. Pt states that she has right LE pain, but it isn't bad if she isn't moving the leg. This morning she is more awake and interactive then she has been for several days. Pt agrees to take bowel medications today. Per NSG staff Pt is often refusing medications. Tele: Sinus rhythm with PACs, rate 70's Family History: Unchanged from Admission Social History: Unchanged from Admission Past Medical History: Unchanged from Admission Objective Active Medications: Acetaminophen (Tylenol Tab*) 975 mg PO Q6H MISSY Al Hydrox/Mg Hydrox/Simethicone (Maalox Plus*) 30 ml PO Q6H PRN Reason: INDIGESTION Bisacodyl (Dulcolax Supp*) 10 mg MO DAILY PRN Reason: CONSTIPATION Cyclobenzaprine HCl (Flexeril Tab*) 5 mg PO TID PRN Reason: SPASMS Dextrose (D50w Syringe 50 Ml*) 12.5 gm IV PUSH .FOR FS < 60 - SS PRN Reason: FS < 60 Docusate Sodium (Colace Cap*) 100 mg PO BID MISSY Hydromorphone HCl (Dilaudid Inj*) 1 mg IV Q3H PRN Reason: PAIN - UNCONTROLLED Insulin Human Lispro (Humalog*) 0 units SUBCUT ACHS MISSY; Protocol Ipratropium [place] (Atrovent 0.5 Mg Neb.Samara*) 0.5 mg INH Q4H PRN Reason: SOB/ WHEEZING Magnesium Hydroxide (Milk Of Magnesia Liq*) 30 ml PO Q4H PRN Reason: CONSTIPATION Metoprolol Succinate (Toprol Xl Tab*) 50 mg PO DAILY MISSY Ondansetron HCl (Zofran Inj*) 4 mg IV Q4H PRN Reason: NAUSEA/VOMITING Oxycodone HCl (Roxycodone Tab*) 5 mg PO Q6H PRN Reason: PAIN - SEVERE Polyethylene Glycol/Electrolytes (Miralax*) 17 gm PO DAILY PRN Reason: CONSTIPATION Vital Signs - 8 hr 11/20/17 11/20/17 11/20/17 03:48 03:52 08:00 Temperature 97.4 F Pulse Rate 67 Respiratory 16 20 16 Rate Blood Pressure 132/51 (mmHg) O2 Sat by Pulse 100 Oximetry 11/20/17 11/20/17 11/20/17 08:01 08:06 09:16 Temperature 98.7 F Pulse Rate 73 82 Respiratory 16 14 16 Rate Blood Pressure 137/55 (mmHg) O2 Sat by Pulse 93 91 Oximetry Oxygen Devices in Use Now: None Appearance: NAD, sitting up in bed Ears/Nose/Mouth/Throat: Mucous Membranes Moist Respiratory: Symmetrical Chest Expansion and Respiratory Effort, Clear to Auscultation Cardiovascular: NL Sounds; No Murmurs; No JVD, RRR Abdominal: NL Sounds; No Tenderness; No Distention Extremities: No Edema Skin: No Rash or Ulcers Neurological: - - Alert and Oriented to Person Lines/Tubes/Other Access: Clean, Dry and Intact [place] - patent, Clean, Dry and Intact Peripheral IV - site benign Nutrition: Taking PO's Result Diagrams: 11/17/17 06:16 11/19/17 05:40 Microbiology and Other Data: Microbiology 11/10/17 15:40 Nasal Screen MRSA (PCR) - Final Nasal Mrsa Not Detected Diagnostic Imagin11/10/172106 - CT PELVIS W/O IMPRESSION: 1. DISPLACED ANGULATED RIGHT SUBCAPITAL FEMORAL NECK FRACTURE. 2. SCLEROTIC LESION WITHIN THE RIGHT ISCHIAL TUBEROSITY. 3. ENLARGEMENT OF THE LEFT PSOAS AND ILIACUS MUSCLES MOST CONSISTENT WITH A MASS , BULKY ADENOPATHY OR HEMATOMA. RECOMMEND A CT OF THE CHEST, ABDOMEN AND PELVIS WITH CONTRAST FOR FURTHER EVALUATION. 11/11/17 1130 - CTA HEAD IMPRESSION: 1. NO INTERNAL CAROTID ARTERY STENOSIS BY NASCET CRITERIA. 2. NO ANEURYSM, VASCULAR MALFORMATION, OCCLUSION, OR STENOSIS OF THE VISUALIZED INTRACRANIAL CIRCULATION.. 3. ATHEROSCLEROSIS. 4. PROXIMAL VESSEL ISCHEMIC CHANGE. 5. NO ACUTE INTRACRANIAL PATHOLOGY. 6. MULTIPLE LOBULATED MASSES OF THE MUSCULATURE OF THE RIGHT SHOULDER GIRDLE, EVALUATED ON THE CURRENT EXAMINATION SUSPICIOUS FOR SARCOMA VERSUS METASTATIC DISEASE. 11/11/17 4917 - MRI BRAIN W/O IMPRESSION: 1. Negative for stigmata of acute or subacute ischemia. 2. Relative mild encephalomalacia related to old LEFT MCA distribution infarct involving the posterior LEFT frontal lobe and parietal lobe. 3. Mild diffuse atrophy and stigmata of chronic small vessel ischemic disease. 11/11/17 - TRANSTHORACIC ECHO Conclusions There is normal left ventricular systolic function. The estimated ejection fraction is 50-55%. Global left ventricular wall motion and contractility are within normal limits. Mild concentric left ventricular hypertrophy is observed. There is an E to A reversal in the mitral valve flow pattern suggestive of diastolic dysfunction. There is mild to moderate aortic regurgitation. There is mild to moderate mitral regurgitation. There is mild to moderate tricuspid regurgitation. There is evidence of mild to moderate pulmonary hypertension. There is no prior echocardiogram available to compare with at this time. Assess/Plan/Problems-Billing Assessment: Ms. Torres is a 77 year old female patient transferred from a halfway for femur fracture 2/2 unwitnessed fall. PMHx sig for COPD, previous CVAs, DM and HTN that presents with a right sided displaced subcapital femoral neck fracture and multiple masses concerning for malignancy. - Patient Problems (1) Neoplasm Code(s): D49.9 - NEOPLASM OF UNSPECIFIED BEHAVIOR OF UNSPECIFIED SITE SNOMED Code(s): 02638342 Comment: - Given the mass in the psoas, this is highly suspicious for metastatic disease/ sarcoma - CTA of the neck visualized local mass in the muscularture of the right shouder - CT chest, abdomen and pelvis with contrast shows numerous masses - FNA of left axillary mass shows low grade lymphoma. Does not explain other masses - FNA of shoulder, pathology pending - Oncology consult, appreciate input - Will likely have no curative treatment options if metastatic cancer confirmed per Oncology (2) Femoral neck fracture Code(s): S72.009A - FRACTURE OF UNSP PART OF NECK OF UNSP FEMUR, INIT SNOMED Code(s): 0432718 Comment: - Unwitnessed fall resulting in a right side fracture - CT pelvis is showing psoas mass on the left/contralateral side to the fracture and a sclerotic lesion of the ischial tuberosity - Concern for pathologic fracture - Discussed with daughter and she would like to hold on surgery at this time, will need to be transferred if surgery indicated - Continue pain management (3) Atrial fibrillation Code(s): I48.91 - UNSPECIFIED ATRIAL FIBRILLATION SNOMED Code(s): 03722953 Comment: - Episode of RVR yesterday, resolved after a 1 time dose of IV metoprolol and AM metoprolol - Continue metoprolol - No anticoagulation due to cancer and limited life expectancy (4) Fluid overload Code(s): E87.70 - FLUID OVERLOAD, UNSPECIFIED SNOMED Code(s): 08607953 Comment: - JVD resolved, persistent hypoxia - Normal lung exam with no edema - Urine output decreased, but improving (5) Electrolyte abnormality Code(s): E87.8 - OTH DISORDERS OF ELECTROLYTE AND FLUID BALANCE, NEC SNOMED Code(s): 191590613 Comment: - Hypokalemia. AM labs pending - Hypomagnesemia. AM labs pending (6) Constipation Code(s): K59.00 - CONSTIPATION, UNSPECIFIED SNOMED Code(s): 05353839 Comment: - No BM since 11/08 - Continue bowel regimen (7) COPD (chronic obstructive pulmonary disease) Code(s): J44.9 - CHRONIC OBSTRUCTIVE PULMONARY DISEASE, UNSPECIFIED SNOMED Code(s): 65825731 Comment: - With acute hypoxic respiratory failure, resolved - No signs of acute exacerbation at this time - CXR with COPD changes - Allergy to albuterol per record, continue supplemental O2 PRN (8) Hypertension Code(s): I10 - ESSENTIAL (PRIMARY) HYPERTENSION SNOMED Code(s): 41164363 Comment: - Normotensive, SBP 100-130's - Continue metoprolol (9) Diabetes Code(s): E11.9 - TYPE 2 DIABETES MELLITUS WITHOUT COMPLICATIONS SNOMED Code(s) : 52285154 Comment: - Glucose 100-200's - Continue Lispro SS (10) History of CVA (cerebrovascular accident) Code(s): Z86.73 - PRSNL HX OF TIA (TIA), AND CEREB INFRC W/O RESID DEFICITS SNOMED Code(s): 379086962 Comment: - AMS stable, near baseline - Per patient's daughter she is sometimes forgetful, however, she can usually converse and is appropriate - Unclear cause of current AMS. No Mass or CVA on MRI (11) DVT prophylaxis Code(s): PBI4282 - SNOMED Code(s): 463930676 Comment: - SCDs (12) DNR (do not resuscitate) Comment: MOLST filled out with daughter and she wants limited medical interventions. Status and Disposition: Inpatient. Plan to discharge back to [facility] once medically stable.
[2017-11-20] MEDS: Metoprolol Succinate XL TAB* 50 MG PO SCH (10:22)
[2017-11-20] MEDS: Docusate CAP* 100 MG PO SCH ×2 (10:22→20:56)
[2017-11-20] MEDS: Magnesium Hydroxide LIQ* 30 ML UDC PO PRN (10:24)
[2017-11-20] MEDS: Polyethylene Glycol 3350* 17 GM PACKET PO PRN (17:02)
[2017-11-20] MEDS: oxyCODONE TAB* 5 MG TAB PO PRN (19:06)
[2017-11-21] MEDS: Acetaminophen TAB* 325 MG PO SCH ×4 (00:30→19:50)
[2017-11-21] MEDS: HYDROmorphone INJ* 0.5 MG/0.5 ML SYRINGE IV PRN ×2 (03:40→20:36)
[2017-11-21 06:02] LABS: ABS Basophils 0.1 10^3/ul (0-0.2); ABS Eosinophils 0.2 10^3/ul (0-0.6); ABS Lymphocytes 0.6 10^3/ul (1.0-4.8); ABS Monocytes 0.6 10^3/ul (0-0.8); ABS Neutrophils 9.7 10^3/ul (1.5-7.7); ABS Nucleated RBC 0 10^3/ul; Eosinophil % 1.6 % (0-6); Hematocrit 37 % (35-47); Hemoglobin 11.9 g/dl (12.0-16.0); Lymphocyte % 5.5 % (25-47); Mean Corpuscular HGB Conc 32 g/dl (31-36); Mean Corpuscular Hemoglobin 28 pg (27-31); Mean Corpuscular Volume 86 fL (80-97); Mean Platelet Volume 7.6 um3 (7.4-10.4); Nucleated Red Blood Cells % 0.1; Platelet Count 350 10^3/ul (150-450); Red Blood Count 4.34 10^6/ul (4.00-5.40); Red Cell Distribution Width 16 % (10.5-15); White Blood Count 11.1 10^3/ul (3.5-10.8)
[2017-11-21 06:23] LABS: EGFR Non-African American 215.2 (>60)
--- NOTE | 2017-11-21 10:16 | PN ---
Subjective Date of Service: 11/21/17 Interval History: Patient seen and examined at bedside. Denies fever, chills, shortness of breath , chest discomfort, N/V/D. Pt states that her right LE pain is improving and mostly controlled if her leg isn't moved. Pt is anxious to return home to [facility]. Pt states that he is able to wiggle her right toes, but states that she doesn't want to at this time. Tele: Sinus rhythm, rate 60-80's. Pt noted to have an occasional sinus arrhythmia Family History: Unchanged from Admission Social History: Unchanged from Admission Past Medical History: Unchanged from Admission Objective Active Medications: Acetaminophen (Tylenol Tab*) 975 mg PO Q6H MISSY Al Hydrox/Mg Hydrox/Simethicone (Maalox Plus*) 30 ml PO Q6H PRN Reason: INDIGESTION Bisacodyl (Dulcolax Supp*) 10 mg [place] DAILY PRN Reason: CONSTIPATION Cyclobenzaprine HCl (Flexeril Tab*) 5 mg PO TID PRN Reason: SPASMS Dextrose (D50w Syringe 50 Ml*) 12.5 gm IV PUSH .FOR FS < 60 - SS PRN Reason: FS < 60 Docusate Sodium (Colace Cap*) 100 mg PO BID MISSY Hydromorphone HCl (Dilaudid Inj*) 1 mg IV Q3H PRN Reason: PAIN - UNCONTROLLED Insulin Human Lispro (Humalog*) 0 units SUBCUT ACHS MISSY; Protocol Ipratropium [place] (Atrovent 0.5 Mg Neb.Samara*) 0.5 mg INH Q4H PRN Reason: SOB/ WHEEZING Magnesium Hydroxide (Milk Of Magnesia Liq*) 30 ml PO Q4H PRN Reason: CONSTIPATION Metoprolol Succinate (Toprol Xl Tab*) 50 mg PO DAILY MISSY Ondansetron HCl (Zofran Inj*) 4 mg IV Q4H PRN Reason: NAUSEA/VOMITING Oxycodone HCl (Roxycodone Tab*) 5 mg PO Q6H PRN Reason: PAIN - SEVERE Polyethylene Glycol/Electrolytes (Miralax*) 17 gm PO DAILY PRN Reason: CONSTIPATION Vital Signs - 8 hr 11/21/17 11/21/17 11/21/17 02:20 03:40 03:45 Temperature 99.0 F Pulse Rate 72 64 Respiratory 14 16 24 Rate Blood Pressure 127/52 (mmHg) O2 Sat by Pulse 94 95 Oximetry 11/21/17 05:21 Temperature Pulse Rate Respiratory 18 Rate Blood Pressure (mmHg) O2 Sat by Pulse Oximetry Oxygen Devices in Use Now: None Appearance: NAD, laying in bed Ears/Nose/Mouth/Throat: Mucous Membranes Moist Respiratory: Symmetrical Chest Expansion and Respiratory Effort, Clear to Auscultation Cardiovascular: NL Sounds; No Murmurs; No JVD, RRR Abdominal: NL Sounds; No Tenderness; No Distention Extremities: No Edema Skin: No Rash or Ulcers, - - Right LE bent up at hip and leg externally rotated. Right foot slightly cool to the touch Neurological: - - Alert and Oriented to Person, confused. Lines/Tubes/Other Access: Clean, Dry and Intact Peripheral IV - site benign Nutrition: Taking PO's Result Diagrams: 11/21/17 05:35 11/21/17 05:35 Microbiology and Other Data: Microbiology 11/10/17 15:40 Nasal Screen MRSA (PCR) - Final Nasal Mrsa Not Detected Diagnostic Imagin11/10/172106 - CT PELVIS W/O IMPRESSION: 1. DISPLACED ANGULATED RIGHT SUBCAPITAL FEMORAL NECK FRACTURE. 2. SCLEROTIC LESION WITHIN THE RIGHT ISCHIAL TUBEROSITY. 3. ENLARGEMENT OF THE LEFT PSOAS AND ILIACUS MUSCLES MOST CONSISTENT WITH A MASS , BULKY ADENOPATHY OR HEMATOMA. RECOMMEND A CT OF THE CHEST, ABDOMEN AND PELVIS WITH CONTRAST FOR FURTHER EVALUATION. 11/11/17 1130 - CTA HEAD IMPRESSION: 1. NO INTERNAL CAROTID ARTERY STENOSIS BY NASCET CRITERIA. 2. NO ANEURYSM, VASCULAR MALFORMATION, OCCLUSION, OR STENOSIS OF THE VISUALIZED INTRACRANIAL CIRCULATION.. 3. ATHEROSCLEROSIS. 4. PROXIMAL VESSEL ISCHEMIC CHANGE. 5. NO ACUTE INTRACRANIAL PATHOLOGY. 6. MULTIPLE LOBULATED MASSES OF THE MUSCULATURE OF THE RIGHT SHOULDER GIRDLE, EVALUATED ON THE CURRENT EXAMINATION SUSPICIOUS FOR SARCOMA VERSUS METASTATIC DISEASE. 11/11/17 5327 - MRI BRAIN W/O IMPRESSION: 1. Negative for stigmata of acute or subacute ischemia. 2. Relative mild encephalomalacia related to old LEFT MCA distribution infarct involving the posterior LEFT frontal lobe and parietal lobe. 3. Mild diffuse atrophy and stigmata of chronic small vessel ischemic disease. 11/11/17 - TRANSTHORACIC ECHO Conclusions There is normal left ventricular systolic function. The estimated ejection fraction is 50-55%. Global left ventricular wall motion and contractility are within normal limits. Mild concentric left ventricular hypertrophy is observed. There is an E to A reversal in the mitral valve flow pattern suggestive of diastolic dysfunction. There is mild to moderate aortic regurgitation. There is mild to moderate mitral regurgitation. There is mild to moderate tricuspid regurgitation. There is evidence of mild to moderate pulmonary hypertension. There is no prior echocardiogram available to compare with at this time. Assess/Plan/Problems-Billing Assessment: Ms. Torres is a 77 year old female [facility] 2[facility]2 unwitnessed fall. PMHx sig for COPD, previous CVAs, DM and HTN that presents with a right sided displaced subcapital femoral neck fracture and multiple masses concerning for malignancy. - Patient Problems (1) Neoplasm Code(s): D49.9 - NEOPLASM OF UNSPECIFIED BEHAVIOR OF UNSPECIFIED SITE SNOMED Code(s): 38006392 Comment: - Given the mass in the psoas, this is highly suspicious for metastatic disease/ sarcoma - CTA of the neck visualized local mass in the muscularture of the right shouder - CT chest, abdomen and pelvis with contrast shows numerous masses - FNA of left axillary mass shows low grade lymphoma. Does not explain other masses - FNA of shoulder, pathology pending - Oncology consult, appreciate input - Will likely have no curative treatment options if metastatic cancer confirmed per Oncology (2) Femoral neck fracture Code(s): S72.009A - FRACTURE OF UNSP PART OF NECK OF UNSP FEMUR, INIT SNOMED Code(s): 2916093 Comment: - Unwitnessed fall resulting in a right side fracture - CT pelvis is showing psoas mass on the left/contralateral side to the fracture and a sclerotic lesion of the ischial tuberosity - Concern for pathologic fracture - Discussed with daughter and she would like to hold on surgery at this time, will need to be transferred if surgery indicated - Continue pain management (3) Atrial fibrillation Code(s): I48.91 - UNSPECIFIED ATRIAL FIBRILLATION SNOMED Code(s): 38005047 Comment: - Sinus rhythm at this time - Continue metoprolol - No anticoagulation due to cancer and limited life expectancy (4) Fluid overload Code(s): E87.70 - FLUID OVERLOAD, UNSPECIFIED SNOMED Code(s): 09715374 Comment: - JVD resolved, hypoxia resolved - Normal lung exam with no edema (5) Electrolyte abnormality Code(s): E87.8 - OTH DISORDERS OF ELECTROLYTE AND FLUID BALANCE, NEC SNOMED Code(s): 541376977 Comment: - Hypokalemia. AM labs pending - Hypomagnesemia. AM labs pending (6) Constipation Code(s): K59.00 - CONSTIPATION, UNSPECIFIED SNOMED Code(s): 28832693 Comment: - No BM since 11/08 - Continue bowel regimen (7) COPD (chronic obstructive pulmonary disease) Code(s): J44.9 - CHRONIC OBSTRUCTIVE PULMONARY DISEASE, UNSPECIFIED SNOMED Code(s): 59181279 Comment: - With acute hypoxic respiratory failure, resolved - No signs of acute exacerbation at this time - CXR with COPD changes - Allergy to albuterol per record, continue supplemental O2 PRN (8) Hypertension Code(s): I10 - ESSENTIAL (PRIMARY) HYPERTENSION SNOMED Code(s): 65647292 Comment: - Normotensive, SBP 120-130's - Continue metoprolol (9) Diabetes Code(s): E11.9 - TYPE 2 DIABETES MELLITUS WITHOUT COMPLICATIONS SNOMED Code(s) : 12979250 Comment: - Glucose 90-160's - Continue Lispro SS (10) History of CVA (cerebrovascular accident) Code(s): Z86.73 - PRSNL HX OF TIA (TIA), AND CEREB INFRC W/O RESID DEFICITS SNOMED Code(s): 359273189 Comment: - AMS stable, near baseline - Per patient's daughter she is sometimes forgetful, however, she can usually converse and is appropriate - Unclear cause of current AMS. No Mass or CVA on MRI (11) DVT prophylaxis Code(s): CLC0843 - SNOMED Code(s): 185114921 Comment: - SCDs (12) DNR (do not resuscitate) Comment: MOLST filled out with daughter and she wants limited medical interventions. Status and Disposition: Inpatient. Plan to discharge back to [facility] once medically stable and Pathology report is back, possibly on Wednesday
[2017-11-21] MEDS: Insulin LISPRO* 1 UNITS UNIT SUBCUT SCH ×4 (10:35→22:51)
[2017-11-21] MEDS: Metoprolol Succinate XL TAB* 50 MG PO SCH (10:36)
[2017-11-21] MEDS: oxyCODONE TAB* 5 MG TAB PO PRN (10:36)
[2017-11-21] MEDS: Cyclobenzaprine TAB* 10 MG PO PRN (10:36)
[2017-11-21] MEDS: Docusate CAP* 100 MG PO SCH ×2 (10:36→19:52)
[2017-11-22] MEDS: Acetaminophen TAB* 325 MG PO SCH ×4 (00:49→17:50)
[2017-11-22] MEDS: Cyclobenzaprine TAB* 10 MG PO PRN ×2 (01:10→07:10)
[2017-11-22] MEDS: HYDROmorphone INJ* 0.5 MG/0.5 ML SYRINGE IV PRN ×2 (02:11→07:10)
[2017-11-22] MEDS: Insulin LISPRO* 1 UNITS UNIT SUBCUT SCH ×2 (09:20→11:35)
[2017-11-22] MEDS: Metoprolol Succinate XL TAB* 50 MG PO SCH (09:27)
[2017-11-22] MEDS: Docusate CAP* 100 MG PO SCH (09:27)
[2017-11-22] MEDS ORDERED: oxyCODONE TAB* 5 MG TAB PO PRN (09:33)
[2017-11-22] MEDS: oxyCODONE SR TAB(*) 10 MG TAB.SR PO SCH ×3 (11:44→21:31)
[2017-11-22] MEDS ORDERED: Atropine 1% (ORAL/SL)* 15 ML BTL SL PRN (15:16)
--- NOTE | 2017-11-22 15:25 | PN ---
Subjective Date of Service: 11/22/17 Interval History: She denied pain but 10 minutes before had c/o pain and been medicated, then a few mintues after my visit she was moaning in pain. Family History: Unchanged from Admission Social History: Unchanged from Admission Past Medical History: Unchanged from Admission Objective Active Medications: Acetaminophen (Tylenol Tab*) 975 mg PO Q6H [facility] Last Admin: 11/22/17 11:43 Dose: 975 mg Al Hydrox/Mg Hydrox/Simethicone (Maalox Plus*) 30 ml PO Q6H PRN PRN Reason: INDIGESTION Last Admin: 11/20/17 17:03 Dose: 30 ml Atropine Sulfate (Atropine 1% (Oral/Sl)*) 2 drop SL Q2H PRN PRN Reason: DISCOMFORT Bisacodyl (Dulcolax Supp*) 10 mg ND DAILY PRN PRN Reason: CONSTIPATION Dextrose (D50w Syringe 50 Ml*) 12.5 gm IV PUSH .FOR FS < 60 - SS PRN PRN Reason: FS < 60 Fentanyl (Duragesic Patch 12 Mcg/Hr *) 12 mcg TRANSDERM Q72H [facility] Hydromorphone HCl (Dilaudid Inj*) 1 mg IV Q3H PRN PRN Reason: PAIN - UNCONTROLLED Last Admin: 11/22/17 07:10 Dose: 1 mg Ipratropium [place] (Atrovent 0.5 Mg Neb.Samara*) 0.5 mg INH Q4H PRN PRN Reason: SOB/WHEEZING Lorazepam (Ativan Tab(*)) 0.5 mg SL Q4H PRN PRN Reason: ANXIETY Metoprolol Succinate (Toprol Xl Tab*) 50 mg PO DAILY [facility] Last Admin: 11/22/17 09:27 Dose: 50 mg Morphine Sulfate (Morphine Oral Concentrate*) 5 mg SL Q30M PRN PRN Reason: PAIN Ondansetron HCl (Zofran Inj*) 4 mg IV Q4H PRN PRN Reason: NAUSEA/VOMITING Oxycodone HCl (Oxycontin(*)) 10 mg PO BID [facility] Last Admin: 11/22/17 11:44 Dose: 10 mg Oxycodone HCl (Roxycodone Tab*) 5 mg PO Q3H PRN PRN Reason: PAIN Vital Signs - 8 hr 11/22/17 11/22/17 11/22/17 08:00 08:02 08:17 Temperature 97.9 F Pulse Rate 59 Respiratory 18 15 Rate Blood Pressure 96/48 108/60 (mmHg) O2 Sat by Pulse Oximetry 11/22/17 11/22/17 11/22/17 09:20 11:44 12:42 Temperature 98.9 F Pulse Rate 65 Respiratory 16 18 18 Rate Blood Pressure 135/52 (mmHg) O2 Sat by Pulse 97 Oximetry 11/22/17 14:12 Temperature Pulse Rate Respiratory 18 Rate Blood Pressure (mmHg) O2 Sat by Pulse Oximetry Oxygen Devices in Use Now: None Appearance: Lethargic, responds slowly. Neutral affect. At times looks very comfortable, at times moaning or screaming in pain. Neurological: - - She responds to voice but can't answer any questions reliably. She cannot state her own first name or identify her daughter at her bedside. No tremor. Result Diagrams: 11/21/17 05:35 11/21/17 05:35 Microbiology and Other Data: Microbiology 11/10/17 15:40 Nasal Screen MRSA (PCR) - Final Nasal Mrsa Not Detected Diagnostic Imagin11/10/172106 - CT PELVIS W/O IMPRESSION: 1. DISPLACED ANGULATED RIGHT SUBCAPITAL FEMORAL NECK FRACTURE. 2. SCLEROTIC LESION WITHIN THE RIGHT ISCHIAL TUBEROSITY. 3. ENLARGEMENT OF THE LEFT PSOAS AND ILIACUS MUSCLES MOST CONSISTENT WITH A MASS , BULKY ADENOPATHY OR HEMATOMA. RECOMMEND A CT OF THE CHEST, ABDOMEN AND PELVIS WITH CONTRAST FOR FURTHER EVALUATION. 11/11/17 1130 - CTA HEAD IMPRESSION: 1. NO INTERNAL CAROTID ARTERY STENOSIS BY NASCET CRITERIA. 2. NO ANEURYSM, VASCULAR MALFORMATION, OCCLUSION, OR STENOSIS OF THE VISUALIZED INTRACRANIAL CIRCULATION.. 3. ATHEROSCLEROSIS. 4. PROXIMAL VESSEL ISCHEMIC CHANGE. 5. NO ACUTE INTRACRANIAL PATHOLOGY. 6. MULTIPLE LOBULATED MASSES OF THE MUSCULATURE OF THE RIGHT SHOULDER GIRDLE, EVALUATED ON THE CURRENT EXAMINATION SUSPICIOUS FOR SARCOMA VERSUS METASTATIC DISEASE. 11/11/17 8967 - MRI BRAIN W/O IMPRESSION: 1. Negative for stigmata of acute or subacute ischemia. 2. Relative mild encephalomalacia related to old LEFT MCA distribution infarct involving the posterior LEFT frontal lobe and parietal lobe. 3. Mild diffuse atrophy and stigmata of chronic small vessel ischemic disease. 11/11/17 - TRANSTHORACIC ECHO Conclusions There is normal left ventricular systolic function. The estimated ejection fraction is 50-55%. Global left ventricular wall motion and contractility are within normal limits. Mild concentric left ventricular hypertrophy is observed. There is an E to A reversal in the mitral valve flow pattern suggestive of diastolic dysfunction. There is mild to moderate aortic regurgitation. There is mild to moderate mitral regurgitation. There is mild to moderate tricuspid regurgitation. There is evidence of mild to moderate pulmonary hypertension. There is no prior echocardiogram available to compare with at this time. Assess/Plan/Problems-Billing Assessment: Ms. Torres is a 77 year old female patient transferred from a [facility] for femur fracture 2/2 unwitnessed fall. PMHx sig for COPD, previous CVAs, DM and HTN that presents with a right sided displaced subcapital femoral neck fracture and multiple masses concerning for malignancy. 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 Large burden of disease in retroperitoneal space. Very poor performance status, likely will continue to deteriorate due to her prgressive dementia. Note albumin of 2.0. Discussed with Dr. Keller. Appropriate for Hospice. I spoke at [facility] with the christine who is the HCP. She is very agreeable to Hospice care. Status and Disposition: Inpatient. Plan to discharge back to [facility] November 23.
[2017-11-22] MEDS ORDERED: fentaNYL PATCH 12 MCG/HR TRANSDERM SCH (16:00)
[2017-11-22] MEDS: fentaNYL Patch Check Q Shift 1 NOTE FOLLOW UP SCH ×2 (16:16→18:48)
[2017-11-22] MEDS ORDERED: fentaNYL Patch Check Q Shift 1 NOTE FOLLOW UP SCH (19:00)
[2017-11-23] MEDS: Morphine ORAL CONCENTRATE* 5 MG/0.25 ML ORAL.SYRIN SL PRN ×3 (03:46→11:31)
[2017-11-23] MEDS: LORazepam TAB(*) 0.5 MG SL PRN ×2 (04:08→08:32)
[2017-11-23] MEDS: Acetaminophen TAB* 325 MG PO SCH ×3 (06:06→07:15)
[2017-11-23] MEDS: fentaNYL Patch Check Q Shift 1 NOTE FOLLOW UP SCH (06:41)
[2017-11-23] MEDS: oxyCODONE SR TAB(*) 10 MG TAB.SR PO SCH (07:15)
[2017-11-23 08:14] VITALS: BP 138/54
[2017-11-23] MEDS: Metoprolol Succinate XL TAB* 50 MG PO SCH (08:33)
[2017-11-23] MEDS ORDERED: fentaNYL PATCH 25 MCG/HR TRANSDERM SCH (10:00)
--- NOTE | 2017-11-23 10:38 | PN ---
Progress Note - Progress Note Date of Service: 11/23/17 Note: Time spent on discharge including exam of patient, discussion with daughter, nurse, CM, preparation of discharge documents 35 minutes.
--- NOTE | 2017-11-23 11:01 | TRS ---
CC: Dr. Marty Silva DATE OF ADMISSION: 11/10/2017. DATE OF TRANSFER: 11/23/2017. HISTORY: This 77-year-old woman presented with right hip pain. She is a resident of [facility]. She sustained a fall on the day of transfer here. She had had multiple falls before. She was found to have a right hip fracture. There was some concern it might be a pathologi c fracture. CT scan of the abdomen and pelvis showed extensive retroperitoneal lymphadenopathy. She had a biopsy of the left axillary lymph node and also of a mass near her right scapula. Both these biopsies showed low grade follicular lymphoma. In view of her advanced dementia and entering the sabrina ght loss stage, the family elected for comfort care. This was discussed with the oncologist. She was given some Oxycodone slow release; however, as she is going on hospice care, I think the oral route will not be reliable. She was started on a Fentanyl patch which was increased to 25 mcg per h our on the day of transfer. This can be titrated up as needed, although she is a little difficult to evaluate in terms of pain. She is really not able to communicate at all well. FINAL DIAGNOSES: 1. Right hip fracture. 2. Dementia. 3. Lymphoma. TRANSFER MEDICATIONS: 1. Atropine 1% two drops sublingual every 2 hours prn. 2. Fentanyl patch 25 mcg per hour, change every 72 hours. 3. Ipratropium 0.5 mg by nebulizer every 4 hours prn. 4. Lorazepam 0.5 mg sublingual every 4 hours prn. 5. Metoprolol Succinate 50 mg daily. 6. Morphine oral concentrate 5 mg sublingual every 30 minutes prn. [id number]/[facility] #: [id number]
== END 2017-11-23 12:00 | DRG 841 ==
LOC: SSU 15:35 → MEDTELE 11-16 18:47
PROVIDERS: ADMIT Internal Medicine; ATTEND Internal Medicine
PROC: 07D63ZX Extraction of Left Axillary Lymphatic, Percutaneous Approach, Diagnostic (ICD-10-PCS; principal; 2017-11-12)
PROC: 07DH3ZX Extraction of Right Inguinal Lymphatic, Percutaneous Approach, Diagnostic (ICD-10-PCS; 2017-11-12)
PROC: 0JBD3ZX Excision of Right Upper Arm Subcutaneous Tissue and Fascia, Percutaneous Approach, Diagnostic (ICD-10-PCS; 2017-11-18)
DX: C82.94 Follicular lymphoma, unspecified, lymph nodes of axilla and upper limb (principal); M84.459A Pathological fracture, hip, unspecified, initial encounter for fracture; F05 Delirium due to known physiological condition; S70.11XA Contusion of right thigh, initial encounter; I10 Essential (primary) hypertension; E11.9 Type 2 diabetes mellitus without complications; J44.9 Chronic obstructive pulmonary disease, unspecified; F03.90 Unspecified dementia, unspecified severity, without behavioral disturbance, psychotic disturbance, mood disturbance, and anxiety; E27.8 Other specified disorders of adrenal gland; D49.89 Neoplasm of unspecified behavior of other specified sites; G93.89 Other specified disorders of brain; M25.511 Pain in right shoulder; R09.02 Hypoxemia; K59.00 Constipation, unspecified; I48.91 Unspecified atrial fibrillation; E87.70 Fluid overload, unspecified; Z66 Do not resuscitate; E87.6 Hypokalemia; E83.42 Hypomagnesemia; W19.XXXA Unspecified fall, initial encounter; Z98.51 Tubal ligation status; Z90.49 Acquired absence of other specified parts of digestive tract; Z87.891 Personal history of nicotine dependence; Z72.89 Other problems related to lifestyle; Z91.19 Patient's noncompliance with other medical treatment and regimen; Z86.73 Personal history of transient ischemic attack (TIA), and cerebral infarction without residual deficits; Z88.8 Allergy status to other drugs, medicaments and biological substances; R29.6 Repeated falls; Z79.891 Long term (current) use of opiate analgesic; R59.0 Localized enlarged lymph nodes; Y92.129 Unspecified place in nursing home as the place of occurrence of the external cause; R34 Anuria and oliguria
CPT/HCPCS: 36415; 70496; 70498; 70551; 71045; 71260; 72170; 72192; 74177; 80048; 80053; 81003; 83735; 85025; 85610; 87040; 87641; 88172; 88173; 88184; 88185; 88187; 88188; 88189; 88305; 88360; 93005; 93306; 99223; 99231; A9270-GY; J1170; J1644; J1885; J1940; J2270; J3360; J3475; J3480; J3490; Q9967